=== PATIENT | male | born 1980 | race Caucasian/White ===

== ENCOUNTER 2022-10-23 10:42 | Outpatient (AMB) | payer OTHER, SELFPAY ==
--- NOTE | 2022-10-23 11:11 | A.OFFVIS_ITS ---
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 Accompanied by: Self / Same As Patient Allergies No Known Allergies [No Known Allergies*] Allergy (Unverified 10/23/22 23:18) Environmental Allergy (Unknown, Uncoded 10/23/22 23:18) Unknown shell fish Allergy (Unknown, Uncoded 10/23/22 23:18) hives shellfish Allergy (Unknown, Uncoded 10/23/22 23:18) throat itch triggered even by the smell Medication List - Last Reconciled 10/23/22 by YAMILETH Maravilla-SELENE acetaminophen 325 mg PO BID PRN acetaminophen-codeine 300-30 mg 1 tab PO Q8H 3 days albuterol sulfate 90 mcg/actuation 2 puffs inhalation QID cetirizine 10 mg PO DAILY desonide 0.05% 1 appl topical BID diazepam (Valium) 2 mg PO DAILY epinephrine 0.3 mg IM ONCE PRN fludrocortisone 0.1 mg PO BID fluticasone propionate 50 mcg/actuation 1 spray intranasal DAILY gabapentin 200 mg PO BEDTIME magnesium oxide 420 mg PO DAILY omeprazole 20 mg PO DAILY riboflavin (vitamin B2) 100 mg PO DAILY sildenafil 100 mg PO DAILY PRN HPI HPI Comments History of Present Illness Details Christian is a very pleasant male patient of Dr. Young. He has a past medical history of alcohol dependence in remission, bronchial asthma, chronic rhinitis, GERD, insomnia, intervertebral disc disorders with radiculopathy in the lumbar region, erectile dysfunction, migraines, CLARE, PTSD,and tinnitus. He presents to the office today for - vasectomy evaluation Vasectomy evaluation The patient presents for vasectomy consultation.? He is currently however in a relationship. He has fathered -? 4 children, with a single partner.? The youngest child is 9 years old and oldest is 19 years old. His partner is aware and permissive for a vasectomy. Current form of control is hormones as his partner is using control patch Current employment is working in [place] for the [employer]. The vasectomy may be complicated due to a history of no complicating issues. Patient education has been provided via AUA video, via printed information, risks of failure, recovery time, bruising and potential pain syndrome have been stressed Discussion today focused on the presence of vasectomy and the risks, benefits and alternatives that are available. Vasectomy as intended as a permanent form of control. Printed information and literature was provided to the patient. Overall there is a one in 2500 failure rate. This can occur at any time after vasectomy. Risks were discussed highlighting hematoma, spermatocele, epididymal congestion, development of sperm antibodies, and development of chronic pain estimated between 1-5%. The procedure was reviewed in detail. Anatomical diagrams of the male genitalia were used to explain the location of the vas deferens. The vas deferens will be transected, the proximal end will be cauterized, a metal clip would be applied to separate the 2 vas deferens ends. It was explained the procedure will be done in the office and takes approximately 10-15 minutes. Less common problems that arise with vasectomy include hematoma, bleeding, allergic reaction to anesthetic, epididymal infection, epididymal congestion, scrotal discomfort, spermatic leak, spermatic granuloma and the possibility of antisperm antibodies. He understands these risks and wishes to proceed. Consent was signed at the office today. He also understands that it takes 12 weeks for sperm to fully clear the system. He will need to provide a semen sample at 12 weeks and if this is not clear a 2nd sample at 16 weeks. Medical clearance to stop using protection will only be provided if he satisfies published criteria for sperm clearance. [facility] Medical History Alcohol dependence in remission Brief loss of consciousness Bronchial asthma Chronic rhinitis Ganglion Gastro-esophageal reflux disease without esophagitis Insomnia Intervertebral disc disorders with radiculopathy, lumbar region Male erectile dysfunction, unspecified Migraine headache Migraine without aura, not intractable, without status migrainosus Mild intermittent asthma, uncomplicated Obstructive sleep apnea (adult) (pediatric) Other congenital malformation of penis Pain in left knee Post traumatic stress disorder Seizure disorder Sleep apnea Superior glenoid labrum lesion Syncope and collapse Tinnitus Surgical History History of spinal fusion Review of Systems Const All systems reviewed & are unremarkable except as noted in HPI and below Reports as per HPI Eyes Reports no additional complaints ENT Reports as per HPI Card Reports no additional complaints Resp Reports as per HPI GI Reports as per HPI Reports as per HPI Musc Reports as per [facility] Neuro Reports as per [facility] Psych Reports as per HPI Endo Reports as per HPI Arpan/Lymph Reports no additional complaints Aller/Immun Reports as per HPI Physical Exam Const General: cooperative, healthy appearing, comfortable, no acute distress, well developed, alert and awake Orientation/consciousness: patient oriented x3 Limitations: no limitations HEENT Head: Yes normal to inspection, Yes normocephalic and Yes atraumatic Ears: hearing grossly normal bilaterally Eyes General: appearance normal, both eyes and all related structures Neck Neck: Yes normal visual inspection and Yes trachea midline Chest Chest palpation & inspection: normal inspection of the chest Resp Effort & Inspection: normal respiratory effort and able to speak in complete sentences Cardio Rate: regular rate GI Inspection: Yes normal to inspection General: Yes no CVA tenderness Male General Exam: Yes normal external exam Penis: normal penis and circumcised Meatus: meatus normal Scrotum: scrotum normal Testes: Testes normal Back/Spine/Pelvis Back: no CVA tenderness Skin General skin exam: no rashes or lesions noted Neuro General: patient oriented x3 Extrem General: Yes normal to inspection Psych Appearance: grossly normal and well kempt Mental Status: mental status grossly normal Speech and movement: Normal speech and movement present and Clear speech present Affect: normal affect Attitude: cooperative Thought process: Normal thought process present Thought content: Normal thought content present Insight: Good insight present (Psych) Judgement: Good judgement present (Psych) Results AMB Urinalysis, Automated UA Leukoctes 0 Kaylah/uL Last Edit by [facility] on 10/23/22 11:40 UA Nitrite Last Edit by [facility] on 10/23/22 11:40 UA Urobilinogen 0.2 mg/dL Last Edit by [facility] on 10/23/22 11:40 UA Protein 0 mg/dL Last Edit by [facility] on 10/23/22 11:40 UA pH 6.5 Last Edit by [facility] on 10/23/22 11:40 UA Blood 0 Jimmie/uL Last Edit by [facility] on 10/23/22 11:40 UA Specific Jefferson 1.015 Last Edit by [facility] on 10/23/22 11:40 UA Ketone Last Edit by [facility] on 10/23/22 11:40 UA Bilirubin 0 mg/dL Last Edit by Alisia Reyes on 10/23/22 11:40 UA Glucose 0 mg/dL Last Edit by Alisia Reyes on 10/23/22 11:40 Results Reviewed Results Reviewed: Laboratory Last Values Urine pH (Auto) 6.5 10/23/22 11:13 Specific Jefferson (Auto) 1.015 10/23/22 11:13 Urine Protein (Auto) 0 mg/dL 10/23/22 11:13 Glucose (UA)(Auto) 0 mg/dL 10/23/22 11:13 Urine Blood (Auto) 0 Jimmie/uL 10/23/22 11:13 Urine Bilirubin (Auto) 0 mg/dL 10/23/22 11:13 Urine Urobilinogen (Auto) 0.2 mg/dL 10/23/22 11:13 Leukocyte Esterase (Auto) 0 Kaylah/uL 10/23/22 11:13 Assessment & Plan Assessment & Plan (1) Anxiety about health: Code(s): F41.8 - Other specified anxiety disorders (2) Vasectomy evaluation: Code(s): Z30.09 - Encounter for other general counseling and advice on contraception Plan In office urinalysis results reviewed with the patient today Discussed at length vasectomy; discussed risks and benefits Prescriptions provided; discussed importance of bringing medication to office prior to procedure All questions were answered Will schedule for vasectomy with Dr. Leong as discussed. Orders: Orders AMB Urinalysis Automated Today Z13.9 - Encounter for screening, unspecified Medications: New diazepam (Valium) take one tab when arrive for procedure 2 mg PO DAILY 2 tabs 0RF anxiety F41.8 - Other specified anxiety disorders acetaminophen-codeine 300-30 mg 1 tab PO Q8H 3 days 9 tabs 0RF F41.8 - Other specified anxiety disorders Patient Instructions: The patient had an opportunity to ask questions regarding the treatment plan. All questions were answered. Physical exam, labs, and imaging were discussed and reviewed in detail. As well as risks, benefits, and discussion of treatment choices. No major barriers to understanding were identified. The patient expressed understanding and agreement with the above treatment plan. The patient was made aware they should contact our office by phone for worsening of their current condition, the appearance of new symptoms, or with any questions or concerns. Compliance is encouraged with any medications and follow up testing that is ordered. It is a privilege to be allowed the opportunity to participate in? your urological care.? Again, if you have any questions or concerns If you have any questions or concerns please do not hesitate to contact me. The office is [phone]. This note is constructed using voice recognition software. While every effort has been made to ensure accuracy office clerk assistant errors may have been included. Yours sincerely, YAMILETH Maravilla-SELENE Coding Level of Care Code New Pt Level 4 (40181) Diagnoses Anxiety about health F41.8 Vasectomy evaluation Z30.09
== END 2022-10-23 12:00 | disposition home or self-care (01) ==
PROVIDERS: Visit Provider Nurse Practitioner Family
DX: F41.8 Other specified anxiety disorders (principal); Z30.09 Encounter for other general counseling and advice on contraception
CPT/HCPCS: 99204

== ENCOUNTER → 2022-10-23 10:42 | Outpatient (BNVA) | payer OTHER, SELFPAY | PROVIDERS: Visit Provider Nurse Practitioner Family | DX: Z30.09 Encounter for other general counseling and advice on contraception (principal); F41.8 Other specified anxiety disorders | CPT/HCPCS: 99202 ==

== ENCOUNTER 2022-11-15 08:22 | Outpatient (AMB) | payer OTHER, SELFPAY ==
[2022-11-15 08:23] VITALS: BP 104/68; PULSE 68; O2SAT 97; BMI 26.5
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
== END 2022-11-15 09:49 | disposition home or self-care (01) ==
PROVIDERS: PCP Internal Medicine; Visit Provider Nurse Practitioner Family
DX: G43.109 Migraine with aura, not intractable, without status migrainosus (principal); G47.33 Obstructive sleep apnea (adult) (pediatric); G44.309 Post-traumatic headache, unspecified, not intractable
CPT/HCPCS: 99204; 99214

== ENCOUNTER → 2022-11-15 08:22 | Outpatient (BNVA) | payer OTHER, SELFPAY | PROVIDERS: PCP Internal Medicine; Visit Provider Nurse Practitioner Family | DX: G43.109 Migraine with aura, not intractable, without status migrainosus (principal); G44.309 Post-traumatic headache, unspecified, not intractable; G47.33 Obstructive sleep apnea (adult) (pediatric) | CPT/HCPCS: 99202 ==

== ENCOUNTER → 2022-12-29 10:16 | Outpatient (BNVA) | payer OTHER, SELFPAY | PROVIDERS: PCP Internal Medicine; Visit Provider Nurse Practitioner Family ==

== ENCOUNTER 2023-02-01 17:03 | Emergency (ER) | payer OTHER, SELFPAY ==
--- NOTE | ~2023-02-01 | XR_ITS ---
EXAMINATION: XR RIBS, RIGHT CLINICAL INFORMATION: Fall. COMPARISON: None available. TECHNIQUE: 3 views of the right ribs were obtained. FINDINGS: Lungs are clear. No consolidation, pneumothorax, or pleural effusion. The cardiomediastinal silhouette and pulmonary vasculature are normal. Osseous structures are unremarkable. Multiple views of right ribs reveal no visible fracture or bony abnormality. The soft tissues are normal. XR/XR ribs RT min 3V w CXR1V IMPRESSION: 1. Unremarkable chest exam. 2. Unremarkable right rib exam.
[2023-02-01 17:18] VITALS: BP 111/71; PULSE 71; RESP 18; TEMP 36.8; O2SAT 98; BMI 25.8
--- NOTE | 2023-02-01 17:20 | ED_ITS ---
HPI - General Adult General Chief complaint: Fall Stated complaint: right side rib inj Time Seen by Provider: 02/01/23 18:22 Source: patient Mode of arrival: ambulatory Limitations: no limitations History of Present Illness HPI narrative: Patient is a 42-year-old male presenting to the emergency department complaint of right lateral rib pain since a fall on Sunday. Patient reports that he became dizzy and grabbed onto a metal chair, but the chair tipped causing him to fall on to the back of the chair which made contact with his ribs. He denies any head strike or loss of consciousness. He is not anticoagulated. Reports he has been using ibuprofen for pain. Denies any shortness of breath. Reports pain increases with palpation and movement. Patient reports that he is currently seeing his PCP regarding his episodes of dizziness and labile blood pressures and states that he is only interested in being evaluated for his rib pain. MD complaint: Right rib pain Onset (ago): day(s) Location: chest Radiation: non-radiation Severity: moderate Severity scale (1-10): 7 Quality: aching Pain Consistency: colicky Relieving factors: rest Exacerbating factors: movement and other (Palpation) Associated symptoms: denies other symptoms Treatments prior to arrival: NSAID Related Data Home Medications Medication Instructions Recorded Confirmed acetaminophen 325 mg tablet 325 mg PO BID PRN 09/28/22 11/15/22 albuterol sulfate 90 mcg/actuation 2 puff inhalation QID 09/28/22 11/15/22 aerosol inhaler cetirizine 10 mg tablet 10 mg PO DAILY 09/28/22 11/15/22 desonide 0.05 % topical cream 1 appl topical BID 09/28/22 11/15/22 epinephrine 0.3 mg/0.3 mL 0.3 mg IM ONCE PRN 09/28/22 11/15/22 injection, auto-injector fluticasone propionate 50 1 spray intranasal DAILY 09/28/22 11/15/22 mcg/actuation nasal spray,suspension omeprazole 20 mg capsule,delayed 20 mg PO DAILY 09/28/22 11/15/22 release sildenafil 100 mg tablet 100 mg PO DAILY PRN 09/28/22 11/15/22 Previous Rx's Medication Instructions Recorded acetaminophen 300 mg-codeine 30 mg 1 tab PO Q8H 3 days #9 tabs 10/23/22 tablet diazepam 2 mg tablet (Valium) 2 mg PO DAILY anxiety #2 tabs 10/23/22 amitriptyline 10 mg tablet 10 mg PO BEDTIME 30 days #30 tabs 11/15/22 sumatriptan succinate 100 mg tablet 50 - 100 mg (0.5 - 1 x 100 mg) PO 11/15/22 .COMPLEX PRN migraine headache 30 days #12 tabs rizatriptan 10 mg tablet 5 - 10 mg (0.5 - 1 x 10 mg) PO Q2H 12/05/22 PRN migraine headache 21 days #12 tabs erenumab-aooe 140 mg/mL 140 mg subcut ONCE 30 days #1 mL 12/21/22 subcutaneous auto-injector (Aimovig Autoinjector) lidocaine 5 % topical patch 1 patch topical DAILY #15 ea 02/01/23 Allergies Allergy/AdvReac Type Severity Reaction Status Date / Time shell fish Allergy Intermediate hives Uncoded 02/01/23 17:17 shellfish Allergy Intermediate throat Uncoded 02/01/23 17:17 itch triggered even by the smell Environmental Allergy Unknown Unknown Uncoded 11/15/22 08:28 Review of Systems Review of Systems: As per HPI. Yes all other systems are reviewed and are negative Constitutional: Constitutional: Reports as per HPI [facility] Past Medical History Medical History (Updated 02/01/23 @ 18:53 by Marychuy Hill NP) Syncope and collapse Superior glenoid labrum lesion Pain in left knee Obstructive sleep apnea (adult) (pediatric) Mild intermittent asthma, uncomplicated Migraine without aura, not intractable, without status migrainosus Male erectile dysfunction, unspecified Intervertebral disc disorders with radiculopathy, lumbar region Insomnia Gastro-esophageal reflux disease without esophagitis Ganglion Chronic rhinitis Brief loss of consciousness Alcohol dependence in remission Other congenital malformation of penis Seizure disorder Bronchial asthma Tinnitus Migraine headache Sleep apnea Post traumatic stress disorder Surgical History (Updated 11/15/22 @ 08:32 by Diana Soto CMA) History of shoulder surgery History of spinal fusion Social History Social History (Updated 11/15/22 @ 08:32 by Diana Soto CMA) Alcohol intake: current Alcohol intake frequency: holidays/special occasions only Patient Tobacco Use Status: Never used Tobacco Substance Use Type: Marijuana Advance Directives: No Advance Directives Information Provided: No Physical Exam ED Vital Signs: Vital Signs - 24 hr 02/01/23 17:18 Temperature 98.2 F Pulse Rate 71 Respiratory Rate 18 Blood Pressure 111/71 Pulse Oximetry 98 Oxygen Delivery Method Room Air BMI result Body Mass Index 25.8 Vital signs have been reviewed and appear to be correct. Blood pressure normal. Heart rate normal. Respiratory rate normal. Temperature normal. Oxygen saturation normal. Const General: cooperative, healthy appearing and no acute distress Orientation/consciousness: oriented to person, oriented to place, oriented to time and patient oriented x3 Limitations: no limitations HENMT Head: Yes normocephalic and Yes atraumatic Ears: external ears normal General nose exam: Normal external nose present Face and sinus: Yes face symmetric Mouth: oropharynx normal and moist mucous membranes Throat: Yes uvula midline Eyes Pupils: Equal, round and reactive pupils present Neck Neck: Yes normal visual inspection and Yes supple Chest Chest palpation & inspection: tenderness rib right mid-axillary line involving the 10th rib, involving the 11th rib and involving the 12th rib and other (slight ecchymosis over right lower ribs at mid-axillary line) Resp Effort & Inspection: normal respiratory effort, able to speak in complete sentences, no respiratory distress and no use of accessory muscles Auscultation: clear to auscultation bilaterally Cardio Rate: regular rate Rhythm: regular rhythm Heart sounds: S1 normal heart sound present and S2 normal heart sound present GI Palpation (GI): Soft to palpation and nontender Auscultation: normoactive bowel sounds General: Yes no CVA tenderness Back/Spine/Pelvis Back: no CVA tenderness Skin General skin exam: elasticity normal and turgor normal Neuro General: oriented to person, oriented to place, oriented to time, patient oriented x3, moves all extremities, no focal motor deficits and CN's II-XI intact bilaterally Cranial nerves: Yes Equal, round and reactive pupils present Cognition (Neuro): normal cognition Extrem General: Yes full ROM, Yes no pedal edema and Yes no calf tenderness Psych Mental Status: mental status grossly normal Affect: normal affect Thought process: Normal thought process present Course Course Course Narrative: RME- 42 year old male presents for evaluation of right rib pain after a fall 4 days ago. Patient has a history of neurocardiogenic syncope he has been seen by his doctor in the past a workup for this. He reports that he got dizzy and fell on Sunday which is consistent with his history but he landed with his ribs on the right side of a chair and has had pain at presents with deep breathing or movement. Plan for x-ray of the right ribs with PA chest. The patient reports that he has not been dizzy in the last 4 days and he has had this worked up numerous times in the past. Medical Decision Making Medical Decision Making [facility] Narrative: Patient is a 42-year-old male presenting to the emergency department complaint of right lateral rib pain since a fall on Sunday. On exam patient is awake, A+Ox3, VS WNL, afebrile, normal neurological exam without focal deficits, physical exam findings as above. Given reported symptoms and physical exam findings, initial differential includes rib contusion, rib fracture, pneumothorax, muscle strain. X-ray notable for no evidence of rib fracture or pneumothorax. My interpretation is in agreement with the radiologist's interpretation. Discussed with patient that given mild ecchymosis symptoms are likely related to contusion. Advised patient to continue using ibuprofen, can add Tylenol. Will prescribe a topical lidocaine patches. Return precautions discussed at bedside. Instructed patient to follow-up with primary care provider. Patient verbalized understanding of and agreement with plan. Differential Diagnosis Differential Diagnoses: The differential diagnosis associated with the presentation includes As per MDM. Independent Interpretation I performed an independent interpretation of an: Plain X-Ray Interpretation: No evidence of rib fracture or pneumothorax. Radiology Impression Discussion of test interpretation with radiology: I have reviewed the radiologist's reading. Radiologist Impression: XR/XR ribs RT min 3V w CXR1V IMPRESSION: 1. Unremarkable chest exam. 2. Unremarkable right rib exam. External Record Review External record reviewed: Inpatient record, Office record and Outpatient record Prescription Management I considered prescription management with: Pain Medication Discharge Plan Discharge Clinical Impression: Contusion of rib on right side Qualifiers: Encounter type: initial encounter Qualified Code(s): S20.211A - Contusion of right front wall of thorax, initial encounter Patient Disposition: Home, Self-Care Instructions: Contusion in Adults (ED), Rib Contusion (ED) Additional Instructions: You were evaluated in the emergency department today for rib pain. Your x-ray did not show evidence of any fractures. You should continue to utilize ibuprofen every 6 hours as needed for pain, can also alternate 650 mg of Tylenol every 6 hours for pain. You are being prescribed topical lidocaine patches which you can wear for up to 12 hours in a 24 hour period, do not apply heat directly over the patches. Please follow-up with your primary care provider. Return to the emergency department if you develop chest pain, shortness of breath, fever or any other concerning symptoms. Prescriptions: New lidocaine 5 % adhesive patch,medicated 1 patch topical DAILY Qty: 15 0RF Rx Instructions: leave on most painful area for up to 12 hrs, do not apply heat directly over patches No Action rizatriptan 10 mg tablet 5 - 10 mg PO Q2H PRN (Reason: migraine headache) 21 Days Qty: 12 3RF Rx Instructions: max 2 tabs per day or 4 tabs per week Aimovig Autoinjector 140 mg/mL auto-injector 140 mg subcut ONCE 30 Days Qty: 1 6RF albuterol sulfate 90 mcg/actuation HFA aerosol inhaler 2 puff inhalation QID cetirizine 10 mg tablet 10 mg PO DAILY epinephrine 0.3 mg/0.3 mL auto-injector 0.3 mg IM ONCE PRN fluticasone propionate 50 mcg/actuation spray,suspension 1 spray intranasal DAILY Rx Instructions: administer into each nostril omeprazole 20 mg capsule,delayed release(DR/EC) 20 mg PO DAILY sildenafil 100 mg tablet 100 mg PO DAILY PRN Rx Instructions: administer 30 minutes to 4 hours before activity desonide 0.05 % cream 1 appl topical BID acetaminophen 325 mg tablet 325 mg PO BID PRN diazepam [Valium] 2 mg tablet 2 mg PO DAILY Qty: 2 0RF Rx Instructions: take one tab when arrive for procedure acetaminophen-codeine 300-30 mg tablet 1 tab PO Q8H 3 Days Qty: 9 0RF amitriptyline 10 mg tablet 10 mg PO BEDTIME 30 Days Qty: 30 3RF sumatriptan succinate 100 mg tablet 50 - 100 mg PO .COMPLEX PRN (Reason: migraine headache) 30 Days Qty: 12 6RF Rx Instructions: 50 - 100 mg orally at onset of headache, may repeat in 2 hrs PRN; max 2 tabs per day or 4 tabs/week (may take with Ibuprofen)
== END 2023-02-01 19:18 | disposition home or self-care (01) ==
PROVIDERS: Emergency Provider Internal Medicine
DX: S20.211A Contusion of right front wall of thorax, initial encounter (principal); R07.81 Pleurodynia; R07.89 Other chest pain; M54.2 Cervicalgia; R51.9 Headache, unspecified; R42 Dizziness and giddiness; Z79.899 Other long term (current) drug therapy
CPT/HCPCS: 71101; 99282; 99283

== ENCOUNTER 2023-03-21 14:41 | Outpatient (AMB) | payer OTHER, SELFPAY ==
--- NOTE | 2023-03-21 15:01 | MHC.OFFVIS ---
Intake Intake Visit Reasons: vasectomy Intake Note: Patient is present for Vasectomy Allergies shell fish Allergy (Intermediate, Uncoded 03/21/23 15:02) hives shellfish Allergy (Intermediate, Uncoded 03/21/23 15:02) throat itch triggered even by the smell Environmental Allergy (Unknown, Uncoded 03/21/23 15:02) Unknown HPI HPI Comments History of Present Illness Details Christian is a pleasant male patient of Dr. Young. He has a past medical history of alcohol dependence in remission, bronchial asthma, chronic rhinitis, GERD, insomnia, intervertebral disc disorders with radiculopathy in the lumbar region, erectile dysfunction, migraines, CLARE, PTSD,and tinnitus. He presents to the office today for - vasectomy evaluation Works for [employer] Vasectomy procedure The patient presents for vasectomy procedure.? He is currently however in a relationship. He has fathered -? 4 children, with a single partner.? The youngest child is 9 years old and oldest is 19 years old. His partner is aware and permissive for a vasectomy. Current form of control is hormones as his partner is using control patch 12w f/u [facility] Medical History Syncope and collapse Superior glenoid labrum lesion Pain in left knee Obstructive sleep apnea (adult) (pediatric) Mild intermittent asthma, uncomplicated Migraine without aura, not intractable, without status migrainosus Male erectile dysfunction, unspecified Intervertebral disc disorders with radiculopathy, lumbar region Insomnia Gastro-esophageal reflux disease without esophagitis Ganglion Chronic rhinitis Brief loss of consciousness Alcohol dependence in remission Other congenital malformation of penis Seizure disorder Bronchial asthma Tinnitus Migraine headache Sleep apnea Post traumatic stress disorder Surgical History History of shoulder surgery History of spinal fusion Social History Alcohol intake: current Alcohol intake frequency: holidays/special occasions only Patient Tobacco Use Status: Never used Tobacco Substance Use Type: Marijuana Review of Systems Const Denies chills and Denies fever(s) Card Reports no additional complaints and Denies syncope Resp Denies cough GI Denies abdominal pain and Denies heartburn Reports as per HPI and Denies change in libido Neuro Denies syncope Psych Denies change in libido Endo Denies change in libido Physical Exam Const General: cooperative, healthy appearing, comfortable and no acute distress Orientation/consciousness: patient oriented x3 HEENT Face and sinus: Yes normal facial exam Mouth: moist mucous membranes Neck Neck: Yes normal visual inspection, Yes full ROM and Yes trachea midline Chest Chest palpation & inspection: normal inspection of the chest Resp Effort & Inspection: normal respiratory effort, able to speak in complete sentences and no respiratory distress GI Inspection: Yes normal to inspection Back/Spine/Pelvis Cervical Spine: normal cervical lordosis Thoracic/Lumbar Spine: thoracic and lumbar spine normal to inspection Skin General skin exam: no rashes or lesions noted Neuro General: patient oriented x3, gait normal, tone normal and moves all extremities Extrem General: Yes normal to inspection and Yes capillary refill normal Office Procedures Vasectomy Details: Preoperative diagnosis: Anxiety regarding Postoperative diagnosis: Anxiety regarding unplanned Procedure: Bilateral vasectomy Informed consent had been completed. Preoperative and postoperative instructions were provided to the patient. The patient has transportation to home identified at the completion of the procedure. Anti-anxiolytic prescription medication had been taken after consent verification and all questions answered. Tylenol with Codeine pain medication was also provided. The penis was elevated using a rubber band that was attached to the patient's shirt. Both vasa were palpated through the skin using a 3 finger technique and the penoscrotal junction was prepped with Betadine. After Betadine application the left vas was elevated using a 3 finger grasping technique. 1% lidocaine was used to create a subdermal bubble. Approximately 2 minutes were allowed to for local anesthetic uptake. Further anesthetic was then advanced using the 25-gauge needle along the vasa in a proximal fashion. Using the sharp spreading instrument the scrotum was spread longitudinally in line with the vasa. The vasa was elevated from the scrotum using a ring clamp. Care was taken to elevate the superior portion of the vas. Using the sharp spreading instrument the vasal sheath was removed from the covering of this segment of the vas. A fresh knife blade was used to partially divide the vasal sheath and to strip the vasal sheath from the vasa. The vasa was grasped with an Addson forcep and elevated from the incision. The ring clamp was placed so it grasped the elevated vas. The vasal sheath was dissected from the vaas in a proximal and distal fashion. This allowed the blood vessels of the vasa to retract from the vasa. Using the battery-powered cautery a partial division was made in the proximal vas. The battery-powered cautery was used to cauterize the proximal end of the vas. This was then cut and allowed to retract into the vasal sheath. A clip was placed on the vasal sheath to create a fascial interposition. The distal portion of the vas was then cut in order to obtain a segment of vasa. The vasa were allowed to retract back into the scrotum. A small snap was then used to approximate the skin edges. A similar procedure was repeated on the right side. He tolerated the procedure well. Triple antibiotic was applied. A gauze was applied. An ice pack was applied to assist with minimizing swelling. Postoperative instructions were confirmed. He understands the need to continue to use control methods. A semen sample should be brought for inspection under the microscope in 10-12 weeks. CPT 70591 Vasectomy performed by: Jacinto Leong Time out checklist: patient, procedure, site marked/identified, positioning of patient, supplies available, allergies confirmed and team agrees on procedure Anesthetic used: other Specimens: vas segments not sent to pathology [id number] - Vasectomy Assessment & Plan Assessment & Plan (1) Anxiety about health: Code(s): F41.8 - Other specified anxiety disorders Plan 12mk f/u Patient Instructions: Imaging studies, laboratory and physical exam results were discussed and reviewed in detail. No major barriers to patient understanding were identified. An opportunity to ask questions regarding the treatment plan was provided. All questions were answered. The patient expressed understanding and agreement with the above treatment plan. The patient is aware they should contact our office by phone for worsening of their current condition or the appearance of new urologic symptoms. Compliance is encouraged with any medications and followup testing that is ordered. It is a privilege to participate in the urologic care of your patient. If you have any questions or concerns regarding treatment for the above conditions, or other urologic issues, please do not hesitate to contact me. The office telephone contact is [phone]. This note is constructed using voice recognition software. While every effort has been made to ensure accuracy patrol mother errors may have been included. Yours sincerely, Dr Jacinto Leong MD, [facility] - Urology Providers of Expert, Compassionate Care for the Genitourinary System Coding Level of Care Code Procedure Only Diagnoses Anxiety about health F41.8 CPT Codes Office Procedure - CPT: 52765 - Vasectomy ([id number])
== END 2023-03-21 15:51 | disposition home or self-care (01) ==
PROVIDERS: PCP Internal Medicine; Visit Provider Urology
DX: Z30.2 Encounter for sterilization (principal); F41.8 Other specified anxiety disorders
CPT/HCPCS: 55250

== ENCOUNTER → 2023-03-21 14:41 | Outpatient (BNVA) | payer OTHER, SELFPAY | PROVIDERS: PCP Internal Medicine; Visit Provider Urology | DX: Z30.2 Encounter for sterilization (principal); F41.8 Other specified anxiety disorders | CPT/HCPCS: 55250 ==

== ENCOUNTER 2023-04-27 18:49 | Outpatient (REF) | payer OTHER, SELFPAY ==
--- NOTE | ~2023-04-27 | MR_ITS ---
EXAMINATION: MR CERVICAL SPINE WITHOUT CONTRAST CLINICAL INFORMATION: Neck pain with numbness and tingling in legs and right hand. COMPARISON: None available. TECHNIQUE: Multiplanar, multisequential imaging of the cervical spine was performed without contrast. FINDINGS: VERTEBRAL BODIES AND PARASPINAL SOFT TISSUES: The marrow signal is within normal limits. There are no compression fractures. No significant subluxations evident. Diffuse mildly reduced intradiscal signal evident. The vertebral artery flow voids are maintained. The paraspinal soft tissues appear normal. The imaged lung apices are grossly clear. CERVICOMEDULLARY JUNCTION AND VISUALIZED POSTERIOR FOSSA: The craniovertebral junction and imaged portions of the brain parenchyma appear normal. No cord signal abnormality or syrinx is identified. SPINAL LEVELS: C2-C3: No focal disc protrusion or central canal stenosis. Patent foramina. C3-C4: Minimal annular bulge without central canal stenosis or foraminal narrowing. C4-C5: Small central disc protrusion and mild uncovertebral joint spurring with mild central canal stenosis and moderate right foraminal narrowing. C5-C6: Shallow, broad-based posterior disc bulge and uncovertebral joint spurring on the right side with moderate right foraminal encroachment and mild narrowing of the central canal. C6-C7: Very mild posterior disc bulge without central canal stenosis or foraminal narrowing. C7-T1: Minimal disc bulge and left-sided uncovertebral joint spurring with moderate left foraminal narrowing. No central canal stenosis. MR/MR cervical spine wo con IMPRESSION: 1. Small central disc protrusion and uncovertebral joint spurring at the C4-C5 level with mild central canal stenosis and moderate right foraminal narrowing. 2. Broad-based posterior disc bulge and uncovertebral joint spurring at the C5-C6 level with mild central canal stenosis and moderate right foraminal narrowing. 3. Moderate left foraminal narrowing due to uncovertebral joint spurring at the C7-T1 level.
--- NOTE | ~2023-04-27 | MR_ITS ---
EXAMINATION: MR KNEE WITHOUT CONTRAST, LEFT CLINICAL INFORMATION: Constant left knee pain. Worsening stiffness and affected range of motion. COMPARISON: 11/29/2015 TECHNIQUE: MRI of the knee without contrast was performed using routine sequences on a high-field scanner. FINDINGS: MENISCI: Medial Meniscus: Intact. Lateral Meniscus: Intact. LIGAMENTS: Cruciate: Intact. Collateral: Intact. EXTENSOR MECHANISM: The quadriceps and patellar tendons are intact. ARTICULAR CARTILAGE/BONE: A bone island is present in the distal femur deep to the central trochlea. No suspicious osseous lesions. Patellofemoral Compartment: At the central trochlea, there is a 1 x 1.2 cm area of partial-thickness cartilage loss with full-thickness fissuring, cortical irregularity, and subchondral edema. This region is slightly more pronounced as compared to prior. Patellar cartilage appears well preserved. Normal trochlear morphology. Medial Compartment: Normal. Lateral Compartment: Normal. JOINT FLUID AND BURSAE: Trace joint fluid, within normal limits. No Horton's cyst. No loose bodies. MR/MR knee LT wo con IMPRESSION: 1. A 1 x 1.2 cm area of partial-thickness cartilage loss and full-thickness fissuring at the central trochlea, slightly more pronounced as compared to prior. 2. Intact ligaments and menisci.
== END 2023-04-27 18:50 | disposition home or self-care (01) ==
LOC: HO.MRI 18:49
PROVIDERS: PCP Nurse Practitioner Family; Visit Provider Nurse Practitioner Family
DX: M54.2 Cervicalgia (principal); M25.562 Pain in left knee
CPT/HCPCS: 72141; 73721

== ENCOUNTER 2023-05-15 15:03 | Outpatient (AMB) | payer OTHER, SELFPAY ==
[2023-05-15 15:05] VITALS: BP 112/65; PULSE 69; BMI 24.4
--- NOTE | 2023-05-15 15:05 | A.OFFVIS_ITS ---
Intake Vital Signs 3 05/15/23 15:05 Height 5 ft 7 in Weight 155 lb 10.342 oz BMI 24.4 BP 112/65 Blood Pressure Location Rt brachial Position Sitting Pulse 69 Intake Visit Reasons: severe GERD Intake Note: Patient presents to in office visit today as a new patient for severe GERD. CC: Patient states he has suffered from GERD for over ten years. Per patient he has been taking Omeprazole daily for about 6 years and he does not wants to continue on medication. He states the Omeprazole is the only thing that helps with GERD symptoms. Per patient he had an EGD done around to 2018 at [facility]. He states that he tried to wean himself off the Omeprazole by himsel and on the 3rd day the pain was so bad he had to get back on medication. Allergies environmental allergies Allergy (Unknown, Verified 05/15/23 15:13) Unknown No Known Drug Allergies Allergy (Unknown, Verified 05/15/23 15:13) Unknown shellfish derived Allergy (Unknown, Verified 05/15/23 15:13) Hives HPI severe GERD 2 HPI0 Details 42-year-old male here for initial evalua tion of GERD. He is referred by Maliha Monte of the [facility]. PMX Asthma Neurogenic hypotension Migraines Allergic rhinitis ? Seizure disorder Lumbar degenerative disc disease with radiculopathy Ganglion cyst right hand History of alcohol dependence in remission ? 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 THis was about 2002. He did not have any follow up after the EGD, I was just rx'ed omeprazole. He has good control on o2o 20mg qd, but if he starts to wean it he will have severe sx. 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 At time. Not overwt, no FHX of similar sx or GB disease, no CIC or diarrhea, no abd pain, He recently stopped drinking beer and lost some weight. 1 c coffee a day. No wt gain, no diet changes, no new medicines. 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 I reassure him that at a low once a day dose long-term perspective studies are showing this to be a safe medication. We also discussed the PPI rebound phenomenon and if he really does feel motivated to get off the medicine then we could consider titrating him down utilizing something like an H2 ej as an intermediate agent. However, he is feeling very reassure, committed to keeping his calcium and middle intake high to adequate and will continue his omeprazole for now. Will get barium swallow and HP stool to be thorough. This will rule out any severe paraesophageal hernia or physiologic abnormality on barium swallow, and although I would assume he was tested for H pylori on his endoscopy it is probably good to double check to be thorough. Return office visit after the barium swallow [facility] Medical History History of alcohol dependence Ganglion cyst of flexor tendon sheath of finger of right hand Syncope and collapse Superior glenoid labrum lesion Pain in left knee Obstructive sleep apnea (adult) (pediatric) Mild intermittent asthma, uncomplicated Migraine without aura, not intractable, without status migrainosus Male erectile dysfunction, unspecified Intervertebral disc disorders with radiculopathy, lumbar region Insomnia Gastro-esophageal reflux disease without esophagitis Ganglion Chronic rhinitis Brief loss of consciousness Alcohol dependence in remission Other congenital malformation of penis Seizure disorder Bronchial asthma Tinnitus Migraine headache Sleep apnea Post traumatic stress disorder Surgical History H/O esophagogastroduodenoscopy History of shoulder surgery History of spinal fusion Social History Alcohol intake: current Alcohol intake frequency: holidays/special occasions only Patient Tobacco Use Status: Never used Tobacco Substance Use Type: Marijuana Review of Systems Const Denies fatigue, Denies fever(s), Denies night sweats, Denies poor appetite and Denies weight loss ENT Reports Normal hearing present, Denies dental pain, Denies dysphagia, Denies hearing loss, Denies mouth pain, Reports neck pain, Denies odynophagia, Denies throat swelling, Denies tongue swelling and Reports other (Dentition adequate) Card Reports no additional complaints Resp Reports no additional complaints GI Details: Denies abdominal pain, Denies melena, Denies bloating, Denies hematochezia, Denies constipation, Denies GI cramping, Denies dysphagia, Denies excessive flatus, Denies early satiety, Reports heartburn, Denies diarrhea, Denies nausea, Denies odynophagia, Denies vomiting and Denies hematemesis Musc Reports back pain, Reports myalgias and Reports neck pain Skin/Breast Denies pruritus, Denies lesions, Denies rash and Denies jaundice Neuro Reports Normal hearing present and Denies Abnormal speech present Psych Reports anxiety, Reports depression, Denies homicidal ideation and Denies suicidal ideation Endo Denies fatigue Aller/Immun Denies throat swelling and Denies tongue swelling Physical Exam Vital Signs: Last Vital Signs Pulse 69 05/15/23 15:05 BP 112/65 05/15/23 15:05 BMI result Body Mass Index 24.4 Const General: cooperative, no acute distress, well developed and well groomed Nutritional Appearance: average body habitus and well nourished Orientation/consciousness: oriented to person, oriented to place and oriented to time Limitations: No language barrier HEENT Head: Yes normocephalic and Yes atraumatic Eyes General: appearance normal, both eyes and all related structures Pupils: Equal, round and reactive pupils present Neck Neck: Yes normal visual inspection and Yes no lymphadenopathy Thyroid: Thyroid normal Resp Effort & Inspection: normal respiratory effort and able to speak in complete sentences Auscultation: clear to auscultation bilaterally Cardio Rate: regular rate Rhythm: regular rhythm Heart sounds: Normal, physiologic split S2 sound present Peripheral pulses: radial pulses present and posterior tibial pulses present GI Inspection: No distended and No Abdominal panniculus present Palpation (GI): Soft to palpation, nontender, no guarding, not rigid and No hepatosplenomegaly present Percussion: Yes normal to percussion Auscultation: normal bowel sounds Rectal Exam - Male: Yes deferred Abdomen image: 2 1. surgical scar 2. large black and white tattoo Skin General skin exam: no rashes or lesions noted, turgor normal, skin not dry, no jaundice, No spider nevi and no striae Rashes: no rashes Nails: normal Neuro General: oriented to person, oriented to place and oriented to time Cranial nerves: Yes Equal, round and reactive pupils present and Yes Normal hearing present Speech: No Abnormal speech present Extrem General: Yes normal to inspection, No clubbing, No cyanosis and No edema Psych Appearance: grossly normal and well kempt Mental Status: mental status grossly normal Speech and movement: Normal speech and movement present Affect: normal affect Attitude: cooperative Thought process: Normal thought process present and not confabulating Thought content: Normal thought content present Insight: Fair insight present (Psych) Judgement: Fair judgement present (Psych) Assessment & Plan Assessment & Plan (1) GERD (gastroesophageal reflux disease): Code(s): K21.9 - Gastro-esophageal reflux disease without esophagitis Plan The problem started after he was deployed in the [employer], this used to resolve well with TUMX, but then this stopped working. THis was about 2002. He did not have any follow up after the EGD, I was just rx'ed omeprazole. He has good control on o2o 20mg qd, but if he starts to wean it he will have severe sx. He feels that he is fine as long as he continues to take the medication but was worried that he isn't supposed to be on it for any chcf. At time. Not overwt, no FHX of similar sx or GB disease, no CIC or diarrhea, no abd pain, He recently stopped drinking beer and lost some weight. 1 c coffee a day. No wt gain, no diet changes, no new medicines. We discuss the relative chcf risks of PPI use. I reassure him that at a low once a day dose long-term perspective studies are showing this to be a safe medication. We also discussed the PPI rebound phenomenon and if he really does feel motivated to get off the medicine then we could consider titrating him down utilizing something like an H2 ej as an intermediate agent. However, he is feeling very reassure, committed to keeping his calcium and middle intake high to adequate and will continue his omeprazole for now. Will get barium swallow and HP stool to be thorough. This will rule out any severe paraesophageal hernia or physiologic abnormality on barium swallow, and although I would assume he was tested for H pylori on his endoscopy it is probably good to double check to be thorough. Return office visit after the barium swallow Orders: Orders 2 H pylori Ag Stool Today K21.9 - Gastro-esophageal reflux disease without esophagitis [place] barium swallow Today K21.9 - Gastro-esophageal reflux disease without esophagitis Coding Level of Care Code New Pt Level 3 (22689) Diagnoses GERD (gastroesophageal reflux disease) K21.9
== END 2023-05-15 16:36 | disposition home or self-care (01) ==
PROVIDERS: PCP Nurse Practitioner Family; Referring Provider Internal Medicine; Visit Provider Nurse Practitioner
DX: K21.9 Gastro-esophageal reflux disease without esophagitis (principal)
CPT/HCPCS: 99203

== ENCOUNTER → 2023-05-15 15:03 | Outpatient (BNVA) | payer OTHER, SELFPAY | PROVIDERS: PCP Nurse Practitioner Family; Referring Provider Internal Medicine; Visit Provider Nurse Practitioner | DX: K21.9 Gastro-esophageal reflux disease without esophagitis (principal) | CPT/HCPCS: 99202 ==

== ENCOUNTER 2023-07-10 09:27 | Outpatient (REF) | payer OTHER, SELFPAY ==
--- NOTE | 2023-07-10 09:37 | EMG_ITS ---
Right median and ulnar motor and sensory studies were performed. Right radial sensory and median lateral antecubital sensory studies were performed and paraspinal muscles were tested with a needle. IMPRESSION: This is an unremarkable study with no significant abnormality to suggest entrapment neuropathy of median or ulnar nerve, plexopathy, or radiculopathy. MD BETTY Daly/AP / [id number]
== END 2023-07-10 09:28 | disposition home or self-care (01) ==
LOC: HO.NEURO 09:27
PROVIDERS: PCP Nurse Practitioner Family; Visit Provider Nurse Practitioner Family
DX: G60.9 Hereditary and idiopathic neuropathy, unspecified (principal)
CPT/HCPCS: 95886; 95910

== ENCOUNTER 2023-12-05 09:26 | Outpatient (AMB) | payer OTHER, SELFPAY ==
[2023-12-05 09:30] VITALS: BMI 24.1
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
== END 2023-12-05 10:36 | disposition home or self-care (01) ==
PROVIDERS: PCP Nurse Practitioner Family; Visit Provider Nurse Practitioner Family
DX: G44.309 Post-traumatic headache, unspecified, not intractable (principal); G43.109 Migraine with aura, not intractable, without status migrainosus; R29.898 Other symptoms and signs involving the musculoskeletal system
CPT/HCPCS: 99214

== ENCOUNTER → 2023-12-05 09:26 | Outpatient (BNVA) | payer OTHER, SELFPAY | PROVIDERS: PCP Nurse Practitioner Family; Visit Provider Nurse Practitioner Family | DX: G44.309 Post-traumatic headache, unspecified, not intractable (principal); G43.109 Migraine with aura, not intractable, without status migrainosus; R29.898 Other symptoms and signs involving the musculoskeletal system | CPT/HCPCS: 99212 ==

== ENCOUNTER 2024-01-19 18:40 | Emergency (ER) | payer OTHER, SELFPAY ==
--- NOTE | ~2024-01-19 | XR_ITS ---
EXAMINATION: XR FINGER, LEFT CLINICAL INFORMATION: Laceration over second metacarpophalangeal joint COMPARISON: None available. TECHNIQUE: Three views of the left index finger. FINDINGS: The bones and soft tissues are normal. No fracture. Alignment is anatomic. Joint spaces are maintained. XR/XR finger LT min 2V IMPRESSION: Normal finger radiographs. Electronically signed by: Jose R Brantley DO 01/19/2024 07:12 PM EDT
--- NOTE | 2024-01-19 18:45 | ED_ITS ---
HPI - Skin/Abscess/Foreign Bdy General Chief complaint: Wound/Laceration Stated complaint: left hand laceration Time Seen by Provider: 01/19/24 18:54 Source: patient, RN notes reviewed and old records reviewed Mode of arrival: ambulatory Limitations: no limitations History of Present Illness ED Provider: QI ACOSTA PA-C HPI narrative: 43 year old male with hx of GERD, migraine with aura, anxiety, CLARE on CPAP, seizure disorder presents to the ED today for evaluation of laceration to left 2nd digit sustained [employer]IRLEY [employer] while attempting to chop wood with a machete. Tetanus not UTD. Related Data Home Medications ?Medication ?Instructions ?Recorded ?Confirmed albuterol sulfate 90 mcg/actuation 2 puff inhalation QID 09/28/22 12/05/23 aerosol inhaler cetirizine 10 mg tablet 10 mg PO DAILY 09/28/22 12/05/23 desonide 0.05 % topical cream 1 appl topical BID 09/28/22 12/05/23 epinephrine 0.3 mg/0.3 mL 0.3 mg IM ONCE PRN 09/28/22 12/05/23 injection, auto-injector omeprazole 20 mg capsule,delayed 20 mg PO DAILY 09/28/22 12/05/23 release sildenafil 100 mg tablet 100 mg PO DAILY PRN 09/28/22 12/05/23 fluticasone propionate 50 1 spray intranasal DAILY PRN 05/15/23 12/05/23 mcg/actuation nasal spray,suspension Previous Rx's ?Medication ?Instructions ?Recorded topiramate 25 mg tablet 25 - 50 mg (1 - 2 x 25 mg) PO 11/04/23 BEDTIME 30 days #60 tabs eletriptan 40 mg tablet 40 mg PO Q2-4H PRN migraine 12/05/23 headache 30 days #14 tabs magnesium oxide 400 mg (241.3 mg 400 mg PO BEDTIME 30 days #30 tabs 12/05/23 magnesium) tablet ubrogepant 100 mg tablet (Ubrelvy) 100 mg PO ONCE PRN migraine 12/05/23 headache 30 days #16 tabs Allergies Allergy/AdvReac Type Severity Reaction Status Date / Time environmental allergies Allergy Unknown Unknown Verified 01/19/24 18:48 No Known Drug Allergies Allergy Unknown Unknown Verified 01/19/24 18:48 shellfish derived Allergy Unknown Hives Verified 01/19/24 18:48 Review of Systems Review of Systems: Constitutional: No fever, chills, fatigue, night sweats, weight changes ENT/Mouth: No ear pain, hearing loss, nasal congestion, sinus pain, rhinorrhea, sore throat Eyes: No eye pain, swelling, redness, vision changes, discharge Cardio: No chest pain, palpitations, [place], orthopnea, peripheral edema Pulm: No SOB, cough, sputum, wheezing, dyspnea, hemoptysis GI: No nausea, vomiting, hematemesis, abdominal pain, diarrhea, constipation, hematochezia, melena : No irregular bleeding, dysuria, frequency, urgency, hesitancy, hematuria, flank pain, urinary flow changes, urinary incontinence or retention MSK: No back pain, neck pain, joint pain, myalgias Skin: No lesions, rashes, +laceration to left 2nd digit Neuro: No weakness, numbness, paresthesias, LOC, dizziness, headache Psych: No anxiety/panic, depression, SI/HI, AH/VH All other systems reviewed and are negative. [facility] Past Medical History Attestation statement: The following information was validated with the patient. Source: old records reviewed and nursing notes reviewed Medical History History of alcohol dependence Ganglion cyst of flexor tendon sheath of finger of right hand Syncope and collapse Superior glenoid labrum lesion Pain in left knee Obstructive sleep apnea (adult) (pediatric) Mild intermittent asthma, uncomplicated Migraine without aura, not intractable, without status migrainosus Male erectile dysfunction, unspecified Intervertebral disc disorders with radiculopathy, lumbar region Insomnia Gastro-esophageal reflux disease without esophagitis Ganglion Chronic rhinitis Brief loss of consciousness Alcohol dependence in remission Other congenital malformation of penis Seizure disorder Bronchial asthma Tinnitus Migraine headache Sleep apnea Post traumatic stress disorder Surgical History H/O esophagogastroduodenoscopy History of shoulder surgery History of spinal fusion Social History Social History Alcohol intake: current Alcohol intake frequency: holidays/special occasions only Patient Tobacco Use Status: Never used Tobacco Substance Use Type: Marijuana Advance Directives: No Advance Directives Information Provided: No Physical Exam Vital Signs: Vital Signs: Last Vital Signs Temp 98.4 F 01/19/24 18:47 Pulse 85 01/19/24 18:47 Resp 16 01/19/24 18:47 BP 116/82 01/19/24 18:47 Pulse Ox 98 01/19/24 18:47 O2 Del Method Room Air 01/19/24 18:47 BMI result Body Mass Index 25.8 vital signs stable General: Well appearing, in no acute distress. Skin: Warm, dry, intact. see below Ext: +1.5 cm linear lac noted to mcp of left 2nd digit. FROM intact to PIP/DIP/MCP w/ minimal pain. no noted fb. bleeding controlled. Neuro: AOx3. Normal speech. Psych: Appropriate mood and affect. Responds appropriately to questions. Course Course Course Narrative: This is a Rapid Medical Examination (RME) performed by Roseanne Acosta PA-C in triage. Full HPI, ROS, assessment and treatment plan per primary provider in the Main ED. 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 reports accidentally nicking himself while cutting wood with a machete. states it went deep . unsure of tetanus status. + 1.5 cm linear lac noted to mcp of left 2nd digit. FROM intact w/ pain. no noted fb. bleeding controlled, dressing applied. Plan: xr, lac repair, tdap Reevaluation(s) Reevaluation #1: 1946 -- xr without evidence of FB. Tetanus updated. suture to left 2nd MCP repaired with 3 4-0 sutures. 5 mL lidocaine used. Patient tolerated well. Advised to return in 10-14 days for suture removal. Verbalizes understanding. Patient has remained stable throughout ED visit today. Discussed worrisome signs and symptoms and when to return to the ED. All questions answered at this time. Patient is agreeable with disposition and stable for discharge. Medications Administered Discontinued Medications Generic Name Dose Route Start Last Admin Trade Name Freq PRN Reason Stop Dose Admin Diphtheria/Tetanus/Acell Pertussis 0.5 ml 01/19/24 19:03 01/19/24 19:13 Diphth,Pertus(Acell),Tet Adult 0.5 Ml Syringe IM 01/19/24 19:04 0.5 ml .ONCE ONE Administration Lidocaine HCl 5 ml 01/19/24 18:59 01/19/24 19:26 Lidocaine Hcl 1 % Mpf 5 Ml Vial INFILTRATI 01/19/24 19:00 5 ml ONCE ONE Administration Medical Decision Making Medical Decision Making MDM Narrative: 43 year old male with hx of GERD, migraine with aura, anxiety, CLARE on CPAP, seizure disorder presents to the ED today for evaluation of laceration to left 2nd digit sustained [employer] while attempting to chop wood with a machete. Vital signs stable. he is nontoxic appearing and in NAD. on exam, 1.5 cm linear lac noted to mcp of left 2nd digit. FROM intact to PIP/DIP/MCP w/ minimal pain. no noted fb. bleeding controlled. Differential diagnosis includes laceration, abrasion. unlikely fracture, retained fb, ligament/ tendon injury. Plan for xr, tdap booster, laceration repair. Differential Diagnosis Differential Diagnoses: The differential diagnosis associated with the presentation includes As above Admission/Observation Not indicated Independent Interpretation I performed an independent interpretation of an: Plain X-Ray Interpretation: X-ray left 2nd digit without retained foreign body or fracture, agree with radiologist's interpretation. Radiology Impression Discussion of test interpretation with radiology: I have reviewed the radiologist's reading. Radiologist Impression: EXAMINATION: XR FINGER, LEFT CLINICAL INFORMATION: Laceration over second metacarpophalangeal joint COMPARISON: None available. TECHNIQUE: Three views of the left index finger. FINDINGS: The bones and soft tissues are normal. No fracture. Alignment is anatomic. Joint spaces are maintained. XR/XR finger LT min 2V IMPRESSION: Normal finger radiographs. Electronically signed by: Jose R Brantley DO 01/19/2024 07:12 PM EDT External Record Review External record reviewed: Inpatient record Social Determinants Patient?s care significantly limited by Social Determinants of Health including: Other Social Determinant of Health Procedures Laceration Laceration 1: Site: hand (2nd digit) Side (If applicable): left Size (cm): 1.5 Description: linear Depth: simple, single layer Local Anesthetic: lidocaine 1% Amount of anesthesia used (mL): 5 Pre-repair: wound explored Skin layer closed with: nylon Size (cm): 4-0 Number of sutures: 3 Technique: simple, interrupted Nerve Block Nerve Block 1: Time out performed: Yes Local Anesthetic: lidocaine 1% Amount of anesthesia used (mL): 5 Side: left Nerve Blocks: digital Procedure Successful: Yes Patient Tolerated Procedure: well Complications: none Critical Care Time Critical Care Time Critical Care Time: No Discharge Plan Discharge Clinical Impression: Finger laceration Qualifiers: Encounter type: initial encounter Finger: index finger Damage to nail status: w ithout damage Foreign body presence: without foreign body Laterality: left Qualified Code(s): S61.211A - Laceration without foreign body of left index finger without damage to nail, initial encounter Patient Disposition: Home, Self-Care Instructions: Laceration (ED) Additional Instructions: You have been evaluated in the Emergency Department today for a laceration to your left index finger. Your laceration was repaired in the ED with 3 sutures.? Please keep the area surrounding the laceration clean and dry. Please keep the area out of the sunlight for the next 6 months to help prevent scarring.? If you develop redness or swelling at the site of your laceration please come back to the ER for a wound check. Your tetanus shot was updated today. I recommend you take 600mg ibuprofen every 6 hours or tylenol 650mg every 6 hours as needed for pain. If needed, you can alternate these medications so that you take one medication every 3 hours. For example, at noon take ibuprofen, then at 3pm take tylenol, then at 6pm take ibuprofen. Please follow up with your primary care physician in 10-14 days for suture removal. You can also return to the ER or another urgent care facility for this service. Return to the Emergency Department if you experience discharge from your laceration, redness around your laceration, warmth around your laceration, fever, vomiting, numbness, tingling, or any other concerning symptoms. In the case of an emergency call 911. Prescriptions: No Action topiramate 25 mg tablet 25 - 50 mg PO BEDTIME 30 Days Qty: 60 3RF albuterol sulfate 90 mcg/actuation HFA aerosol inhaler 2 puff inhalation QID cetirizine 10 mg tablet 10 mg PO DAILY epinephrine 0.3 mg/0.3 mL auto-injector 0.3 mg IM ONCE PRN omeprazole 20 mg capsule,delayed release(DR/EC) 20 mg PO DAILY sildenafil 100 mg tablet 100 mg PO DAILY PRN Rx Instructions: administer 30 minutes to 4 hours before activity desonide 0.05 % cream 1 appl topical BID fluticasone propionate 50 mcg/actuation spray,suspension 1 spray intranasal DAILY PRN Rx Instructions: administer into each nostril eletriptan 40 mg tablet 40 mg PO Q2-4H PRN (Reason: migraine headache) 30 Days Qty: 14 6RF Rx Instructions: do not exceed 2 doses per 24 hrs Ubrelvy 100 mg tablet 100 mg PO ONCE PRN (Reason: migraine headache) 30 Days Qty: 16 3RF Rx Instructions: take at onset of migraine, may repeat in 2hrs (may take w/ Ibuprofen or Ubrelvy) magnesium oxide 400 mg (241.3 mg magnesium) tablet 400 mg PO BEDTIME 30 Days Qty: 30 6RF Rx Instructions: may hold for loose stools Print Language: Mongolian
[2024-01-19 18:47] VITALS: BP 116/82; PULSE 85; RESP 16; TEMP 36.9; O2SAT 98; BMI 25.8
[2024-01-19] MEDS: Diphth,Pertus(ACell),Tet Adult 0.5 ML SYRINGE IM (19:13)
[2024-01-19] MEDS: Lidocaine HCl 1 % MPF 5 ML VIAL INFILTRATI (19:26)
[2024-01-19 19:49] VITALS: BP 112/82; PULSE 80; RESP 18; TEMP 36.6; O2SAT 98
[2024-01-19 19:56] VITALS: BP 112/82; PULSE 80; RESP 18; TEMP 36.6; O2SAT 98
== END 2024-01-19 19:57 | disposition home or self-care (01) ==
PROVIDERS: Emergency Provider Emergency Medicine
DX: S61.211A Laceration without foreign body of left index finger without damage to nail, initial encounter (principal); W27.0XXA Contact with workbench tool, initial encounter; Y93.H9 Activity, other involving exterior property and land maintenance, building and construction; Y92.017 Garden or yard in single-family (private) house as the place of occurrence of the external cause; Y99.9 Unspecified external cause status; Z23 Encounter for immunization
CPT/HCPCS: 12001; 73140; 90471; 90715; 99282; 99284; J2003

== ENCOUNTER 2024-01-28 11:15 | Emergency (ER) | payer OTHER, SELFPAY ==
[2024-01-28 11:22] VITALS: BP 112/74; PULSE 62; RESP 16; TEMP 36.6; O2SAT 100; BMI 25.8
--- NOTE | 2024-01-28 11:23 | ED.GENADULT ---
HPI - General Adult General Chief complaint: Wound/Laceration Stated complaint: Suture removal Time Seen by Provider: 01/28/24 11:29 Source: patient Mode of arrival: ambulatory Limitations: no limitations History of Present Illness ED Provider: Barbara Macario PA-C HPI narrative: Patient is a 43 year old assigned male at with a history of anxiety, GERD, seizures, and left hand injury presenting to the emergency department today for suture removal. Patient states that 9 days ago she got a left hand laceration from a machete while chopping wood and got stitches here. Patient states that the stitches have been painful and swollen. Patient denies any dizziness, lightheadedness, abdominal pain, nausea, vomiting, fever, chills, blurry vision, double vision, loss of vision, chest pain, difficulty breathing, shortness of breath, back pain, night sweats, pain with urination, increased urinary frequency, increased urinary urgency, blood in his urine or stool, syncope or a near syncopal episode, bowel incontinence, bladder incontinence, or any other complaints at this time. Relieving factors: none Exacerbating factors: none Associated symptoms: denies other symptoms Related Data Home Medications ?Medication ?Instructions ?Recorded ?Confirmed albuterol sulfate 90 mcg/actuation 2 puff inhalation QID 09/28/22 12/05/23 aerosol inhaler cetirizine 10 mg tablet 10 mg PO DAILY 09/28/22 12/05/23 desonide 0.05 % topical cream 1 appl topical BID 09/28/22 12/05/23 epinephrine 0.3 mg/0.3 mL 0.3 mg IM ONCE PRN 09/28/22 12/05/23 injection, auto-injector omeprazole 20 mg capsule,delayed 20 mg PO DAILY 09/28/22 12/05/23 release sildenafil 100 mg tablet 100 mg PO DAILY PRN 09/28/22 12/05/23 fluticasone propionate 50 1 spray intranasal DAILY PRN 05/15/23 12/05/23 mcg/actuation nasal spray,suspension Previous Rx's ?Medication ?Instructions ?Recorded topiramate 25 mg tablet 25 - 50 mg (1 - 2 x 25 mg) PO 11/04/23 BEDTIME 30 days #60 tabs eletriptan 40 mg tablet 40 mg PO Q2-4H PRN migraine 12/05/23 headache 30 days #14 tabs magnesium oxide 400 mg (241.3 mg 400 mg PO BEDTIME 30 days #30 tabs 12/05/23 magnesium) tablet ubrogepant 100 mg tablet (Ubrelvy) 100 mg PO ONCE PRN migraine 12/05/23 headache 30 days #16 tabs amoxicillin 875 mg-potassium 1 tab PO BID 10 days #20 tabs 01/28/24 clavulanate 125 mg tablet Allergies Allergy/AdvReac Type Severity Reaction Status Date / Time environmental allergies Allergy Unknown Unknown Verified 01/28/24 11:24 No Known Drug Allergies Allergy Unknown Unknown Verified 01/28/24 11:24 shellfish derived Allergy Unknown Hives Verified 01/28/24 11:24 Review of Systems Constitutional: Constitutional: Reports no additional constitutional complaints, Denies chills, Denies fever(s) and Denies night sweats Eyes: Eyes: Reports no additional eye complaints, Denies blurry vision, Denies change in vision, Denies diplopia, Denies eye discharge, Denies loss of vision and Denies eye pain ENT: Denies dizziness Cardiovascular: Cardiovascular: Reports no additional cardiovascular complaints, Denies chest pain, Denies lightheadedness, Denies Loss of Consciousness and Denies dyspnea Respiratory: Respiratory: Reports no additional respiratory complaints and Denies dyspnea Gastrointestinal: Gastrointestinal: Reports no additional gastrointestinal complaints, Denies abdominal pain, Denies melena, Denies hematochezia, Denies change in bowel habits and Denies change in stool character Genitourinary: Genitourinary: Reports no additional male genitourinary complaints, Denies hematuria, Denies oliguria, Denies difficulty urinating, Denies dysuria, Denies urinary frequency, Denies urinary hesitancy, Denies urinary incontinence and Denies urinary urgency Musculoskeletal: Musculoskeletal: Reports no additional musculoskeletal complaints, Denies numbness and Denies tingling Comments: left hand laceration Neurologic: Denies dizziness, Denies loss of vision, Denies numbness and Denies tingling Psychiatric: Psychiatric: Reports no additional psychiatric complaints Endocrine: Endocrine: Reports no additional endocrine complaints Hematologic/Lymphatic: Hematologic/Lymphatic: Reports no additional hematologic/lymphatic complaints Allergic/Immunologic: Allergic/Immunologic: Reports no additional allergic/immunologic complaints PMFSH Past Medical History Attestation statement: The following information was validated with the patient. Source: old records reviewed and nursing notes reviewed Medical History History of alcohol dependence Ganglion cyst of flexor tendon sheath of finger of right hand Syncope and collapse Superior glenoid labrum lesion Pain in left knee Obstructive sleep apnea (adult) (pediatric) Mild intermittent asthma, uncomplicated Migraine without aura, not intractable, without status migrainosus Male erectile dysfunction, unspecified Intervertebral disc disorders with radiculopathy, lumbar region Insomnia Gastro-esophageal reflux disease without esophagitis Ganglion Chronic rhinitis Brief loss of consciousness Alcohol dependence in remission Other congenital malformation of penis Seizure disorder Bronchial asthma Tinnitus Migraine headache Sleep apnea Post traumatic stress disorder Surgical History H/O esophagogastroduodenoscopy History of shoulder surgery History of spinal fusion Social History Social History Alcohol intake: current Alcohol intake frequency: holidays/special occasions only Patient Tobacco Use Status: Never used Tobacco Substance Use Type: Marijuana Advance Directives: No Advance Directives Information Provided: Yes Do you have a plan to hurt others: No Plan Physical Exam ED Vital Signs: Vital Signs - 24 hr 01/28/24 11:22 Temperature 97.9 F Pulse Rate 62 Respiratory Rate 16 Blood Pressure 112/74 Pulse Oximetry 100 Oxygen Delivery Method Room Air BMI result Body Mass Index 25.8 Const General: cooperative, no acute distress, alert and awake Nutritional Appearance: well nourished Orientation/consciousness: patient oriented x3 Limitations: no limitations HENMT Head: Yes normal to inspection and Yes atraumatic Ears: hearing grossly normal bilaterally and external ears normal General nose exam: Normal external nose present, no nasal discharge noted and no epistaxis Face and sinus: Yes normal facial exam, No abrasion and No laceration Mouth: Normal oral and palatal mucosa present, no drooling and no muffled voice Eyes General: appearance normal, both eyes and all related structures Periorbital: periorbital findings normal Eyelids: Yes eyelids normal Conjunctivae: conjunctivae normal Pupils: Equal, round and reactive pupils present EOM: EOMs intact bilaterally Neck Neck: Yes normal visual inspection, Yes full ROM and Yes no lymphadenopathy Chest Chest palpation & inspection: normal inspection of the chest Resp Effort & Inspection: normal respiratory effort and able to speak in complete sentences GI Inspection: Yes normal to inspection Neuro General: patient oriented x3 and moves all extremities Cranial nerves: Yes Equal, round and reactive pupils present Cognition (Neuro): normal cognition Extrem Other: 3 nylon sutures present to the left 2nd MCP joint with minimal surrounding erythema and pain with palpation wound is well approximated General: Yes full ROM and Yes capillary refill normal Psych Appearance: grossly normal Mental Status: mental status grossly normal Affect: normal affect Attitude: cooperative Thought process: Normal thought process present Thought content: Normal thought content present Insight: Good insight present (Psych) Procedures Procedure Narrative Procedure Narrative: 3 sutures removed from the left 2nd MCP, without incident. Patient's PMS was intact prior to and after suture removal. Medical Decision Making Medical Decision Making MDM Narrative: Patient is a 43 year old assigned male at with a history of anxiety, GERD, seizures, and left hand injury presenting to the emergency department today for suture removal. Patient's physical exam was as noted in the physical exam portion of this note. Patient's sutured area appears to have an overlying cellulitis. I explained my physical exam findings to the patient. I answered all questions asked by the patient. Patient's sutures were removed, without incident. Patient's PMS was intact prior to and after suture removal. I stressed the importance of the patient taking his medication as directed (either prescribed or as the over the counter packaging recommends). I stressed the importance of the patient following up with his primary care provider. I stressed the importance of the patient returning to the emergency department immediately if his symptoms were to worsen or if he were to develop any dizziness, shortness of breath, difficulty breathing, chest pain, blurry vision, loss of vision, nausea, vomiting, abdominal pain, fever, chills, back pain, or any other complaints. Patient verbalized agreement and understanding with this treatment plan and discharge. Differential Diagnosis Differential Diagnoses: The differential diagnosis associated with the presentation includes Suture removal Cellulitis Admission/Observation Consideration of admission/observation: Escalation of care including admission/observation considered Patient would have been admitted to the hospital had his clinical presentation warranted hospital admission. Prescription Management I considered prescription management with: Antibiotic (patient prescribed an antibiotic for possible left hand cellulitis) Discharge Plan Discharge Clinical Impression: Visit for suture removal, Cellulitis Patient Disposition: Home, Self-Care Instructions: Cellulitis (DC), Stitches Removal (ED) Additional Instructions: Take your antibiotic as prescribed. Follow up with your primary care provider. Return to the emergency department immediately if your symptoms worsen or if you develop any dizziness, shortness of breath, difficulty breathing, chest pain, blurry vision, loss of vision, nausea, vomiting, abdominal pain, fever, chills, back pain, or any other complaints. Prescriptions: New amoxicillin-pot clavulanate 875-125 mg tablet 1 tab PO BID 10 Days Qty: 20 0RF No Action topiramate 25 mg tablet 25 - 50 mg PO BEDTIME 30 Days Qty: 60 3RF albuterol sulfate 90 mcg/actuation HFA aerosol inhaler 2 puff inhalation QID cetirizine 10 mg tablet 10 mg PO DAILY epinephrine 0.3 mg/0.3 mL auto-injector 0.3 mg IM ONCE PRN omeprazole 20 mg capsule,delayed release(DR/EC) 20 mg PO DAILY sildenafil 100 mg tablet 100 mg PO DAILY PRN Rx Instructions: administer 30 minutes to 4 hours before activity desonide 0.05 % cream 1 appl topical BID fluticasone propionate 50 mcg/actuation spray,suspension 1 spray intranasal DAILY PRN Rx Instructions: administer into each nostril eletriptan 40 mg tablet 40 mg PO Q2-4H PRN (Reason: migraine headache) 30 Days Qty: 14 6RF Rx Instructions: do not exceed 2 doses per 24 hrs Ubrelvy 100 mg tablet 100 mg PO ONCE PRN (Reason: migraine headache) 30 Days Qty: 16 3RF Rx Instructions: take at onset of migraine, may repeat in 2hrs (may take w/ Ibuprofen or Ubrelvy) magnesium oxide 400 mg (241.3 mg magnesium) tablet 400 mg PO BEDTIME 30 Days Qty: 30 6RF Rx Instructions: may hold for loose stools Referrals: Rukhsana Adkins MD [Primary Care Provider] - Print Language: Icelandic
[2024-01-28 12:16] VITALS: BP 112/74; PULSE 62; RESP 16; TEMP 36.6; O2SAT 100
== END 2024-01-28 12:16 | disposition home or self-care (01) ==
PROVIDERS: Emergency Provider Emergency Medicine; PCP Family Medicine
DX: L03.114 Cellulitis of left upper limb (principal); Z48.02 Encounter for removal of sutures
CPT/HCPCS: 99282; 99283

== ENCOUNTER 2024-02-26 18:32 | Outpatient (REF) | payer OTHER, SELFPAY ==
--- NOTE | ~2024-02-26 | MR_ITS ---
EXAMINATION: MR UPPER EXTREMITY WITHOUT CONTRAST, LEFT CLINICAL INFORMATION: Neuropathy. Prior 2nd finger laceration. COMPARISON: Radiographs 01/19/2024 TECHNIQUE: MRI of the left hand was performed using routine sequences on a high-field scanner. FINDINGS: There is soft tissue edema at the dorsal/radial aspect of the 2nd MCP joint which may be related to the previous laceration. No focal fluid collection or obvious foreign body. No joint effusion or acute osseous abnormality. Collateral ligaments, flexor and extensor tendons appear intact. MR/MR hand LT wo con IMPRESSION: Soft tissue edema at the dorsal/radial aspect of the 2nd MCP joint which may be related to the previous laceration. No focal fluid collection or obvious foreign body. Electronically signed by: Bernabe Guzman MD 03/11/2024 12:43 PM [facility]
== END 2024-02-26 18:33 | disposition home or self-care (01) ==
LOC: HO.MRI 18:32
PROVIDERS: PCP Family Medicine; Visit Provider Nurse Practitioner Family
DX: G60.0 Hereditary motor and sensory neuropathy (principal)
CPT/HCPCS: 73218

== ENCOUNTER 2024-03-17 14:50 | Outpatient (AMB) | payer OTHER, SELFPAY ==
--- NOTE | 2024-03-17 15:01 | MHC.OFFVIS ---
Vital Signs 03/17/24 15:01 Height 5 ft 7 in Intake Visit Reasons: First botox Intake Note: Patiednt presents for botox Allergies environmental allergies Allergy (Unknown, Verified 03/17/24 15:04) Unknown No Known Drug Allergies Allergy (Unknown, Verified 03/17/24 15:04) Unknown shellfish derived Allergy (Unknown, Verified 03/17/24 15:04) Hives Medication List - Last Reconciled 03/17/24 by Elyse Macario MD albuterol sulfate 90 mcg/actuation 2 puffs inhalation QID amoxicillin-pot clavulanate 875-125 mg 1 tab PO BID 10 days cetirizine 10 mg PO DAILY desonide 0.05% 1 appl topical BID eletriptan 40 mg PO Q2-4H PRN 30 days epinephrine 0.3 mg IM ONCE PRN fluticasone propionate 50 mcg/actuation 1 spray intranasal DAILY PRN magnesium oxide 400 mg PO BEDTIME 30 days omeprazole 20 mg PO DAILY onabotulinumtoxinA (Botox) 200 units IM ONCE 12 weeks sildenafil 100 mg PO DAILY PRN topiramate 25 - 50 mg (1 - 2 x 25 mg) PO BEDTIME 30 days ubrogepant (Ubrelvy) 100 mg PO ONCE PRN 30 days HPI Comments Details: ? 43y/o female comes for treatment of migraines with botox. ??? Most frequent reported adverse reactions following injection of botox for chronic migraine include neck pain (9%), headache(5%), eyelid ptosis(4%), migraine(4%), muscular weakness(4%), musculuskeletal stiffness(4%), bronchitis(3%), injection site pain (3%), musculoskeletal pain(3%), myalgia(3%), facial paresis(2%), HTN(2%) and muscle spasms(2%) were discussed in detail. ??? Botulinum toxin typeA 200units Lot no [id number] expiration Dec 2025 was diluted with 4 cc of normal saline . ??? Muscles injected- ??? Frontalis 4 sites ??? Procerus 1 site ??? Special Effects Specialist- 2 sites ??? Temporalis- 8 sites ??? Occipitalis- 6 sites ??? Cervical paraspinals- 4 sites ??? Trapezius- 6 sites- 10 units each ??? 5 units each in 31 site ??? Total use- 185units ??? Discarded-15units [facility] Medical History History of alcohol dependence Ganglion cyst of flexor tendon sheath of finger of right hand Syncope and collapse Superior glenoid labrum lesion Pain in left knee Obstructive sleep apnea (adult) (pediatric) Mild intermittent asthma, uncomplicated Migraine without aura, not intractable, without status migrainosus Male erectile dysfunction, unspecified Intervertebral disc disorders with radiculopathy, lumbar region Insomnia Gastro-esophageal reflux disease without esophagitis Ganglion Chronic rhinitis Brief loss of consciousness Alcohol dependence in remission Other congenital malformation of penis Seizure disorder Bronchial asthma Tinnitus Migraine headache Sleep apnea Post traumatic stress disorder Surgical History H/O esophagogastroduodenoscopy History of shoulder surgery History of spinal fusion Social History Alcohol intake: current Alcohol intake frequency: holidays/special occasions only Patient Tobacco Use Status: Never used Tobacco Substance Use Type: Marijuana Physical Exam Const General: cooperative and no acute distress Orientation/consciousness: patient oriented x3 Neuro Other: Bilateral mild posterior cervical tightness Cervical ROM: full w/ tightness on cervical extension. Left Spurling: normal Right Spurling: normal. General: patient oriented x3 and deep tendon reflexes 2+ bilaterally Cognition (Neuro): normal cognition Office Procedures Botulinum toxin Injection 56274 - Migraine Procedure code (CPT) selection complete Office Meds onabotulinumtoxinA 200 unit solution for injection Performing Provider: lEyse Macario MD Performing Location[place] [facility] Administered by: Elyse Macario MD on 03/17/24 15:20 Dose Route Admin Location Dispensed Lot Number Expiration Date [facility] Enterprise Engineer 185 unit subcut 200 units [id number] ALLERGAN/BOTOX Comments: see HPI Assessment & Plan Assessment & Plan (1) Chronic migraine without aura: Code(s): G43.709 - Chronic migraine without aura, not intractable, without status migrainosus Category: Medical Qualifiers: Status migrainosus presence: without status migrainosus Intractability: intractable Qualified Code(s): G43.719 - Chronic migraine without aura, intractable, without status migrainosus Plan Patient tolerated the procedure well He will call with any side effects Orders: Orders AMB Botulinum toxin Injection Today G43.719 - Chronic migraine without aura, intractable, without status migrainosus Medications: New onabotulinumtoxinA 200 units subcut ONCE 1 ea 0RF migraine G43.719 - Chronic migraine without aura, intractable, without status migrainosus Coding Level of Care Code Est Pt Level 1 (37334) Diagnoses Intractable chronic migraine without aura and without status migrainosus G43.719 Status migrainosus presence: without status migrainosus Intractability: intractable CPT Codes Botox Injection - Botox 3: 31053 - Migraine ([id number])
== END 2024-03-17 15:20 | disposition home or self-care (01) ==
PROVIDERS: PCP Family Medicine; Visit Provider Psychiatry & Neurology Neurology
DX: G43.719 Chronic migraine without aura, intractable, without status migrainosus (principal)
CPT/HCPCS: 64615

== ENCOUNTER → 2024-03-17 14:50 | Outpatient (BNVA) | payer OTHER, SELFPAY | PROVIDERS: PCP Family Medicine; Visit Provider Psychiatry & Neurology Neurology | DX: G43.719 Chronic migraine without aura, intractable, without status migrainosus (principal) | CPT/HCPCS: 64615; 99211; J0585 ==

== ENCOUNTER 2024-04-22 18:44 | Emergency (ER) | payer OTHER, SELFPAY ==
--- NOTE | 2024-04-22 | ECG_ITS ---
Test Reason : TACHYCARDIA Blood Pressure : */* mmHG Vent. Rate : 100 BPM Atrial Rate : 100 BPM P-R Int : 126 ms QRS Dur : 76 ms QT Int : 340 ms P-R-T Axes : 76 -34 -21 degrees QTcB Int : 438 ms Normal sinus rhythm Left axis deviation Nonspecific ST and T wave abnormality Abnormal ECG When compared with ECG of 24-Jan-2016 12:19, Vent. rate has increased by 39 bpm QRS axis Shifted left Nonspecific T wave abnormality now evident in Inferior leads Nonspecific T wave abnormality, worse in Lateral leads Referred By: Harry Castro Electronically Signed By: Henry West
[2024-04-22 18:49] VITALS: BP 101/59; PULSE 120; O2SAT 98
[2024-04-22 18:58] VITALS: BP 104/68; PULSE 102; RESP 22; TEMP 38.1; O2SAT 100; BMI 23.7
[2024-04-22 19:19] LABS: MANUAL DIFF FLAG NO
[2024-04-22 19:21] LABS: Basophils Percent Auto 0.2 % (0-2); Eosinophils Absolute Auto 0.1 X10*3/uL (0.0-0.4); Eosinophils Percent Auto 0.6 % (0-4); Hematocrit 42.2 % (42.0-52.0); Hemoglobin 14.8 g/dl (14.0-18.0); Imm Gran Abs Auto 0.05 X10*3/uL (0.00-0.03); Imm Gran Pct Auto 0.4 % (0.0-0.4); Lymphocytes Absolute Auto 0.9 X10*3/uL (1.2-4.9); Lymphocytes Percent Auto 6.9 % (20-40); Mean Corpuscular HGB Conc 35.1 g/dl (31.0-36.0); Mean Corpuscular Hemoglobin 29.8 pg (27.0-33.0); Mean Corpuscular Volume 84.9 fL (80.0-98.0); Mean Platelet Volume 8.8 fL (9.4-12.4); Monocytes Absolute Auto 0.4 X10*3/uL (0.1-1.2); Monocytes Percent Auto 3.5 % (2-11); Neutrophils Absolute Auto 10.8 x10*3/uL (2.0-8.3); Neutrophils Percent Auto 88.4 % (45-73); Platelet Count 288 X10*3/uL (160-400); Red Blood Count 4.97 X10*6/uL (4.60-5.80); White Blood Count 12.3 X10*3/uL (4.8-10.8)
--- NOTE | 2024-04-22 19:24 | ED.ABDPAIN ---
HPI - Abdominal Pain General Chief Complaint: Nausea/Vomiting/Diarrhea Stated Complaint: diarrhea, vomit, hx back/spinal injury Time Seen by Provider: 04/22/24 19:12 Source: patient and EMS Mode of arrival: EMS Limitations: no limitations History of Present Illness ED Provider: Nola Kohler NP HPI narrative: Patient is a 43-year-old male who presents emergency department via EMS for evaluation. Patient's is at bedside. Reports that herself as well as her daughter have recently been ill with norovirus/stomach bug. He began with symptoms at approximately 11:00 today with multiple bouts of nonbloody bilious/watery emesis and multiple bouts of watery diarrhea. Denies hematochezia or melena. Reports he was vomiting quite forcefully and began to endorse numbness to his bilateral arms and feet. states that he was not able to move and was endorsing severe pain to his neck radiating down his back. States he has a history of known disc herniations in the cervical spine as well as fusions in the lumbar spine. He is able to move all extremities at this time does admit to continued sporadic intermittent areas of numbness throughout the body. Nausea has improved after receiving Zofran pre-hospital. Continues to endorse abdominal pain primarily to the epigastric region. Denies fevers or chills. No recent genitourinary symptoms. No recent fall or injury. Related Data Home Medications ?Medication ?Instructions ?Recorded ?Confirmed albuterol sulfate 90 mcg/actuation 2 puff inhalation QID 09/28/22 03/17/24 aerosol inhaler cetirizine 10 mg tablet 10 mg PO DAILY 09/28/22 03/17/24 desonide 0.05 % topical cream 1 appl topical BID 09/28/22 03/17/24 epinephrine 0.3 mg/0.3 mL 0.3 mg IM ONCE PRN 09/28/22 03/17/24 injection, auto-injector omeprazole 20 mg capsule,delayed 20 mg PO DAILY 09/28/22 03/17/24 release sildenafil 100 mg tablet 100 mg PO DAILY PRN 09/28/22 03/17/24 fluticasone propionate 50 1 spray intranasal DAILY PRN 05/15/23 03/17/24 mcg/actuation nasal spray,suspension Previous Rx's ?Medication ?Instructions ?Recorded topiramate 25 mg tablet 25 - 50 mg (1 - 2 x 25 mg) PO 11/04/23 BEDTIME 30 days #60 tabs eletriptan 40 mg tablet 40 mg PO Q2-4H PRN migraine 12/05/23 headache 30 days #14 tabs magnesium oxide 400 mg (241.3 mg 400 mg PO BEDTIME 30 days #30 tabs 12/05/23 magnesium) tablet ubrogepant 100 mg tablet (Ubrelvy) 100 mg PO ONCE PRN migraine 12/05/23 headache 30 days #16 tabs amoxicillin 875 mg-potassium 1 tab PO BID 10 days #20 tabs 01/28/24 clavulanate 125 mg tablet onabotulinumtoxinA 200 unit 200 unit IM ONCE 12 weeks #1 ea 02/17/24 solution for injection (Botox) ondansetron 4 mg disintegrating 4 mg PO Q8H PRN nausea and 04/22/24 tablet vomiting #10 tabs Allergies Allergy/AdvReac Type Severity Reaction Status Date / Time environmental allergies Allergy Unknown Unknown Verified 04/22/24 19:01 No Known Drug Allergies Allergy Unknown Unknown Verified 04/22/24 19:01 shellfish derived Allergy Unknown Hives Verified 04/22/24 19:01 Review of Systems Review of Systems Yes all other systems are reviewed and are negative PMFSH Past Medical History Attestation statement: The following information was validated with the patient. Source: old records reviewed Medical History History of alcohol dependence Ganglion cyst of flexor tendon sheath of finger of right hand Syncope and collapse Superior glenoid labrum lesion Pain in left knee Obstructive sleep apnea (adult) (pediatric) Mild intermittent asthma, uncomplicated Migraine without aura, not intractable, without status migrainosus Male erectile dysfunction, unspecified Intervertebral disc disorders with radiculopathy, lumbar region Insomnia Gastro-esophageal reflux disease without esophagitis Ganglion Chronic rhinitis Brief loss of consciousness Alcohol dependence in remission Other congenital malformation of penis Seizure disorder Bronchial asthma Tinnitus Migraine headache Sleep apnea Post traumatic stress disorder Surgical History H/O esophagogastroduodenoscopy History of shoulder surgery History of spinal fusion Social History Social History Alcohol intake: current Alcohol intake frequency: holidays/special occasions only Patient Tobacco Use Status: Never used Tobacco Substance Use Type: Marijuana Advance Directives: No Advance Directives Information Provided: No Physical Exam ED Vital Signs: Vital Signs - 24 hr 04/22/24 18:58 04/22/24 20:21 04/22/24 22:03 Temperature 100.5 F H 98.1 F Pulse Rate 102 H 91 74 Respiratory Rate 22 H 18 18 Blood Pressure 104/68 116/65 97/55 L Pulse Oximetry 100 99 99 Oxygen Delivery Method Room Air Room Air Room Air BMI result Body Mass Index 23.7 Appearance: Alert.?Oriented to person, place and time. Appears quite anxious Neck: Normal inspection.? Neck supple.?? CVS: Heart sounds normal. Tachycardia. Pulses normal.?? Respiratory: Mildly tachypneic? Lung sounds clear to auscultation bilaterally?? Abdomen: Soft with epigastric tenderness upon palpation No rebound tenderness at McBurney's point. Negative psoas sign. Negative Rovsing sign. Negative Horne sign. No CVAT. Normoactive bowel sounds. No pulsatile mass.?? Skin: Skin warm and dry.? Normal skin color.? Extremities: No lower extremity edema.? Neuro: Moves all extremities spontaneously. Sensation intact bilaterally. Course Reevaluation(s) Reevaluation #1: Patient reports significant improvement in symptoms after being medicated. No further episodes of vomiting. Tolerating fluids without difficulty. Ambulatory with a steady gait. Fever has resolved. Suspect viral gastroenteritis for which we discussed conservative treatment prescription for Zofran was sent to pharmacy. Discussed strict return precautions. All questions answered. Stable for discharge Time: 22:08 Medical Decision Making Medical Decision Making MDM Narrative: Patient is a 43-year-old male past medical history of alcohol use disorder, vasovagal syncope, CLARE, asthma, migraine, lumbar radiculopathy, GERD, seizure disorder, PTSD, lumbar spinal fusion, MRI of the cervical spine in April of 2023 revealing small disc protrusion at C4-C5 with mild central stenosis, moderate right foraminal narrowing, and disc bulge at C5-C6 with mild stenosis and moderate right foraminal narrowing who presents emergency department for evaluation of onset abdominal pain vomiting diarrhea numbness and tingling throughout the body onset this morning after exposure to others with viral gastrointestinal illness as per HPI. He arrives appearing quite anxious, is mildly tachycardic, mild tachypneic with lung sounds clear to the apices bilaterally, febrile 100.5, meeting sepsis criteria. Sepsis alert was called, not hypotensive at this time. I suspect this is likely a viral gastrointestinal illness however patient receive sepsis fluid bolus in addition to Zosyn to cover bacterial intra-abdominal pathology. He has epigastric tenderness upon palpation, the abdomen is soft throughout, though this may be resultant of vomiting. Is full range of motion to bilateral upper and lower extremities. No nuchal rigidity. No associated chest pain shortness of breath or URI symptoms to suggest pneumonia, no clinical evidence of DVT or personal history of VTE/malignancy to suggest pulmonary embolism. No high-risk past medical history to suggest myocardial infarction and is without chest pain, less likely AAA, aortic dissection. No notable right upper quadrant tenderness upon palpation, negative Horne sign, lower suspicion of acute cholecystitis, choledocholithiasis, no jaundice to suggest acute cholangitis, may possibly be biliary colic secondary to cholelithiasis. Denies recent exacerbation of acid reflux, no tenderness upon palpation over the epigastrium or left upper quadrant to suggest gastritis, no recent hematemesis history less likely to suggest PUD. Denies recent alcohol consumption, history of diabetes, lower suspicion acute pancreatitis. No rebound tenderness at McBurney's point, rigidity, guarding to suggest acute appendicitis. No tenderness of the left lower quadrant nor associated constipation, hematochezia or melena to suggest diverticulitis or GI bleed. No appreciable hernia to suggest strangulation/incarceration. Lower suspicion for bowel obstruction. No distention or rigidity to suggest GI perforation. No associated genitourinary symptoms to suggest UTI/pyelonephritis, renal colic, hydronephrosis. Differential Diagnosis Differential Diagnoses: The differential diagnosis associated with the presentation includes (See narrative above) Admission/Observation Consideration of admission/observation: Escalation of care including admission/observation considered (See narrative above ) Lab Data MDM Lab Attestation statement: I reviewed the patient's lab results. 04/22/24 19:12 04/22/24 19:12 Labs: Lab Results 04/22/24 04/22/24 Range/Units 19:12 21:19 WBC 12.3 H (4.8-10.8) X10*3/uL RBC 4.97 (4.60-5.80) X10*6/uL Hgb 14.8 (14.0-18.0) g/dl Hct 42.2 (42.0-52.0) % MCV 84.9 (80.0-98.0) fL MCH 29.8 (27.0-33.0) pg MCHC 35.1 (31.0-36.0) g/dl RDW 13.0 (11.0-16.0) % Plt Count 288 (160-400) X10*3/uL MPV 8.8 L (9.4-12.4) fL Immature Gran % (Auto) 0.4 (0.0-0.4) % Neut % (Auto) 88.4 H (45-73) % Lymph % (Auto) 6.9 L (20-40) % [place] % (Auto) 3.5 (2-11) % Eos % (Auto) 0.6 (0-4) % Baso % (Auto) 0.2 (0-2) % Lymph # (Auto) 0.9 L (1.2-4.9) X10*3/uL [place] # (Auto) 0.4 (0.1-1.2) X10*3/uL Eos # (Auto) 0.1 (0.0-0.4) X10*3/uL Baso # (Auto) 0.0 (0.0-0.2) X10*3/uL Abs Immat Gran (auto) 0.05 H (0.00-0.03) X10*3/uL Absolute Neuts (auto) 10.8 H (2.0-8.3) x10*3/uL Absolute Nucleated RBC 0.000 (0.0-0.012) X10*3/uL Nucleated RBC % (auto) 0.0 (0.0-0.2) /100WBC Sodium 139 (135-145) mmol/L Potassium 4.3 (3.3-5.1) mmol/L Chloride 109 H (96-108) mmol/L Carbon Dioxide 19 L (22-29) mmol/L Anion Gap 15 (12-20) BUN 20 H (9-16) mg/dL Creatinine 1.26 (0.5-1.4) mg/dL Estim Creat Clear Calc 72.1 Estimated GFR > 60 Random Glucose 103 (60-115) mg/dL Lactic Acid 4.8 H* (0.5-2.0) mmol/L Lactic Acid F/U @ 2Hr 1.3 (0.5-2.0) mmol/L Calcium 9.0 (8.4-10.2) mg/dL Magnesium 1.5 L (1.6-2.6) mg/dL Total Bilirubin 1.1 H (0.0-1.0) mg/dL Direct Bilirubin 0.3 (0.0-0.5) mg/dL AST 17 (5-37) U/L ALT 7 (0-40) U/L Alkaline Phosphatase 74 (39-117) U/L Total Protein 7.8 (6.5-8.0) g/dL Albumin 4.4 (3.5-5.0) g/dL Lipase 18 (8-78) U/L Ethyl Alcohol < 10 mg/dL Influenza Type A (PCR) NEGATIVE (Negative) Influenza Type B (PCR) NEGATIVE (Negative) RSV RNA Qual (PCR) NEGATIVE (Negative) SARS-CoV-2 RNA (RT-PCR) NEGATIVE (Negative) Independent Historian Clinical information obtained from an independent historian. History obtained from or confirmed by: Spouse and EMS External Record Review External record reviewed: Outpatient record Chronic Conditions Patient?s care impacted by: Other (See narrative above) Medications Administered Discontinued Medications Generic Name Dose Route Start Last Admin Trade Name Freq PRN Reason Stop Dose Admin Acetaminophen 975 mg 04/22/24 19:34 04/22/24 21:44 Acetaminophen 325 Mg Tablet PO 04/22/24 19:35 975 mg ONCE ONE Administration Sodium Chloride 2,061 mls @ 2,061 mls/hr 04/22/24 19:14 04/22/24 20:32 Ns 30 ml/kg infuse over 1 hr (2061 ml) 04/22/24 20:13 Infused IV Infusion .Q1H STA Piperacillin Sod/Tazobactam 100 mls @ 200 mls/hr 04/22/24 19:30 04/22/24 20:09 Sod 4.5 gm/ Sodium Chloride IV 04/22/24 19:59 Infused ONCE ONE Infusion Ketorolac Tromethamine 15 mg 04/22/24 19:28 04/22/24 19:39 Ketorolac Tromethamine 15 Mg/Ml Vial IVPUSH 04/22/24 19:29 15 mg ONCE ONE Administration Ondansetron HCl 4 mg 04/22/24 19:14 04/22/24 19:39 Ondansetron Hcl 4 Mg/2 Ml Vial IVPUSH 04/22/24 19:15 4 mg ONCE ONE Administration Discharge Plan Discharge Clinical Impression: Gastroenteritis Patient Disposition: Home, Self-Care Instructions: Gastroenteritis (ED) Additional Instructions: Be sure that you are staying well hydrated over the next few days. You may mixed half and half a glass of water with an electrolyte drinks such as Pedialyte/Gatorade/Powerade. Clear liquids for the next 24 hours followed by a bland diet.Introduce a bland diet including crackers, bananas, rice, soup, toast, and boiled vegetables. This may progress to plain baked or boiled chicken or turkey. Avoid dairy products or foods high in fat or grease. Prescription for Zofran has been sent to your pharmacy to use as needed for nausea/vomiting every 8 hours. Return with any new or worsening symptoms or concerns. Follow-up with your primary care doctor as needed. Prescriptions: New ondansetron 4 mg tablet,disintegrating 4 mg PO Q8H PRN (Reason: nausea and vomiting) Qty: 10 0RF No Action topiramate 25 mg tablet 25 - 50 mg PO BEDTIME 30 Days Qty: 60 3RF Botox 200 unit recon soln 200 unit IM ONCE 84 Days Qty: 1 3RF Rx Instructions: inject 155 units IM across forehead, scalp, and neck amoxicillin-pot clavulanate 875-125 mg tablet 1 tab PO BID 10 Days Qty: 20 0RF albuterol sulfate 90 mcg/actuation HFA aerosol inhaler 2 puff inhalation QID cetirizine 10 mg tablet 10 mg PO DAILY epinephrine 0.3 mg/0.3 mL auto-injector 0.3 mg IM ONCE PRN omeprazole 20 mg capsule,delayed release(DR/EC) 20 mg PO DAILY sildenafil 100 mg tablet 100 mg PO DAILY PRN Rx Instructions: administer 30 minutes to 4 hours before activity desonide 0.05 % cream 1 appl topical BID fluticasone propionate 50 mcg/actuation spray,suspension 1 spray intranasal DAILY PRN Rx Instructions: administer into each nostril eletriptan 40 mg tablet 40 mg PO Q2-4H PRN (Reason: migraine headache) 30 Days Qty: 14 6RF Rx Instructions: do not exceed 2 doses per 24 hrs Ubrelvy 100 mg tablet 100 mg PO ONCE PRN (Reason: migraine headache) 30 Days Qty: 16 3RF Rx Instructions: take at onset of migraine, may repeat in 2hrs (may take w/ Ibuprofen or Ubrelvy) magnesium oxide 400 mg (241.3 mg magnesium) tablet 400 mg PO BEDTIME 30 Days Qty: 30 6RF Rx Instructions: may hold for loose stools Referrals: Physician,Unknown J [Primary Care Provider] - Print Language: Armenian
[2024-04-22] MEDS: SODIUM CHLORIDE 2061 ML IV (19:32)
[2024-04-22 19:37] LABS: Alanine Aminotransferase 7 U/L (0-40); Albumin Level 4.4 g/dL (3.5-5.0); Alkaline Phosphatase 74 U/L (39-117); Anion Gap 15 (12-20); Aspartate Amino Transferase 17 U/L (5-37); Bilirubin Direct 0.3 mg/dL (0.0-0.5); Bilirubin Total 1.1 mg/dL (0.0-1.0); Blood Urea Nitrogen 20 mg/dL (9-16); Carbon Dioxide 19 mmol/L (22-29); Chloride 109 mmol/L (96-108); Creatinine Clr Calc Pharmacy 72.1; Estimated Glomerular Filt Rate > 60; Glucose Random 103 mg/dL (60-115); Lipase 18 U/L (8-78); Magnesium 1.5 mg/dL (1.6-2.6); Potassium 4.3 mmol/L (3.3-5.1); Sodium 139 mmol/L (135-145); Total Protein 7.8 g/dL (6.5-8.0)
[2024-04-22] MEDS: Ketorolac Tromethamine 15 MG/ML VIAL IVPUSH (19:39)
[2024-04-22] MEDS: Piperacillin Sodium/Tazobactam 4.5 GM in 0.9 % Sodium Chloride 100 ML IV (19:39)
[2024-04-22] MEDS: ondansetron HCL 4 MG/2 ML VIAL IVPUSH (19:39)
[2024-04-22 19:44] LABS: Lactic Acid 4.8 mmol/L (0.5-2.0)
[2024-04-22 19:59] LABS: Influenza A PCR NEGATIVE (Negative); Influenza B PCR NEGATIVE (Negative); Resp Syncy Virus RNA Qual PCR NEGATIVE (Negative); SARS COV2 PCR INHOUSE NEGATIVE (Negative)
[2024-04-22 20:02] LABS: Ethanol < 10 mg/dL
[2024-04-22 20:21] VITALS: BP 116/65; PULSE 91; RESP 18; O2SAT 99
[2024-04-22 21:16] LABS: Reflex Lactate? Lactic Acid Added
[2024-04-22 21:43] LABS: ~Lactic Acid-LAB USE ONLY 1.3 mmol/L (0.5-2.0)
[2024-04-22] MEDS: Acetaminophen 325 MG TABLET 975 MG PO (21:44)
[2024-04-22 22:03] VITALS: BP 97/55; PULSE 74; RESP 18; TEMP 36.7; O2SAT 99
--- NOTE | 2024-04-22 22:05 | PC.NURSE ---
Patient noted to have removed the BP cuff from his own arm. Smiling, calm, cooperative. States that he feels much better than when he came into the ED. at bedside. Preparing for discharge home.
[2024-04-22 22:53] VITALS: BP 97/55; PULSE 74; RESP 18; TEMP 36.7; O2SAT 99
== END 2024-04-22 22:54 | disposition home or self-care (01) ==
PROVIDERS: Nurse Practitioner Family; Emergency Provider Student in an Organized Health Care Education/Training Program
DX: K52.9 Noninfective gastroenteritis and colitis, unspecified (principal); R11.2 Nausea with vomiting, unspecified; R00.0 Tachycardia, unspecified; R10.13 Epigastric pain; J45.909 Unspecified asthma, uncomplicated; F10.21 Alcohol dependence, in remission; Y90.0 Blood alcohol level of less than 20 mg/100 ml; Z03.818 Encounter for observation for suspected exposure to other biological agents ruled out; Z79.899 Other long term (current) drug therapy
CPT/HCPCS: 0241U; 36415; 80053; 80307; 82248; 83605; 83690; 83735; 85025; 87040; 93005; 96361; 96374; 96375; 99284; J1885; J2405; J2543

== ENCOUNTER → 2024-04-22 18:58 | Outpatient (BNV) | payer OTHER, SELFPAY | PROVIDERS: Emergency Provider Student in an Organized Health Care Education/Training Program; Visit Provider Internal Medicine Cardiovascular Disease | DX: R94.31 Abnormal electrocardiogram [ECG] [EKG] (principal) | CPT/HCPCS: 93010 ==

== ENCOUNTER 2024-06-11 09:13 | Outpatient (AMB) | payer OTHER, SELFPAY ==
[2024-06-11 09:32] VITALS: BP 112/70; PULSE 81; O2SAT 97
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
--- OUTSIDE RECORDS SUMMARY | 2024-06-11 10:11 | XMS_ITS | Clinical Summary ---
Author Organization [employer] Address [address] [place] [address] Care Team Providers Care Clinical Specialty Rep Name Role Phone Demarcus Conrad MD Primary Care Provider [phone] Allergies Active Allergy Reactions Criticality Noted Date Comments Shellfish-Derived Products Anaphylaxis High 04/17/2014 Carries epi pen - Will bring Medications Medication Sig Dispensed Refills Start Date End Date Status ALBUTEROL IN Inhale into the lungs continuous prn. 0 Active cetirizine (ZYRTEC) 10 MG tablet Take 10 mg by mouth daily. 0 Active methocarbamol (ROBAXIN) 750 MG tablet Take 1 tablet (750 mg total) by mouth 4 (four) times a day as needed (spasm). 20 tablet 0 09/11/2014 Active aspirin EC 325 MG tablet Take 1 tablet (325 mg total) by mouth daily. 30 tablet 0 09/11/2014 Active docusate sodium (COLACE) 100 MG capsule Take 1 capsule (100 mg total) by mouth 2 (two) times a day. 10 capsule 0 09/11/2014 Active oxyCODONE (ROXICODONE) 5 MG immediate release tablet Take 1-2 tablets (5-10 mg total) by mouth every 4 (four) hours as needed for pain. Take 1 tab for mild pain, 2 tabs for moderate to severe pain. 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 Peroneal tendon injury 04/20/2014 Social History Tobacco Use Types Packs/Day Years Used Date Smoking Tobacco: Never Alcohol Use Standard Drinks/Week Comments No 0 (1 standard drink = 0.6 oz pur e alcohol) Sex and Gender Information Value Date Recorded Sex Assigned at Not on file Gender Identity Not on file Sexual Orientation Not on file Last Filed Vital Signs Vital Sign Reading Time Taken Comments Blood Pressure 112/71 02/08/2015 12:17 PM EST Pulse 67 02/08/2015 12:17 PM EST Temperature 36.2 ??C (97.2 ??F) 02/08/2015 12:[address] Respiratory Rate 16 09/11/2014 7:21 AM EDT Oxygen Saturation 99% 09/11/2014 7:21 AM EDT Inhaled Oxygen Concentration - - Weight 65.8 kg (145 lb) 09/09/2014 1:36 PM EDT Height 170.2 cm (5' 7 ) 09/09/2014 1:36 PM EDT Body Mass Index 22.71 09/09/2014 1:36 PM EDT Plan of Treatment Health Maintenance Due Date Last Done Comments Hepatitis B Vaccines (1 of 3 - 3-dose series) 1982 Hepatitis C Screening 1982 COVID-19 Vaccine (#1) 06/24/1983 Depression Screening 1994 Preventative Health Evaluation 2000 DTap / Tdap / Td (1 - Tdap) 2001 Influenza Vaccine (#1) 2023 Pneumococcal Vaccine Aged Out No long er eligible based on patient's age to complete this topic RSV Ped < 20 months Aged Out No longe r eligible based on patient's age to complete this topic Medical Devices Implanted Type Area Type Bar And Segment Assembler Device Identifier Shelf Expiration Date Model / Serial / Lot Colt Gii Quickanchor Plus Orthocord 2 Cp-2 Arthro Nickel - [id number] - [id number] Implanted:Qty: 2 on 04/20/2014 by Keshia Diaz MD at [facility] Right: Ankle [employer] 12/19/2016 [id number] / / [id number] Screw Lcp 20mm 2.7mm T8 Stardrive Recess Selftap Locking - [id number] - [id number] Implanted:Qty: 1 on 09/10/2014 by Carlos Kuo MD at [facility] Right: Clavicle [employer] 202.220 / / Screw Dcp Lc-Dcp 20mm 3.5mm Selftap Hexagonal Recess - [id number] - [id number] Implanted:Qty: 1 on 09/10/2014 by Carlos Kuo MD at [facility] Right: Clavicle [employer] 204.820 / / Plate Bone 135mm 3.5mm R Superior Clavicle 8h Nonsterile - [id number] - [id number] Implanted:Qty: 1 on 09/10/2014 by Carlos Kuo MD at [facility] Right: Clavicle [employer] 02.112.02 0 / / Screw Dcp 18mm 2.7mm Selftap Stainless Steel Bone Cortical - [id number] - [id number] Implanted:Qty: 1 on 09/10/2014 at [facility] Right: Clavicle [employer] 202.818 / / Description:1 screw explante d Screw Dcp Lc-Dcp 14mm 3.5mm Selftap Hexagonal Recess - [id number] - [id number] Implanted:Qty: 1 on 09/10/2014 by Carlos Kuo MD at [facility] Right: Clavicle [employer] 204.814 / / Screw Dcp Lc-Dcp 16mm 3.5mm Selftap Hexagonal Recess - [id number] - [id number] Implanted:Qty: 1 on 09/10/2014 by Carlos Kuo MD at [facility] Right: Clavicle [employer] 204.816 / / Screw Dcp Lc-Dcp 18mm 3.5mm Selftap Hexagonal Recess - [id number] - [id number] Implanted:Qty: 2 on 09/10/2014 by Carlos Kuo MD at [facility] Right: Clavicle [employer] 204.818 / / Screw Lcp 16mm 2.7mm 2.1mm T8 Stardrive Recess Selftap - [id number] - [id number] Implanted:Qty: 1 on 09/10/2014 by Carlos Kuo MD at [facility] Right: Clavicle [employer] 202.216 / / Screw Lcp 18mm 2.7mm T8 Stardrive Recess Selftap Locking - [id number] - [id number] Implanted:Qty: 2 on 09/10/2014 by Carlos Kuo MD at [facility] Right: Clavicle [employer] 202.218 / / Explanted Type Area Type Bar And Segment Assembler Device Identifier Shelf Expiration Date Model / Serial / Lot Screw Dcp Lc-Dcp 24mm 3.5mm Selftap [facility] - [id number] - [id number] Implanted:Qty: 1 Explanted:Qty: 1 on 09/10/2014 at [facility] Right: Clavicle [employer] 204.824 / / Description:explanted Care Teams Clinical Specialty Rep Relationship Specialty Start Date End Date Demarcus Conrad MD [address] [address] PCP - General 10/28/14
--- OUTSIDE RECORDS SUMMARY | 2024-06-11 10:11 | XMS_ITS | Encounter Summary ---
Author Organization [employer] Address [address] [place] [address] Care Team Providers Care Animal Anatomist Name Role Phone Allegra Bush MD Primary Care Provider Encounter Details Date Type Department Care Team ([facility] st Contact Info) Description 05/20/2024 Telephone Orthopedic Surgery - [place] 160 175 [facility] [address] [place] [phone] Rinku Galvan MD 175 [facility] [address] [place] [address] Social History Tobacco Use Types Packs/Day Years Used Date Smoking Tobacco: Never Smokeless Tobacco: Never Sex and Gender Information Value Date Recorded Sex Assigned at Not on file Legal Sex Male 5:44 AM EST Gender Identity Not on file Sexual Orientation Not on file documented as of this encounter Progress Notes * Lorie Mackenzie MA - 05/20/2024 1:49 PM EST Spoke with Shayla from MRI dept. They are [facility]. Once approval received, they will contact pt to schedule appt. Called pt, no answer. Left him detailed vm with info above at [phone]. * Nelly Dave - 05/20/2024 11:00 AM EST Pt calling to check status of MRI appt documented in this encounter Plan of Treatment Upcoming Encounters Date Type Department Care Team (Late st Contact Info) Description 09/04/2024 Hospital Encounter [facility] Main OR [address] [place] [phone] Rinku Galvan MD [address] [address] 09/17/2024 11:00 AM EDT Office Visit Orthopedic Surgery - [facility] [address] [phone] Kandace Mays PA [address] [address] Scheduled Procedures Name Priority Associated Diagnoses Date/Ti me ARTHROTOMY KNEE Tear of articular cartilage of knee as current injury, left, subsequent encounter Defect of articular cartilage documented as of this encounter Visit Diagnoses Not on filedocumented in this encounter Care Teams Animal Anatomist Relationship Specialty Start Date End Date Allegra Bush MD [address] [place] [address] [facility] [place], [place] PCP - General Internal Medicine 05/29/18 documented as of this encounter
--- OUTSIDE RECORDS SUMMARY | 2024-06-11 10:11 | XMS_ITS | Encounter Summary ---
Author Organization [facility] Address [address] [place] [address] Care Team Providers Care Ski Technician Name Role Phone Allegra Bush MD Primary Care Provider Reason for Visit * Reason Onset Date Comments Surgery 05/26/2024 Encounter Details Date Type Department Care Team (Late st Contact Info) Description 05/26/2024 Telephone Orthopedic Surgery - [place] 250 175 [facility] 250 [place] [phone] Jasmine Guzman MA Surgery Social History Tobacco Use Types Packs/Day Years Used Date Smoking Tobacco: Never Smokeless Tobacco: Never Sex and Gender Information Value Date Recorded Sex Assigned at Not on file Legal Sex Male 5:44 AM EST Gender Identity Not on file Sexual Orientation Not on file documented as of this encounter Progress Notes * Jasmine Guzman MA - 05/26/2024 1:47 PM EST Hi- Code for this surgery? Case was entered but no code in case. Jasmine Weston documented in this encounter Plan of Treatment Upcoming Encounters Date Type Department Care Team (Late st Contact Info) Description 09/04/2024 Hospital Encounter [facility] Main OR 271 [place] [phone] Rinku Galvan MD 175 [facility] [address] [place] [address] 09/17/2024 11:00 AM EDT Office Visit Orthopedic Surgery - [place] 160 175 [facility] [address] [place] [phone] Kandace Mays PA [address] [facility] [address] [place] [address] Scheduled Procedures Name Priority Associated Diagnoses Date/Ti me ARTHROTOMY KNEE Tear of articular cartilage of knee as current injury, left, subsequent encounter Defect of articular cartilage documented as of this encounter Visit Diagnoses Not on filedocumented in this encounter Care Teams Ski Technician Relationship Specialty Start Date End Date Allegra Bush MD [address] [place], [place] [address]t Of [facility] [employer] [facility] [place], [place] PCP - General Internal Medicine 05/29/18 documented as of this encounter
--- OUTSIDE RECORDS SUMMARY | 2024-06-11 10:11 | XMS_ITS | Encounter Summary ---
Author Organization [facility] Address [address] [place] [address] Care Team Providers Care Work Checker Name Role Phone BushAllegra MD Primary Care Provider + [phone] Reason for Referral * Imaging (Routine) - Pending Review Specialty Diagnoses / Procedures Referred By Bhakti wallace Referred To Contact Radiology Diagnoses Defect of articular cartilage Procedures MR Knee wo Contrast Left Rinku Galvan MD [address] [address] Phone: tel: fax: [address] [address] Phone: tel: Referral ID Status Reason Start Date Expiration Date V isits Requested Visits Authorized [id number] Pending Review 05/07/2024 05/07/2025 1 1 Reason for Visit * Imaging (Routine) - Pending Review Specialty Diagnoses / Procedures Referred By Bhakti wallace Referred To Contact Radiology Diagnoses Defect of articular cartilage Procedures MR Knee wo Contrast Left Rinku Galvan MD [address] [address] Phone: tel: fax: [address] [address] Phone: tel: Referral ID Status Reason Start Date Expiration Date V isits Requested Visits Authorized [id number] Pending Review 05/07/2024 05/07/2025 1 1 Encounter Details Date Type Department Care Team (Latest Contact Info) Description 05/20/2024 7:05 PM EST - 05/20/2024 11:59 PM EST Hospital Encounter [facility] MRI 271 [place] [phone] Defect of articular cartilage Discharge Disposition: Home or Self Care Social History Tobacco Use Types Packs/Day Years Used Date Smoking Tobacco: Never Smokeless Tobacco: Never Sex and Gender Information Value Date Recorded Sex Assigned at Not on file Legal Sex Male 5:44 AM EST Gender Identity Not on file Sexual Orientation Not on file documented as of this encounter Medications at Time of Discharge albuterol HFA (PROAIR HFA ; PROVENTIL HFA ; VENTOLIN HFA) 90 mcg/actuation inhaler Inhale 2 Puffs into the lungs every 4 hours as needed. budesonide-formot Misbah (SYMBICORT) 160-4.5 mcg/actuation inhaler Inhale 2 Puffs into the lungs 2 times daily. celecoxib (CeleBREX) 100 mg capsule Take 1 capsule (100 mg total) by mouth 2 (two) times a day. 60 capsule 3 03/21/2024 cetirizine (ZyrTEC) 10 mg tablet Take 10 mg by mouth daily. citalopram (CeleXA) 40 mg tablet Take 40 mg by mouth daily. EPINEPHrine (EpiPen 2-Mart) 0.3 mg/0.3 mL injection Inject as directed. fluticasone propionate (FLONASE) 50 mcg/actuation nasal spray 2 Sprays by Each Nare route daily. meloxicam (MOBIC) 15 mg tablet Take 15 mg by mouth daily. omeprazole 20 mg tablet,disintegra t, delay rel Take by mouth. documented as of this encounter Discharge Disposition Disposition Code Departure Means Destination Home or Self Care documented in this encounter Plan of Treatment Upcoming Encounters Date Type Department Care Team (Late st Contact Info) Description 09/04/2024 Hospital Encounter [facility] Main OR 271 [place] [phone] Rinku Galvan MD [address] [address] 09/17/2024 11:00 AM EDT Office Visit Orthopedic Surgery - [place] 160 175 [facility] [address] [place] [address] Kandace Mays PA 175 [facility] [address] [place] [address] Scheduled Procedures Name Priority Associated Diagnoses Date/Ti me ARTHROTOMY KNEE Tear of articular cartilage of knee as current injury, left, subsequent encounter Defect of articular cartilage documented as of this encounter Procedures Procedure Name Priority Date/Time Associated Diagnosis Comments MR KNEE WO CONTRAST LEFT Routine 05/20/2024 8:43 PM EST Defect of articular cartilage documented in this encounter Results * MR Knee wo Contrast Left [...] Dictated Date: 05/21/2024 20:11 ET Assigned Physician: KATHY FUENTES Reviewed and Electronically Signed By: KATHY FUENTES Signed Date: 05/21/2024 20:17 ET Workstation ID: [id number] Transcribed By: Self Edit Transcribed Date: 05/21/2024 [...] normal. ??No soft tissue mass. Procedure Note Kathy Fuentes MD - 05/21/2024 PROCEDURE: Left knee [...] Dictated Date: 05/21/2024 20:11 ET Assigned Physician: KATHY FUENTES Reviewed and Electronically Signed By: KATHY FUENTES Signed Date: 05/21/2024 20:17 ET Workstation ID: [id number] Transcribed By: Self Edit Transcribed Date: 05/21/2024 20:11 ET Rinku Galvan MD IMG MRI PROCEDURES Final Resul t documented in this encounter Visit Diagnoses Diagnosis Defect of articular cartilage documented in this encounter Care Teams Work Checker Relationship Specialty Start Date End Date Allegra Bush MD [address] [place], [place] [address]t [facility] [place], [place] PCP - General Internal Medicine 05/29/18 documented as of this encounter
== END 2024-06-11 10:20 | disposition home or self-care (01) ==
PROVIDERS: PCP Nurse Practitioner Family; Visit Provider Nurse Practitioner Family
DX: G44.309 Post-traumatic headache, unspecified, not intractable (principal); G43.109 Migraine with aura, not intractable, without status migrainosus; R29.898 Other symptoms and signs involving the musculoskeletal system
CPT/HCPCS: 99214

== ENCOUNTER → 2024-06-11 09:13 | Outpatient (BNVA) | payer OTHER, SELFPAY | PROVIDERS: PCP Nurse Practitioner Family; Visit Provider Nurse Practitioner Family | DX: G44.309 Post-traumatic headache, unspecified, not intractable (principal); G43.109 Migraine with aura, not intractable, without status migrainosus; R29.898 Other symptoms and signs involving the musculoskeletal system | CPT/HCPCS: 99212 ==

== ENCOUNTER 2024-06-16 19:49 | Emergency (ER) | payer OTHER, SELFPAY ==
--- NOTE | ~2024-06-16 | XR_ITS ---
CLINICAL HISTORY: lac to distal L third digit 3 view left 3rd digit Comparison: X-rays of the left hand from 01/19/2024 Findings: Soft tissue swelling of the 3rd digit with likely distal defect, and with overlying bandage artifacts. No displaced fracture or dislocation of the 3rd digit. 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 Radiopacities noted of the 4th digit. IMPRESSION: 1. No acute fracture or dislocation. 2. Mild osteoarthritis. 3. Soft tissue swelling and likely distal defect of the 3rd digit. This document has been electronically signed by: Christian Joy MD on 06/16/2024 21:55:41
[2024-06-16 20:46] VITALS: BP 118/75; PULSE 76; RESP 20; TEMP 36.4; O2SAT 98; BMI 25.8
--- NOTE | 2024-06-16 20:50 | ED.UPPEXIN ---
HPI - Extremity Injury (Upper) General Chief Complaint: Wound/Laceration Stated Complaint: left finger laceration Related Data Home Medications ?Medication ?Instructions ?Recorded ?Confirmed albuterol sulfate 90 mcg/actuation 2 puff inhalation QID 09/28/22 06/11/24 aerosol inhaler cetirizine 10 mg tablet 10 mg PO DAILY 09/28/22 06/11/24 desonide 0.05 % topical cream 1 appl topical BID 09/28/22 06/11/24 epinephrine 0.3 mg/0.3 mL 0.3 mg IM ONCE PRN 09/28/22 06/11/24 injection, auto-injector omeprazole 20 mg capsule,delayed 20 mg PO DAILY 09/28/22 06/11/24 release sildenafil 100 mg tablet 100 mg PO DAILY PRN 09/28/22 06/11/24 fluticasone propionate 50 1 spray intranasal DAILY PRN 05/15/23 06/11/24 mcg/actuation nasal spray,suspension Previous Rx's ?Medication ?Instructions ?Recorded onabotulinumtoxinA 200 unit 200 unit IM ONCE 12 weeks #1 ea 02/17/24 solution for injection (Botox) ondansetron 4 mg disintegrating 4 mg PO Q8H PRN nausea and 04/22/24 tablet vomiting #10 tabs magnesium oxide 400 mg (241.3 mg 400 mg PO BEDTIME 30 days #30 tabs 06/11/24 magnesium) tablet ubrogepant 100 mg tablet (Ubrelvy) 100 mg PO ONCE PRN migraine 06/11/24 headache 30 days #16 tabs Allergies Allergy/AdvReac Type Severity Reaction Status Date / Time environmental allergies Allergy Unknown Unknown Verified 06/16/24 20:50 No Known Drug Allergies Allergy Unknown Unknown Verified 06/16/24 20:50 shellfish derived Allergy Unknown Hives Verified 06/16/24 20:50 [facility] Past Medical History Medical History History of alcohol dependence Ganglion cyst of flexor tendon sheath of finger of right hand Syncope and collapse Superior glenoid labrum lesion Pain in left knee Obstructive sleep apnea (adult) (pediatric) Mild intermittent asthma, uncomplicated Migraine without aura, not intractable, without status migrainosus Male erectile dysfunction, unspecified Intervertebral disc disorders with radiculopathy, lumbar region Insomnia Gastro-esophageal reflux disease without esophagitis Ganglion Chronic rhinitis Brief loss of consciousness Alcohol dependence in remission Other congenital malformation of penis Seizure disorder Bronchial asthma Tinnitus Migraine headache Sleep apnea Post traumatic stress disorder Surgical History H/O esophagogastroduodenoscopy History of shoulder surgery History of spinal fusion Social History Social History Alcohol intake: current Alcohol intake frequency: holidays/special occasions only Patient Tobacco Use Status: Never used Tobacco Substance Use Type: Marijuana Advance Directives: No Advance Directives Information Provided: No Do you have a plan to hurt others: No Plan Physical Exam Vital Signs: Vital Signs: Last Vital Signs Temp 97.5 F 06/16/24 20:46 Pulse 76 06/16/24 20:46 Resp 20 06/16/24 20:46 BP 118/75 06/16/24 20:46 Pulse Ox 98 06/16/24 20:46 O2 Del Method Room Air 06/16/24 20:46 BMI result Body Mass Index 25.8 Course Course Course Narrative: This is a Rapid Medical Examination (RME) performed by Roseanne Acosta PA-C in triage. Full HPI, ROS, assessment and treatment plan per primary provider in the Main ED. 43 yo male here for eval of lac to distal left 3rd digit sustained while cutting an avocado at home. tetanus UTD. reports continued bleeding. no thinners. Plan: xr, lac repair Reevaluation(s) Reevaluation #1: xrs neg for fracture/ fb. Patient left the emergency department before myself or any of the other clinicians could review or explain physical exam findings, test results, need or lack there of for additional testing, treatment options, or a treatment plan. Discharge Plan Discharge Clinical Impression: Laceration Patient Disposition: Left W/O Completing Treatment Prescriptions: No Action Botox 200 unit recon soln 200 unit IM ONCE 84 Days Qty: 1 3RF Rx Instructions: inject 155 units IM across forehead, scalp, and neck ondansetron 4 mg tablet,disintegrating 4 mg PO Q8H PRN (Reason: nausea and vomiting) Qty: 10 0RF albuterol sulfate 90 mcg/actuation HFA aerosol inhaler 2 puff inhalation QID cetirizine 10 mg tablet 10 mg PO DAILY epinephrine 0.3 mg/0.3 mL auto-injector 0.3 mg IM ONCE PRN omeprazole 20 mg capsule,delayed release(DR/EC) 20 mg PO DAILY sildenafil 100 mg tablet 100 mg PO DAILY PRN Rx Instructions: administer 30 minutes to 4 hours before activity desonide 0.05 % cream 1 appl topical BID fluticasone propionate 50 mcg/actuation spray,suspension 1 spray intranasal DAILY PRN Rx Instructions: administer into each nostril magnesium oxide 400 mg (241.3 mg magnesium) tablet 400 mg PO BEDTIME 30 Days Qty: 30 6RF Rx Instructions: may hold for loose stools Ubrelvy 100 mg tablet 100 mg PO ONCE MDD 2 tabs PRN (Reason: migraine headache) 30 Days Qty: 16 6RF Rx Instructions: take at onset of migraine, may repeat in 2hrs (may take w/ Ibuprofen or Tylenol) Discharge Date/Time: 06/17/24 01:26
--- OUTSIDE RECORDS SUMMARY | 2024-06-17 01:21 | XMS_ITS | Encounter Summary ---
Author Organization [facility] Address [address] [place] [address] Care Team Providers Care Audio Recording Engineer Name Role Phone BushAllegra MD Primary Care Provider + [phone] Reason for Referral * Imaging (Routine) - Pending Review Specialty Diagnoses / Procedures Referred By Bhakti wallace Referred To Contact Radiology Diagnoses Defect of articular cartilage Procedures MR Knee wo Contrast Left Rinku Galvan MD [address] [address] Phone: tel: fax: [address] [address] Phone: tel: Referral ID Status Reason Start Date Expiration Date V isits Requested Visits Authorized [id number] Pending Review 05/07/2024 05/07/2025 1 1 Reason for Visit * Imaging (Routine) - Pending Review Specialty Diagnoses / Procedures Referred By Bhakti wallace Referred To Contact Radiology Diagnoses Defect of articular cartilage Procedures MR Knee wo Contrast Left Rinku Galvan MD [address] [address] Phone: tel: fax: [address] [address] Phone: tel: Referral ID Status Reason Start Date Expiration Date V isits Requested Visits Authorized [id number] Pending Review 05/07/2024 05/07/2025 1 1 Encounter Details Date Type Department Care Team (Latest Contact Info) Description 05/20/2024 7:05 PM EST - 05/20/2024 11:59 PM EST Hospital Encounter [facility] MRI 271 [place] [address] Defect of articular cartilage Discharge Disposition: Home [...] Care Team (Late st Contact Info) Description 07/08/2024 8:45 AM EDT Office Visit Orthopedic Surgery - [place] [address] [phone] Nayeli Barahona MD [address] [address] 09/04/2024 Hospital Encounter [facility] Main OR 271 [place] [address] Rinku Galvan MD 175 [facility] 160 [place] [address] 09/17/2024 11:00 AM EDT Office Visit Orthopedic Surgery - [place] 160 175 [facility] [address] [place] [address] Kandace Mays PA 175 [facility] 160 [place] [address] Scheduled Procedures Name Priority Associated Diagnoses Date/Ti [...] Signed Date: 05/21/2024 20:17 ET Workstation ID: [id number] Transcribed By: Self Edit Transcribed Date: 05/21/2024 [...] Signed Date: 05/21/2024 20:17 ET Workstation ID: [id number] Transcribed By: Self Edit Transcribed Date: 05/21/2024 20:11 ET us Rinku Galvan MD IMG MRI PROCEDURES Final Resul t documented in this encounter Visit Diagnoses Diagnosis Defect of articular cartilage documented in this encounter Care Teams Audio Recording Engineer Relationship Specialty Start Date End Date Allegra Bush MD [address] [place], [place] [address]t [facility] [place], [place] PCP - General Internal Medicine 05/29/18 documented as of this encounter
--- OUTSIDE RECORDS SUMMARY | 2024-06-17 01:21 | XMS_ITS | Encounter Summary ---
Author Organization [facility] Address [address] [place] [address] Care Team Providers Care Aeronautical Project Engineer Name Role Phone Allegra Bush MD Primary Care Provider [phone] Reason for Visit * Reason Onset Date Comments Surgery 05/26/2024 Encounter Details Date Type Department Care Team (Late st Contact Info) Description 05/26/2024 Telephone Orthopedic Surgery [facility] 250 175 [facility] 250 [place] [phone] Jasmine Guzman MA Surgery Social History Tobacco [...] 8:45 AM EDT Office Visit Orthopedic Surgery [facility] 160 175 [facility] 160 [place] [phone] Nayeli Barahona MD 175 [facility] 160 [place] [address] 09/04/2024 Hospital Encounter [facility] Main OR 271 [place] [phone] Rinku Galvan MD [address] [address] 09/17/2024 11:00 AM EDT Office Visit Orthopedic Surgery - [place] [address] [phone] Kandace Mays PA [address] [address] Scheduled Procedures Name Priority Associated Diagnoses Date/Ti me ARTHROTOMY KNEE Tear of articular cartilage of knee as current injury, left, subsequent encounter Defect of articular cartilage documented as of this encounter Visit Diagnoses Not on filedocumented in this encounter Care Teams Aeronautical Project Engineer Relationship Specialty Start Date End Date Allegra Bush MD [address] [place] [address] [facility] [place], [place] PCP - General Internal Medicine 05/29/18 documented as of this encounter
--- OUTSIDE RECORDS SUMMARY | 2024-06-17 01:21 | XMS_ITS | Clinical Summary ---
Author Organization 175 [facility] Address 175 [place] [address] Phone Care Team Providers Care Warble Saw Operator Name Role Phone Allegra Bush MD Primary Care Provider [phone] Allergies Active Allergy Reactions Criticality Noted Date [...] (two) times a day. 60 capsule 3 4 Active onabotulinumtox Indira (BOTOX INJ) Inject as directed. Active cyclobenzaprine (FLEXERIL) 10 mg tablet Take 1 tablet (10 mg total) by mouth 3 (three) times a day if needed for muscle spasms. Active lidocaine (LIDODERM) 5 % patch Apply 1 patch topically 1 (one) time each day. Remove & discard patch within 12 hours or as directed by MD. Active meclizine (ANTIVERT) 25 mg tablet Take 1 tablet (25 mg total) by mouth 3 (three) times a day if needed for dizziness. Active multivitamin with minerals tablet Take 1 tablet by mouth 1 (one) time each day. Active magnesium oxide (MAG-OX) 400 mg magnesium tablet Take 1 tablet (400 mg total) by mouth 1 (one) time each day. Active ubrogepant (UBRELVY) 100 mg tablet Take 1 tablet (100 mg total) by mouth 1 (one) time. 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 [...] Encounters Date Type Department Care Team Description 06/16/2024 3:30 PM EDT Consult Orthopedic Surgery [facility] 160 175 [facility] 160 [place] [address] Nayeli Barahona MD Left hip pain (Primary Dx) 05/26/2024 Telephone Orthopedic Surgery [facility] 250 175 [facility] 250 [place] [address] Jasmine Guzman MA Surgery 05/23/2024 9:00 AM EST Consult Orthopedic Surgery [facility] [address] [address] Rinku Galvan MD Tear of articular cartilage of knee as current injury, left, subsequent encounter (Primary Dx); Defect of articular cartilage 05/20/2024 7:05 PM EST - 05/20/2024 11:59 PM EST Hospital Encounter [facility] MRI 271 [place] [phone] Defect of articular cartilage Discharge Disposition: Home or Self Care 05/20/2024 Telephone Orthopedic Surgery [facility] [address] [address] Rinku Galvan MD 05/07/2024 2:00 PM EST Office Visit Orthopedic Surgery [facility] [address] [address] Rinku Galvan MD Defect of articular cartilage (Primary Dx) 04/23/2024 Telephone Orthopedic Surgery [facility] [address] [address] Erum Colon MA 04/23/2024 Telephone Orthopedic Surgery [facility] [address] [address] Erum Colon [place] 04/16/2024 Telephone Orthopedic Surgery [facility] [address] [address] Erum Colon [place] 03/26/2024 Telephone Orthopedic Surgery [facility] [address] [address] Erum Colon [place] 03/21/2024 Telephone Orthopedic Surgery [facility] [address] [address] Erum Colon [place] 03/20/2024 9:00 AM EST Consult Orthopedic Surgery [facility] [address] [address] Nayeli Barahona MD Left knee pain, unspecified [...] DX :CLARE (obstructive sleep apnea) Alcohol dependence (CMS/HCC) 12/07/2018 DX: Alcohol dependence (HCC) Asthma 06/28/2018 DX:Asthma Social History Tobacco Use [...] - Inhaled Oxygen Concentration - - Weight 73.9 kg (163 lb) 06/16/2024 3:23 PM EDT Height 170.2 cm (5' 7.01 ) 06/16/2024 3:23 PM ED T Body Mass Index 25.52 06/16/2024 3:23 PM EDT Plan of Treatment Upcoming Encounters Date Type Department Care Team (Late st Contact Info) Description 07/08/2024 8:45 AM EDT Office Visit Orthopedic Surgery - [place] [address] [address] Nayeli Barahona MD [address] [address] 09/04/2024 Hospital Encounter [facility] Main OR 271 [place] [phone] Rinku Galvan MD [address] [address] 09/17/2024 11:00 AM EDT Office Visit Orthopedic Surgery - [place] 160 175 [facility] [address] [place] [phone] Kandace Mays PA [address] [facility] [address] [place] [address] Scheduled Procedures Name Priority Associated Diagnoses Date/Ti [...] 01/11/2021, 07/06/2020, 06/15/2020 Influenza Vaccine (#1) 2023 , 01/04/2021, 02/02/2020, Additional history exists DTaP,Tdap,and Td [...] Signed Date: 05/21/2024 20:17 ET Workstation ID: [id number] Transcribed By: Self Edit Transcribed Date: 05/21/2024 [...] Signed Date: 05/21/2024 20:17 ET Workstation ID: [id number] Transcribed By: Self Edit Transcribed Date: 05/21/2024 20:11 ET us Rinku A Isabella MD IMG MRI PROCEDURES Final Resul t * XR Knee 3 Views Left (05/07/2024 1:35 PM EST) Only the most recent of2 resultswithin the time period is included. Anatomical Region Laterality Modality Lower Extremities, Knee Left Computed Radiography Narrative 05/07/2024 2:05 PM EST X-rays taken May 07, 2024. ??Bilateral PA weightbearing views of the knees. ??Lateral view of the left knee. ??[place] view of the left knee. ??No acute osseous abnormalities. ??Good preservation of the articular cartilage in all 3 compartments. ??No significant malalignment. ??No significant tilt or subluxation of the patella. Rinku Galvan MD IMG XR PROCEDURES Final Result * External MRI Report (03/24/2024 4:44 PM EST) Anatomical Region Laterality Modality Magnetic Resonan ce Historical Provider MD ZHANG MRI PROCEDURES Final Result from Last 3 Months Insurance [facility] Care Teams Warble Saw Operator Relationship Specialty Start Date End Date Allegra Bush MD [address] [place], [place] [address]t [facility] [place] PCP - General Internal Medicine 05/29/18
--- OUTSIDE RECORDS SUMMARY | 2024-06-17 01:21 | XMS_ITS | Clinical Summary ---
Author Organization [facility] Address [address] [place] [address] Care Team Providers Care Ambulatory Care Name Role Phone Demarcus Conrad MD Primary Care Provider [phone] Allergies Active Allergy Reactions Criticality Noted Date [...] this topic Medical Devices Implanted Type Area Miner Placer Device Identifier Shelf Expiration Date Model / Serial / Lot [place] Gii Quickanchor Plus Orthocord 2 Cp-2 Arthro Nickel - [id number] - [id number] Implanted:Qty: 2 on 04/20/2014 by Keshia Diaz MD at [facility] Right: Ankle [employer] 12/19/2016 [id number] / / [id number] Screw Lcp 20mm 2.7mm T8 Stardrive Recess Selftap Locking - [id number] - [id number] Implanted:Qty: 1 on 09/10/2014 by Carlos Kuo MD at [facility] Right: Clavicle [employer] 202.220 / / Screw Dcp Lc-Dcp 20mm 3.5mm Selftap Hexagonal Recess - [id number] - [id number] Implanted:Qty: 1 on 09/10/2014 by Carlos Kuo MD at [facility] Right: Clavicle [employer] 204.820 / / Plate Bone 135mm 3.5mm R Superior Clavicle 8h Nonsterile - [id number] - [id number] Implanted:Qty: 1 on 09/10/2014 by Carlos Kuo MD at [facility] and [facility] Right: Clavicle [employer] 02.112.02 0 / / Screw Dcp 18mm 2.7mm Selftap Stainless Steel Bone Cortical - [id number] - [id number] Implanted:Qty: 1 on 09/10/2014 at [facility] Right: Clavicle [employer] 202.818 / / Description:1 screw explante d Screw Dcp Lc-Dcp 14mm 3.5mm Selftap Hexagonal Recess - [id number] - [id number] Implanted:Qty: 1 on 09/10/2014 by Carlos Kuo MD at [facility] Right: Clavicle [employer] 204.814 / / Screw Dcp Lc-Dcp 16mm 3.5mm Selftap Hexagonal Recess - [id number] - [id number] Implanted:Qty: 1 on 09/10/2014 by Carlos Kuo MD at [facility] Right: Clavicle [employer] 204.816 / / Screw Dcp Lc-Dcp 18mm 3.5mm Selftap Hexagonal Recess - [id number] - [id number] Implanted:Qty: 2 on 09/10/2014 by Carlos Kuo MD at [facility] Right: Clavicle [employer] 204.818 / / Screw Lcp 16mm 2.7mm 2.1mm T8 Stardrive Recess Selftap - [id number] - [id number] Implanted:Qty: 1 on 09/10/2014 by Carlos Kuo MD at [facility] Right: Clavicle [employer] 202.216 / / Screw Lcp 18mm 2.7mm T8 Stardrive Recess Selftap Locking - [id number] - [id number] Implanted:Qty: 2 on 09/10/2014 by Carlos Kuo MD at [facility] Right: Clavicle [employer] 202.218 / / Explanted Type Area Miner Placer Device Identifier Shelf Expiration Date Model / Serial / Lot Screw Dcp Lc-Dcp 24mm 3.5mm Selftap [facility] - [id number] - [id number] Implanted:Qty: 1 Explanted:Qty: 1 on 09/10/2014 at [facility] Right: Clavicle [employer] 204.824 / / Description:explanted Care Teams Ambulatory Care Relationship Specialty Start Date End Date Demarcus Conrad MD [address] [address] PCP - General 10/28/14
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
--- OUTSIDE RECORDS SUMMARY | 2024-06-17 01:21 | XMS_ITS | Encounter Summary ---
Author Organization [employer] Address [address] [place] [address] Care Team Providers Care Sewing Machine Bobbin Winder Name Role Phone Allegra Bush MD Primary Care Provider Encounter Details Date Type Department Care Team ([facility] st Contact Info) Description 05/20/2024 Telephone Orthopedic Surgery - [place] 160 175 [facility] [address] [place] [phone] Rinku Galvan MD [address] [facility] [address] [place] [address] Social History Tobacco Use Types Packs/Day Years [...] him detailed vm with info above at [phone]. * Nelly Dave - 05/20/2024 11:00 AM EST Pt calling to check status of MRI appt documented in this encounter Plan of Treatment Upcoming Encounters Date Type Department Care Team (Late st Contact Info) Description 07/08/2024 8:45 AM EDT Office Visit Orthopedic Surgery [facility] [address] [phone] Nayeli Barahona MD [address] [address] 09/04/2024 Hospital Encounter [facility] Main [place] [address] [place] [phone] Rinku Galvan MD [address] [address] 09/17/2024 11:00 AM EDT Office Visit Orthopedic Surgery [facility] [address] [phone] Kandace Mays PA [address] [address] Scheduled Procedures Name Priority Associated Diagnoses Date/Ti me ARTHROTOMY KNEE Tear of articular cartilage of knee as current injury, left, subsequent encounter Defect of articular cartilage documented as of this encounter Visit Diagnoses Not on filedocumented in this encounter Care Teams Sewing Machine Bobbin Winder Relationship Specialty Start Date End Date Allegra Bush MD [address] [place], [place] [address] [place], [place] PCP - General Internal Medicine 05/29/18 documented as of this encounter
== END 2024-06-17 01:26 | disposition left against medical advice (07) ==
PROVIDERS: Emergency Provider Emergency Medicine; PCP Nurse Practitioner Family
DX: S61.213A Laceration without foreign body of left middle finger without damage to nail, initial encounter (principal); M79.642 Pain in left hand; W45.8XXA Other foreign body or object entering through skin, initial encounter; W26.0XXA Contact with knife, initial encounter; Y93.G3 Activity, cooking and baking; Y92.000 Kitchen of unspecified non-institutional (private) residence as the place of occurrence of the external cause; Y99.8 Other external cause status; Z79.899 Other long term (current) drug therapy
CPT/HCPCS: 73140; 99281; 99283

== ENCOUNTER → 2024-06-16 20:48 | Outpatient (BNV) | payer OTHER, SELFPAY | PROVIDERS: PCP Nurse Practitioner Family; Visit Provider Radiology Neuroradiology | DX: R22.32 Localized swelling, mass and lump, left upper limb (principal) | CPT/HCPCS: 73140 ==

== ENCOUNTER 2024-06-24 13:41 | Outpatient (AMB) | payer OTHER, SELFPAY ==
--- NOTE | 2024-06-24 13:57 | MHC.OFFVIS ---
Vital Signs 06/24/24 14:06 Pulse 74 Pulse Source Pulse Oximeter Pulse Oximetry (%) 98 Oxygen Delivery Method Room Air Intake Visit Reasons: Botox Intake Note: Patient presents for botox injection. practice supplied Allergies environmental allergies Allergy (Unknown, Verified 06/24/24 14:05) Unknown No Known Drug Allergies Allergy (Unknown, Verified 06/24/24 14:05) Unknown shellfish derived Allergy (Unknown, Verified 06/24/24 14:05) Hives HPI Comments Details: ? 43y/o female comes for treatment of migraines with botox. ??? Most frequent reported adverse reactions following injection of botox for chronic migraine include neck pain (9%), headache(5%), eyelid ptosis(4%), migraine(4%), muscular weakness(4%), musculuskeletal stiffness(4%), bronchitis(3%), injection site pain (3%), musculoskeletal pain(3%), myalgia(3%), facial paresis(2%), HTN(2%) and muscle spasms(2%) were discussed in detail. ??? Botulinum toxin typeA 200units Lot no [id number] expiration July 2026 was diluted with 4 cc of normal saline . ??? Muscles injected- ??? Frontalis 4 sites ??? Procerus 1 site ??? International Nurse- 2 sites ??? Temporalis- 8 sites ??? Occipitalis- 6 sites ??? Cervical paraspinals- 4 sites ??? Trapezius- 6 sites- 10 units each ??? 5 units each in 31 site ??? Total use- 185units ??? Discarded-15units [facility] Medical History History of alcohol dependence Ganglion cyst of flexor tendon sheath of finger of right hand Syncope and collapse Superior glenoid labrum lesion Pain in left knee Obstructive sleep apnea (adult) (pediatric) Mild intermittent asthma, uncomplicated Migraine without aura, not intractable, without status migrainosus Male erectile dysfunction, unspecified Intervertebral disc disorders with radiculopathy, lumbar region Insomnia Gastro-esophageal reflux disease without esophagitis Ganglion Chronic rhinitis Brief loss of consciousness Alcohol dependence in remission Other congenital malformation of penis Seizure disorder Bronchial asthma Tinnitus Migraine headache Sleep apnea Post traumatic stress disorder Surgical History H/O esophagogastroduodenoscopy History of shoulder surgery History of spinal fusion Social History Alcohol intake: current Alcohol intake frequency: holidays/special occasions only Patient Tobacco Use Status: Never used Tobacco Substance Use Type: Marijuana Physical Exam Vital Signs: Last Vital Signs Pulse 74 06/24/24 14:06 Pulse Ox 98 06/24/24 14:06 Oxygen Delivery Method Room Air 06/24/24 14:06 Const General: cooperative and no acute distress Orientation/consciousness: patient oriented x3 Neuro Other: Bilateral mild posterior cervical tightness Cervical ROM: full w/ tightness on cervical extension. Left Spurling: normal Right Spurling: normal. General: patient oriented x3 and deep tendon reflexes 2+ bilaterally Cognition (Neuro): normal cognition Office Procedures Botulinum toxin Injection 54160 - Migraine Procedure code (CPT) selection complete Office Meds onabotulinumtoxinA 200 unit solution for injection Performing Provider: Elyse Macario MD Performing Location: [facility] Administered by: Elyse Macario MD on 06/24/24 14:41 Dose Route Admin Location Dispensed Lot Number Expiration Date [facility] Implement Mechanic 185 unit subcut 200 units [id number] ALLERGAN/BOTOX Comments: see hpi Assessment & Plan Assessment & Plan (1) Chronic migraine without aura: Code(s): G43.709 - Chronic migraine without aura, not intractable, without status migrainosus Category: Medical Qualifiers: Status migrainosus presence: without status migrainosus Intractability: intractable Qualified Code(s): G43.719 - Chronic migraine without aura, intractable, without status migrainosus Plan Patient tolerated the procedure well He will call with any side effects Orders: Orders AMB Botulinum toxin Injection Today G43.719 - Chronic migraine without aura, intractable, without status migrainosus Medications: New onabotulinumtoxinA 200 units subcut ONCE 1 ea 0RF migraines G43.719 - Chronic migraine without aura, intractable, without status migrainosus Coding Level of Care Code Est Pt Level 1 (09264) Diagnoses Intractable chronic migraine without aura and without status migrainosus G43.719 Status migrainosus presence: without status migrainosus Intractability: intractable CPT Codes Botox Injection - Botox 3: 91007 - Migraine ([id number])
[2024-06-24 14:06] VITALS: PULSE 74; O2SAT 98
== END 2024-06-24 14:42 | disposition home or self-care (01) ==
LOC: HO.HSMS 13:41
PROVIDERS: PCP Family Medicine; Visit Provider Psychiatry & Neurology Neurology
DX: G43.719 Chronic migraine without aura, intractable, without status migrainosus (principal)
CPT/HCPCS: 64615

== ENCOUNTER → 2024-06-24 13:41 | Outpatient (BNVA) | payer OTHER, SELFPAY | PROVIDERS: PCP Family Medicine; Visit Provider Psychiatry & Neurology Neurology | DX: G43.719 Chronic migraine without aura, intractable, without status migrainosus (principal) | CPT/HCPCS: 64615; 99211; J0585 ==

== ENCOUNTER 2024-09-23 09:09 | Outpatient (AMB) | payer OTHER, SELFPAY ==
[2024-09-23 09:13] VITALS: BP 124/80; PULSE 87; O2SAT 98
--- NOTE | 2024-09-23 09:13 | A.OFFVIS_ITS ---
Vital Signs 09/23/24 09:13 Height 5 ft 7 in BP 124/80 Blood Pressure Location Rt brachial Position Sitting Pulse 87 Pulse Source Pulse Oximeter Pulse Oximetry (%) 98 Intake Visit Reasons: Botox Intake Note: Patient presents for botox injection. practice supplied Allergies environmental allergies Allergy (Unknown, Verified 06/24/24 14:05) Unknown No Known Drug Allergies Allergy (Unknown, Verified 06/24/24 14:05) Unknown shellfish derived Allergy (Unknown, Verified 06/24/24 14:05) Hives Medication List - Last Reconciled 09/23/24 by Elyse Macario MD albuterol sulfate 90 mcg/actuation 2 puffs inhalation QID celecoxib (Celebrex) 200 mg PO DAILY cetirizine 10 mg PO DAILY desonide 0.05% 1 appl topical BID epinephrine 0.3 mg IM ONCE PRN fexofenadine 60 mg PO BID fluticasone propion-salmeterol 500-50 mcg/dose 1 inh inhalation BID fluticasone propionate 50 mcg/actuation 1 spray intranasal DAILY PRN magnesium oxide 400 mg PO BEDTIME 30 days omeprazole 20 mg PO DAILY onabotulinumtoxinA (Botox) 200 units IM ONCE 12 weeks ondansetron 4 mg PO Q8H PRN sildenafil 100 mg PO DAILY PRN ubrogepant (Ubrelvy) 100 mg PO ONCE PRN 30 days MDD 2 tabs HPI Comments Details: ? 43y/o female comes for treatment of migraines with botox. ??? Most frequent reported adverse reactions following injection of botox for chronic migraine include neck pain (9%), headache(5%), eyelid ptosis(4%), migraine(4%), muscular weakness(4%), musculuskeletal stiffness(4%), bronchitis(3%), injection site pain (3%), musculoskeletal pain(3%), myalgia(3%), facial paresis(2%), HTN(2%) and muscle spasms(2%) were discussed in detail. ??? Botulinum toxin typeA 200units Lot no [id number] expiration January 2027 was diluted with 4 cc of normal saline . ??? Muscles injected- ??? Frontalis 4 sites ??? Procerus 1 site ??? Technical Service Specialist- 2 sites ??? Temporalis- 8 sites ??? Occipitalis- 6 sites ??? Cervical paraspinals- 4 sites ??? Trapezius- 6 sites- 10 units each ??? 5 units each in 31 site ??? Total use- 185units ??? Discarded-15units [facility] Medical History History of alcohol dependence Ganglion cyst of flexor tendon sheath of finger of right hand Syncope and collapse Superior glenoid labrum lesion Pain in left knee Obstructive sleep apnea (adult) (pediatric) Mild intermittent asthma, uncomplicated Migraine without aura, not intractable, without status migrainosus Male erectile dysfunction, unspecified Intervertebral disc disorders with radiculopathy, lumbar region Insomnia Gastro-esophageal reflux disease without esophagitis Ganglion Chronic rhinitis Brief loss of consciousness Alcohol dependence in remission Other congenital malformation of penis Seizure disorder Bronchial asthma Tinnitus Migraine headache Sleep apnea Post traumatic stress disorder Surgical History H/O esophagogastroduodenoscopy History of shoulder surgery History of spinal fusion Social History Alcohol intake: current Alcohol intake frequency: holidays/special occasions only Patient Tobacco Use Status: Never used Tobacco Substance Use Type: Marijuana Physical Exam Vital Signs: Last Vital Signs Pulse 87 09/23/24 09:13 BP 124/80 09/23/24 09:13 Pulse Ox 98 09/23/24 09:13 Const General: cooperative and no acute distress Orientation/consciousness: patient oriented x3 Neuro Other: Bilateral mild posterior cervical tightness Cervical ROM: full w/ tightness on cervical extension. Left Spurling: normal Right Spurling: normal. General: patient oriented x3 and deep tendon reflexes 2+ bilaterally Cognition (Neuro): normal cognition Office Procedures Botulinum toxin Injection 39284 - Migraine Procedure code (CPT) selection complete Office Meds onabotulinumtoxinA 200 unit solution for injection Performing Provider: Elyse Macario MD Performing Location: [facility] Administered by: Elyse Macario MD on 09/23/24 09:51 Dose Route Admin Location Dispensed Lot Number Expiration Date FORMERLY NAMED [facility] [employer] 185 unit subcut 200 units [id number] ALLERGAN/BOTOX Comments: see HPI Assessment & Plan Assessment & Plan (1) Chronic migraine without aura: Code(s): G43.709 - Chronic migraine without aura, not intractable, without status migrainosus Category: Medical Qualifiers: Status migrainosus presence: without status migrainosus Intractability: intractable Qualified Code(s): G43.719 - Chronic migraine without aura, intractable, without status migrainosus Plan Patient tolerated the procedure well He will call with any side effects Orders: Orders AMB Botulinum toxin Injection Today G43.719 - Chronic migraine without aura, intractable, without status migrainosus Medications: New onabotulinumtoxinA 200 units subcut ONCE 1 ea 0RF botox G43.719 - Chronic migraine without aura, intractable, without status migrainosus Coding Level of Care Code Est Pt Level 1 (48353) Diagnoses Intractable chronic migraine without aura and without status migrainosus G43.719 Status migrainosus presence: without status migrainosus Intractability: intractable CPT Codes Botox Injection - Botox 3: 82385 - Migraine ([id number])
== END 2024-09-23 09:49 | disposition home or self-care (01) ==
LOC: HO.HSMS 09:09
PROVIDERS: PCP Family Medicine; Visit Provider Psychiatry & Neurology Neurology
DX: G43.719 Chronic migraine without aura, intractable, without status migrainosus (principal)
CPT/HCPCS: 64615

== ENCOUNTER → 2024-09-23 09:09 | Outpatient (BNVA) | payer OTHER, SELFPAY | PROVIDERS: PCP Family Medicine; Visit Provider Psychiatry & Neurology Neurology | DX: G43.709 Chronic migraine without aura, not intractable, without status migrainosus (principal); G47.33 Obstructive sleep apnea (adult) (pediatric); J45.20 Mild intermittent asthma, uncomplicated; K21.9 Gastro-esophageal reflux disease without esophagitis; F10.21 Alcohol dependence, in remission; F12.90 Cannabis use, unspecified, uncomplicated | CPT/HCPCS: 64615; 99211; J0585 ==

== ENCOUNTER 2024-12-09 15:20 | Outpatient (AMB) | payer OTHER, SELFPAY ==
--- OUTSIDE RECORDS SUMMARY | 2024-12-05 09:30 | XMS_ITS | Encounter Summary ---
Author Organization [employer] Address [address] [place] [address] Care Team Providers Care Anchor Operator Name Role Phone Bush, Allegra Painting MD Primary Care Provider [phone] Reason for Visit * Reason Comments Post-op Left knee arthroscop y Cariheal trochlea implant Encounter Details Date Type Department Care Team (Late st Contact Info) Description 12/05/2024 9:30 AM EDT Office Visit Orthopedic Surgery - [place] [address] [facility] [address] [place] [id number] Kandace Mays PA [address] [facility] [address] [place] [address] Status post left knee surgery (Primary Dx); Status post cartilage surgery Social History Tobacco Use Types Packs/Day Years Used Date Smoking Tobacco: Never Smokeless Tobacco: Never Sex and Gender Information Value Date Recorded Sex Assigned at Male 11/14/2024 11:47 AM EDT Legal Sex Male 5:44 AM EST Gender Identity Male 11/14/2024 11:47 AM EDT Sexual Orientation Choose not to disclose 2024 11:47 AM EDT documented as of this encounter Last Filed Vital Signs Vital Sign Reading Time Taken Comments Blood Pressure - - Pulse - - Temperature - - Respiratory Rate - - Oxygen Saturation - - Inhaled Oxygen Concentration - - Weight 73.9 kg (163 lb) 12/05/2024 10:00 AM EDT Height 170.2 cm (5' 7.01 ) 12/05/2024 10:00 AM E DT Body Mass Index 25.52 12/05/2024 10:00 AM EDT documented in this encounter Progress Notes * JOSE RAMON Conte - 12/05/2024 9:30 AM EDT Patient: Christian Woodward : 1980 Date: 12/05/2024 Christian Woodward is a 43 y.o. year old male who presents for follow up regarding Chief Complaint Patient presents with Post-op Left knee arthroscopy Cariheal trochlea implant Significant past history: DOS: 09/04/24 Surgeon: Dr Rinku Galvan Procedure: Left knee arthroscopy Cariheal trochlea implant; WBAT with Brace for 2-3 weeks Occupation: Retired Last encounter: Within department: 11/12/2024 With this provider: 11/12/2024 I have obtained verbal consent from Christian Woodward prior to the recording. I have advised Christian Corrigan that he may refuse the recording and require the recording to be turned off at any time during this encounter. HPI: This is a 43 yo male who presents for 9 weeks follow up after procedure noted below. Patient is being followed closely for some redness, swelling and pain medial left knee incision. Began about post-op week 6. No change with antibiotics - cefadroxil - completed 7 day course mid October. History of Present Illness The patient presents for a follow-up evaluation three months post left knee arthroscopy with Cartiheal trochlear cartilage implant. Left Knee Pain and Instability - The patient has discontinued the use of a brace and utilizes a cane for ambulation on uneven surfaces only due to occasional instability. otherwise ambulating Independently and without a limp - The acute knee pain remains unchanged and intensifies following physical activity and in the mornings as well as going downstairs - The patient reports medial knee click and intermittent medial knee pain 1-2 times daily, contingent on activity level. - Pain exacerbates following physical therapy sessions. - The patient descends stairs laterally to mitigate pain but ascends normally. - The condition has improved by over 50% since the surgical intervention. and is please he had the procedure done - Pain management includes the use of an ice machine. - The patient engages in stationary biking and previously participated in aquatic exercises, focusing on strengthening the quadriceps and thigh muscles. Other Medical History - The patient is retired and has a history of traumatic brain injury (TBI). SOCIAL HISTORY Retired. Exercises: bike at home, previously pool exercises. PT: [address] ongoing [employer]: ongoing Occupation: retired Diagnostic studies previously performed: Xray knee 10/24/24; 09/17/24; 05/07/2024 MRI scan Knee: 05/20/2024 Other studies: ACTIVE MEDICATIONS: Current Outpatient Medications Medication Instructions albuterol HFA (PROAIR HFA ; PROVENTIL HFA ; VENTOLIN HFA) 90 mcg/actuation inhaler Inhale 2 Puffs into the lungs every 4 hours as needed. celecoxib (CELEBREX) 200 mg, oral, Daily cetirizine (ZyrTEC) 10 mg tablet Take 10 mg by mouth daily. cyclobenzaprine (FLEXERIL) 10 mg, 3 times daily PRN EPINEPHrine (EpiPen 2-Mart) 0.3 mg/0.3 mL injection Inject as directed. fluticasone propion-salmeteroL (ADVAIR DISKUS) 500-50 mcg/dose diskus inhaler 1 puff, 2 times daily meclizine (ANTIVERT) 25 mg, 3 times daily PRN multivitamin with minerals tablet 1 tablet, Daily omeprazole 20 mg tablet,disintegrat, delay rel Take by mouth. onabotulinumtoxinA (BOTOX INJ) Inject as directed. pseudoephedrine (SUDAFED) 120 mg, Every 12 hours ubrogepant (UBRELVY) 100 mg, Once ALLERGIES: Allergies Allergen Reactions Shellfish Derived PHYSICAL EXAM: Estimated body mass index is 25.52 kg/m?? as calculated from the following: Height as of this encounter: 1.702 m (67.01 ). Weight as of this encounter: 73.9 kg (163 lb). Physical Exam APPEARANCE: Alert and in no acute distress Knee: left Inspection: Upon standing: Mild varus deformity Vascular: Warm and well perfused in the affected extremity and no peripheral edema noted. Palpation: Anterior Patellofemoral region: Nontender Medial Proximal tibial region: Nontender Lateral Proximal tibial region: Nontender Medial Joint line: Tenderness with anteriror medial knee pain as well; non tender in medial parapatella region Lateral Joint line: Nontender Posterior Knee region: None Effusion: positive fluid wave- minimal Range of motion: Knee extension: Full symmetrical extension Knee Flexion: Full symmetrical flexion - 135 Muscle strength: Quadriceps: Atrophy, less than previous exam; 5/5 no pain Hamstring: Strength 5/5 Special tests: Rotation of the tibia: Negative Labs: No results found for: CREATININE No results found for: HGBA1C Imaging: XR Knee 1-2 Views Left Date of Visit: 10/24/2024 Reason for visit: Left knee pain Views: AP and Lateral left knee Comparison: 09/17/24 Findings: Joint space of the medial compartments maintained. Joint space of the lateral compartments maintained. Radiopaque cartiheal implant noted in appropriate positioning and within the trochlea. Positioning is unchanged from prior films dated 09/17/2024. There is slight lucency around the implant which is but not as noticeable in the prior films. No fractures. No bony lesions identified. Impression: Appropriate postop changes as noted above. No acute osseous pathology noted Left knee Read by: Kandace Mays PA-C ASSESSMENT AND PLAN: This is a 43 y.o. year old male who is now 3 months status post Procedure noted above. Overall patient is very pleased he had the procedure done and feels greater than 50% better than his preoperative state. Patient was reassured that his continued symptoms are most likely secondary to the healing process of the Cartiheal implant. He will proceed with rehabilitation and aggressive quadricep strengthening After much discussion regarding 1. Status post left knee surgery 2. Status post cartilage surgery using pictures, the following treatment plan was mutually agreed upon. All questions were answered. Assessment & Plan Postoperative status following left knee arthroscopy with Cartiheal trochlea implant Sharp pain localized to one spot, unchanged. Mild effusion present, less than before. Pain likely due to initial cartilage regrowth. Continue quadriceps strengthening exercises for stability and painreduction. Uses cane for uneven surfaces. -Activity: Continue quadriceps strengthening exercises. Use cane for uneven surfaces. Proceed with activity as tolerated. -Rehabilitation: Continue physical therapy and exercise, including bike and pool exercises. -Patient Education: Patience needed for cartilage regrowth. Monitor and report changes in pain or function. Follow-up: 03/07/2025.with dr Galvan Diagnostic studies: Xray knee 10/24/24; 09/17/24; 05/07/2024 MRI scan Knee: 05/20/2024 No orders of the defined types were placed in this encounter. Follow up in about 3 months (around 03/07/2025) for Post-Op, with roland Rae 6 m. Future appointments: 03/02/2025 regularly scheduled 3m post-op check with dr Galvan Today's documentation was made using voice recognition software.This note may contain grammatical errors secondary to this software. JOSE RAMON Conte cc: Allegra Bush MD documented in this encounter Plan of Treatment Upcoming Encounters Date Type Department Care Team (Late st Contact Info) Description 12/12/2024 1:30 PM EDT Treatment [facility] [address] [phone] Howard Ch, PT 12/15/2024 10:30 AM EDT Treatment [facility] [address] [phone] Dominick Jiang, METEOROLOGY FACULTY MEMBER 12/19/2024 10:30 AM EDT Treatment [facility] [address] [phone] Rosendo Sen, METEOROLOGY FACULTY MEMBER 12/22/2024 10:30 AM EDT Treatment [facility] [address] [phone] Dominick Jiang, METEOROLOGY FACULTY MEMBER 12/26/2024 10:30 AM EDT Treatment [facility] [address] [phone] Rosendo Sen, METEOROLOGY FACULTY MEMBER 01/09/2025 9:30 AM EDT Treatment [facility] [address] [phone] Lauren Ruiz, PT 03/02/2025 10:30 AM EST Office Visit Orthopedic Surgery [facility] [address] [facility] [address] [place] [address] Rinku Galvan MD 175 [facility] 160 [place] [address] documented as of this encounter Goals Goal Patient Goal Type Associated Problems Recent Progress Patient-Stated? Author PT STG (4 weeks) General No Noe Hensley, PT Note: Pt will be indep with current HEP/Force Kandi - met Pt will increase PROM L knee ext/flex to 0-100 deg - met Pt will demo L SLR without lag as indic of improving quad strength - met Indep with brace use - met PT LTG (duration of episode) General No Noe Hensley, PT Note: Pt will ambulate with no device, community distances no deviations Up/dn flight of stairs reciprocally without rail or device PROM L knee full compared to R MMT 5/5 L knee/hip documented as of this encounter Visit Diagnoses Diagnosis Status post left knee surgery- Primary Status post cartilage surgery Other postprocedural status documented in this encounter Care Teams Anchor Operator Relationship Specialty Start Date End Date Allegra Bush MD [address] [place] [address] [facility] [place], [place] PCP - General Internal Medicine 05/29/18 documented as of this encounter
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
[2024-12-09 15:38] VITALS: BP 118/76; PULSE 104; O2SAT 98; BMI 25.6
--- OUTSIDE RECORDS SUMMARY | 2024-12-09 16:27 | XMS_ITS | Clinical Summary ---
Author Organization [facility] Address [address] [place] [address] Care Team Providers Care Farm Agent Name Role Phone Demarcus Conrad MD Primary Care Provider [phone] Allergies Active Allergy Reactions Criticality Noted Date [...] 67 02/08/2015 12:17 PM EST Temperature 36.2 C (97.2 F) 02/08/2015 12:17 PM EST Respiratory Rate 16 09/11/2014 7:21 AM EDT [...] (1 - Tdap) 2001 Influenza Vaccine (#1) 2024 Pneumococcal Vaccine Aged Out No long er eligible based on patient's age to complete this topic RSV Ped < 20 months Aged Out No longe r eligible based on patient's age to complete this topic Medical Devices Implanted Type Area Seam Stay Stitcher Device Identifier Shelf Expiration Date Model / Serial / Lot [place] Gii Quickanchor Plus Orthocord 2 Cp-2 Arthro Nickel - [id number] - [id number] Implanted:Qty: 2 on 04/20/2014 by [place]eshia Diaz [place] [facility] Right: Ankle [employer] 12/19/2016 [id number] / / [id number] Screw Lcp 20mm 2.7mm T8 Stardrive Recess Selftap Locking - [id number] - [id number] Implanted:Qty: 1 on 09/10/2014 by Carlos Kuo [place] [facility] Right: Clavicle [employer] 202.220 / / Screw Dcp Lc-Dcp 20mm 3.5mm Selftap Hexagonal Recess - [id number] - [id number] Implanted:Qty: 1 on 09/10/2014 by [place] Ku[place] [facility] Right: Clavicle [employer] 204.820 / / Plate Bone 135mm 3.5mm R Superior Clavicle 8h Nonsterile - [id number] - [id number] Implanted:Qty: 1 on 09/10/2014 by [place] Ku[place] [facility] Right: Clavicle [employer] 02.112.02 0 / / Screw Dcp 18mm 2.7mm Selftap Stainless Steel Bone Cortical - [id number] - [id number] Implanted:Qty: 1 on 09/10/2014 [place] [facility] Right: Clavicle [employer] 202.818 / / Description:1 screw explante d Screw Dcp Lc-Dcp 14mm 3.5mm Selftap Hexagonal Recess - [id number] - [id number] Implanted:Qty: 1 on 09/10/2014 by Carlos Kuo [place] [facility] Right: Clavicle [employer] 204.814 / / Screw Dcp Lc-Dcp 16mm 3.5mm Selftap Hexagonal Recess - [id number] - [id number] Implanted:Qty: 1 on 09/10/2014 by [place] Ku[place] [facility] Right: Clavicle [employer] 204.816 / / Screw Dcp Lc-Dcp 18mm 3.5mm Selftap Hexagonal Recess - [id number] - [id number] Implanted:Qty: 2 on 09/10/2014 by Carlos Ku[place] [facility] Right: Clavicle [employer] 204.818 / / Screw Lcp 16mm 2.7mm 2.1mm T8 Stardrive Recess Selftap - [id number] - [id number] Implanted:Qty: 1 on 09/10/2014 by Carlos Kuo [place] [facility] Right: Clavicle [employer] 202.216 / / Screw Lcp 18mm 2.7mm T8 Stardrive Recess Selftap Locking - [id number] - [id number] Implanted:Qty: 2 on 09/10/2014 by Carlos Kuo MD [place] [facility] Right: Clavicle [employer] 202.218 / / Explanted Type Area Seam Stay Stitcher Device Identifier Shelf Expiration Date Model / Serial / Lot Screw Dcp Lc-Dcp 24mm 3.5mm Selftap Hexagonal [facility] - [id number] - [id number] Implanted:Qty: 1 Explanted:Qty: 1 on 09/10/2014 at [facility] [place] Right: Clavicle [employer] 204.824 / / Description:explanted Care Teams Farm Agent Relationship Specialty Start Date End Date Demarcus Conrad MD PCP - General 10/28/14
--- OUTSIDE RECORDS SUMMARY | 2024-12-09 16:27 | XMS_ITS | Clinical Summary ---
Author Organization [facility] Address [address] [address] Phone Care Team Providers Care Population Health Coach Name Role Phone Unavailable Primary Care Provider Unavailabl e Social History Tobacco Use Types Packs/Day Years Used Date Smoking Tobacco: Never Assessed Education Answer Date Recorded Are you interested in more education? Not on artur e 03/27/2024 Are you concerned about learning? Not on file 03/27/2024 No 03/27/2024 No 03/27/2024 Digital Access Answer Date Recorded No 03/27/2024 No 03/27/2024 Reliable internet access at home? Not on file 03/27/2024 Device with a working camera? Not on file Sex and Gender Information Value Date Recorded Sex Assigned at Not on file Legal Sex Male 11:44 AM EST Gender Identity Not on file Sexual Orientation Not on file Plan of Treatment Health Maintenance Due Date Last Done Comments Adult Td,Tdap Booster 1982 LIPID PANEL 1982 DEPRESSION SCREENING 1994 SMOKING Hx and SMOKELESS TOB ACCO SCREENING 12/25/1995 HEPATITIS C SCREENING 2000 HIV ONE-TIME SCREENING (18-6 5 YEARS) 2000 COVID-19 VACCINE (2023-2 5 season) 2023 INFLUENZA VACCINE (#1) 2024 HEPATITIS A VACCINES Aged Out No long er eligible based on patient's age to complete this topic HIB VACCINES Aged Out No longer eligi ble based on patient's age to complete this topic MENINGOCOCCAL VACCINES (ACWY) Aged Out No longer eligible based on patient's age to complete this topic MENINGOCOCCAL VACCINES (B) Aged Out N o longer eligible based on patient's age to complete this topic PNEUMOCOCCAL VACCINES (0-49 years) Aged Out No longer eligible based on patient's age to complete this topic Medical Devices Not on file Additional Source Comments The information contained in this document represents components of the legal health record. It is not the complete legal health record.[facility]
--- OUTSIDE RECORDS SUMMARY | 2024-12-09 16:27 | XMS_ITS ---
Author Name [facility] Organization Unknown History of Medication Use Medication Directions Dispensed Refills Start Date End Date Stat us lidocaine (PF) 100 mg/5 mL (2 %) injection syringe Take 3 mL by injection route. 10/13/2024 active lidocaine HCl 10 mg/mL (1 %) injection solution Take 15.5 mL by injection route. 08/15/2024 active triamcinolone acetonide 40 mg/mL suspension for injection Take 60 mg by injection route. 08/15/2024 active lidocaine HCl 10 mg/mL (1 %) injection solution active triamcinolone acetonide 40 mg/mL suspension for injection active lidocaine (PF) 100 mg/5 mL (2 %) injection syringe active omeprazole active Pseudophedrine W/Carbinoxamine active ubrogepant active Problems Problem Status Onset Date Problem Type Date of Resoluti on Source Pain of hip region active 2024-08-24 ProblemAct ENS_AONECT Encounters Encounter Type Encounter Reason Primary Diagnosis Location Date Ambulatory [facility] 10/24/2024 Ambulatory [facility] 08/25/2024 Ambulatory [facility] 08/21/2024 Ambulatory [facility] 08/18/2024 Ambulatory [facility] 08/04/2024 Ambulatory [facility] 08/04/2024 [facility] 08/04/2024 Ambulatory [facility] 07/25/2024 Ambulatory [facility] 07/25/2024 Ambulatory [facility] 07/22/2024 Ambulatory [facility] 07/22/2024 Ambulatory [facility] 07/17/2024
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
== END 2024-12-10 07:42 | disposition home or self-care (01) ==
LOC: HO.HSMS 15:20
PROVIDERS: PCP Nurse Practitioner Family; Referring Provider Nurse Practitioner Family; Visit Provider Nurse Practitioner Family
DX: G43.719 Chronic migraine without aura, intractable, without status migrainosus (principal); G44.329 Chronic post-traumatic headache, not intractable; G43.109 Migraine with aura, not intractable, without status migrainosus; R29.898 Other symptoms and signs involving the musculoskeletal system
CPT/HCPCS: 99214

== ENCOUNTER → 2024-12-09 15:20 | Outpatient (BNVA) | payer OTHER, SELFPAY | PROVIDERS: PCP Nurse Practitioner Family; Visit Provider Nurse Practitioner Family | DX: G43.719 Chronic migraine without aura, intractable, without status migrainosus (principal); G44.309 Post-traumatic headache, unspecified, not intractable; G43.109 Migraine with aura, not intractable, without status migrainosus; R29.898 Other symptoms and signs involving the musculoskeletal system | CPT/HCPCS: 99212 ==

== ENCOUNTER 2024-12-23 15:09 | Outpatient (AMB) | payer OTHER, SELFPAY ==
[2024-12-23 15:10] VITALS: BP 120/78; PULSE 89; O2SAT 97; BMI 25.6
--- NOTE | 2024-12-23 15:10 | A.OFFVIS_ITS ---
Vital Signs 12/23/24 15:10 Height 5 ft 7 in Weight 163 lb 8 oz BMI 25.6 BP 120/78 Blood Pressure Location Rt brachial Position Sitting Pulse 89 Pulse Source Pulse Oximeter Pulse Oximetry (%) 97 Oxygen Delivery Method Room Air Intake Visit Reasons: Botox Intake Note: Botox Warehouse Shipping Clerk Required: No Accompanied by: Self / Same As Patient Allergies environmental allergies Allergy (Unknown, Verified 12/09/24 15:37) Unknown No Known Drug Allergies Allergy (Unknown, Verified 12/09/24 15:37) Unknown shellfish derived Allergy (Unknown, Verified 12/09/24 15:37) Hives Medication List - Last Reconciled 12/23/24 by Elyse Macario MD albuterol sulfate 90 mcg/actuation 2 puffs inhalation QID celecoxib (Celebrex) 200 mg PO DAILY cetirizine 10 mg PO DAILY desonide 0.05% 1 appl topical BID epinephrine 0.3 mg IM ONCE PRN fexofenadine 60 mg PO BID fluticasone propion-salmeterol 500-50 mcg/dose 1 inh inhalation BID fluticasone propionate 50 mcg/actuation 1 spray intranasal DAILY PRN omeprazole 20 mg PO DAILY onabotulinumtoxinA (Botox) 200 units IM ONCE 12 weeks ondansetron 4 mg PO Q8H PRN ubrogepant (Ubrelvy) 100 mg PO ONCE PRN 30 days MDD 2 tabs HPI Comments Details: ? 43y/o female comes for treatment of migraines with botox. ??? Most frequent reported adverse reactions following injection of botox for chronic migraine include neck pain (9%), headache(5%), eyelid ptosis(4%), migraine(4%), muscular weakness(4%), musculuskeletal stiffness(4%), bronchiti s(3%), injection site pain (3%), musculoskeletal pain(3%), myalgia(3%), facial paresis(2%), HTN(2%) and muscle spasms(2%) were discussed in detail. ??? Botulinum toxin typeA 200units Lot no [id number] expiration May 2027 was diluted with 4 cc of normal saline . ??? Muscles injected- ??? Frontalis 4 sites ??? Procerus 1 site ??? Combination Presser- 2 sites ??? Temporalis- 8 sites ??? Occipitalis- 6 sites ??? Cervical paraspinals- 4 sites ??? Trapezius- 6 sites- 10 units each ??? 5 units each in 31 site ??? Total use- 185units ??? Discarded-15units [facility] Medical History History of alcohol dependence Ganglion cyst of flexor tendon sheath of finger of right hand Syncope and collapse Superior glenoid labrum lesion Pain in left knee Obstructive sleep apnea (adult) (pediatric) Mild intermittent asthma, uncomplicated Migraine without aura, not intractable, without status migrainosus Male erectile dysfunction, unspecified Intervertebral disc disorders with radiculopathy, lumbar region Insomnia Gastro-esophageal reflux disease without esophagitis Ganglion Chronic rhinitis Brief loss of consciousness Alcohol dependence in remission Other congenital malformation of penis Seizure disorder Bronchial asthma Tinnitus Migraine headache Sleep apnea Post traumatic stress disorder Surgical History H/O esophagogastroduodenoscopy History of shoulder surgery History of spinal fusion Social History Alcohol intake: current Alcohol intake frequency: holidays/special occasions only Patient Tobacco Use Status: Never used Tobacco Substance Use Type: Marijuana Physical Exam Const General: cooperative and no acute distress Orientation/consciousness: patient oriented x3 Neuro Other: Bilateral mild posterior cervical tightness Cervical ROM: full w/ tightness on cervical extension. Left Spurling: normal Right Spurling: normal. General: patient oriented x3 and deep tendon reflexes 2+ bilaterally Cognition (Neuro): normal cognition Office Procedures Botulinum toxin Injection 13263 - Migraine Procedure code (CPT) selection complete Office Meds onabotulinumtoxinA 200 unit solution for injection Performing Provider: Elyse Macario MD Performing Location: [facility] Administered by: Elyse Macario MD on 12/23/24 15:35 Dose Route Admin Location Dispensed Lot Number Expiration Date [facility] Dairy Cattle Farm Manager 185 unit subcut 200 units [id number] [employer]ERGAN /BOTOX Total Dispensed Waste 200 units 7.5 % Comments: see HPI Assessment & Plan Assessment & Plan (1) Chronic migraine without aura: Code(s): G43.709 - Chronic migraine without aura, not intractable, without status migrainosus Category: Medical Qualifiers: Status migrainosus presence: without status migrainosus Intractability: intractable Qualified Code(s): G43.719 - Chronic migraine without aura, intractable, without status migrainosus Plan Patient tolerated the procedure well He will call with any side effects Orders: Orders AMB Botulinum toxin Injection Today G43.719 - Chronic migraine without aura, intractable, without status migrainosus Coding Level of Care Code Est Pt Level 1 (81035) Diagnoses Intractable chronic migraine without aura and without status migrainosus G43.719 Status migrainosus presence: without status migrainosus Intractability: intractable CPT Codes Botox Injection - Botox 3: 34588 - Migraine ([id number])
--- OUTSIDE RECORDS SUMMARY | 2024-12-23 18:40 | XMS_ITS | Clinical Summary ---
Author Organization [facility] Address [address] [address] Phone Care Team Providers Care Cleaning Professional Name Role Phone Unavailable Primary Care Provider [...] HIV ONE-TIME SCREENING (18-6 5 YEARS) 2000 INFLUENZA VACCINE (#1) 2024 COVID-19 VACCINE (2023-2 5 season) 2024 HEPATITIS A VACCINES Aged Out No [...] It is not the complete legal health record.[facility]
--- OUTSIDE RECORDS SUMMARY | 2024-12-23 18:40 | XMS_ITS | Clinical Summary ---
Author Organization 175 [facility] Address 175 [place] [address] Phone Care Team Providers Care Tool Procurement Coordinator Name Role Phone Bush, Allegra Painting MD Primary Care Provider + [phone] Allergies Active Allergy Reactions Criticality Noted Date [...] He had cervical spine MRI 04/27/2023 at [facility] [place] that overall shows mild degenerative changes, no [...] cortisone injections or acupuncture, in the past care companion seem to make his back pain worse. [...] questions prior to that time. Alcohol dependence (CMS/[facility] V24, CMS/[facility] V28) CLARE (obstructive sleep apnea) 12/07/2018 PTSD (post-traumatic stress disorder) 12/07/2018 Asthma 06/28/2018 Heartburn 06/28/2018 Encounters Date Type Department Care Team Description 12/05/2024 9:30 AM EDT Office Visit Orthopedic Surgery - [place] 160 175 [facility] [address] [place] [phone] Kandace Mays PA Status post left knee surgery (Primary Dx); Status post cartilage surgery 11/25/2024 1:15 PM EDT Treatment [facility] [address] [place] [phone] Lauren Ruiz, PT Chronic patellofemoral pain of right knee (Primary Dx) 11/12/2024 9:30 AM EDT Office Visit [facility] [address] [phone] Kandace Mays PA Status post left knee surgery (Primary Dx); Tear of articular cartilage of knee as current injury, left, subsequent encounter 10/24/2024 9:00 AM EDT Office Visit [facility] [address] [address] Kandace Mays PA Tear of articular cartilage of knee as current injury, left, subsequent encounter (Primary Dx); Status post left knee surgery; Post-operative state 10/13/2024 11:15 AM EDT Treatment [address] [phone] Howard Ch, PT Chronic patellofemoral pain of right knee (Primary Dx) 10/06/2024 8:00 AM EDT Treatment [address] [phone] Dominick Jiang, FUSING MACHINE OPERATOR Chronic patellofemoral pain of right knee (Primary Dx) 10/01/2024 2:30 PM EDT Treatment [address] [phone] Mikhail Espinosa, FUSING MACHINE OPERATOR Chronic patellofemoral pain of right knee (Primary Dx) 09/29/2024 Telephone [facility] [address] [phone] Rinku Galvan MD 09/25/2024 5:30 PM EDT Treatment [address] [address] Mikhail Espinosa, FUSING MACHINE OPERATOR Chronic patellofemoral pain of right knee (Primary Dx) 09/25/2024 Telephone [facility] [address] [phone] Rinku Galvan MD 09/23/2024 5:30 PM EDT Treatment [address] [phone] Mikhail Espinosa PTA Chronic patellofemoral pain of right knee (Primary Dx) from Last 3 Months Surgical [...] DX :CLARE (obstructive sleep apnea) Alcohol dependence ([facility] V24, [facility] V28) 12/07/2018 DX:Alcohol dependence ([facility]) Asthma 06/28/2018 DX:Asthma TBI (traumatic brain injury) (CMS/HCC V24, CMS/HCC V28) Torn ligament left hip Back pain [...] Care Team (Late st Contact Info) Description 12/26/2024 10:30 AM EDT Treatment [facility] 175 [facility] 350 [place] [address] Rosendo Sen, FUSING MACHINE OPERATOR 01/09/2025 9:30 AM EDT Treatment [facility] 175 [facility] [address] [place] [address] Lauren Ruiz, PT 03/02/2025 10:30 AM EST Office Visit Orthopedic Surgery [facility] 160 175 [facility] 160 [place] [phone] Rinku Galvan MD [address] [place] [phone] Health Maintenance Due Date Last Done Comments Hepatitis A Vaccines (1 of 2 - Risk 2-dose series) 2001 HPV Vaccines (2 - 3-dose SCDM series) 05/13/2015 04/15/2015 Hepatitis B Vaccines (2 of 3 - 19+ 3-dose series) 02/04/2019 01/07/2019 Cholesterol Screening (Lipid Panel) 03/12/2022 HIV Screening 03/12/2022 Hepatitis C Screening 03/12/2022 Social Influencers of Health Screening 03/12/2022 Depression Screening 04/09/2024 COVID-19 Vaccine ( - 2024- season) 2024 01/11/2021, 07/06/2020, 06/15/2020 Influenza Vaccine (#1) 2024 3, 01/04/2021, 02/02/2020, Additional history exists DTaP,Tdap,and [...] L knee/hip Medical Devices Implanted Type Area Real Estate Inspector Device Identifier Shelf Expiration Date Model / Serial / Lot Agili-C Implanted:Qty: 1 on 09/04/2024 by Rinku Galvan MD at [facility] Left: Knee [employer]UTHER [employer] NEPHEW 02/07/2028 -075 / 154-130 / 154 Procedures Procedure Name Priority Date/Time Associated Diagnosis Comments XR KNEE 1-2 VIEWS LEFT Routine 10/24/2024 9:15 AM EDT Pain from Last 3 Months Results * XR Knee 1-2 Views Left (10/24/2024 9:15 AM EDT) Anatomical Region Laterality Modality Lower Extremities, Knee [...] Resul t from Last 3 Months Insurance [facility] ADMINISTRATION Advance Directives * Full Code - Default (Latest Code Status on File) Date Activated Date Inactivated Comments 09/04/2024 6:04 AM 09/04/2024 2:53 PM This is ord er is used when code status has not been discussed with the patient, or code status is otherwise unknown/unconfirmed To update the patient's code status, place a code status order. Do not modify or discontinue any currently active code status orders. Care Teams Tool Procurement Coordinator Relationship Specialty Start Date End Date Allegra Bush MD [address] [place], [place] [address] [facility] LUDA Patterson PCP - General Internal Medicine 05/29/18
== END 2024-12-23 15:28 | disposition home or self-care (01) ==
LOC: HO.HSMS 15:09
PROVIDERS: PCP Family Medicine; Visit Provider Psychiatry & Neurology Neurology
DX: G43.719 Chronic migraine without aura, intractable, without status migrainosus (principal)
CPT/HCPCS: 64615

== ENCOUNTER → 2024-12-23 15:09 | Outpatient (BNVA) | payer OTHER, SELFPAY | PROVIDERS: PCP Family Medicine; Visit Provider Psychiatry & Neurology Neurology | DX: G43.719 Chronic migraine without aura, intractable, without status migrainosus (principal) | CPT/HCPCS: 64615; 99211; J0585 ==

== ENCOUNTER 2025-03-24 09:49 | Outpatient (AMB) | payer OTHER, SELFPAY ==
[2025-03-24 09:51] VITALS: BP 106/74; PULSE 84; O2SAT 97; BMI 26.8
--- NOTE | 2025-03-24 09:51 | A.OFFVIS_ITS ---
Vital Signs 03/24/25 09:51 Height 5 ft 7 in Weight 171 lb 6 oz BMI 26.8 BP 106/74 Blood Pressure Location Rt brachial Position Sitting Pulse 84 Pulse Source Pulse Oximeter Pulse Oximetry (%) 97 Oxygen Delivery Method Room Air Intake Visit Reasons: Botox Intake Note: Botox 200 Geology Professor Required: No Accompanied by: Self / Same As Patient Allergies environmental allergies Allergy (Unknown, Verified 03/24/25 09:51) Unknown No Known Drug Allergies Allergy (Unknown, Verified 03/24/25 09:51) Unknown shellfish derived Allergy (Unknown, Verified 03/24/25 09:51) Hives Medication List - Last Reconciled 03/24/25 by Elyse Macario MD albuterol sulfate 90 mcg/actuation 2 puffs inhalation QID cetirizine 10 mg PO DAILY desonide 0.05% 1 appl topical BID epinephrine 0.3 mg IM ONCE PRN fexofenadine 60 mg PO BID fluticasone propion-salmeterol 500-50 mcg/dose 1 inh inhalation BID fluticasone propionate 50 mcg/actuation 1 spray intranasal DAILY PRN omeprazole 20 mg PO DAILY onabotulinumtoxinA (Botox) 200 units IM ONCE 12 weeks ondansetron 4 mg PO Q8H PRN ubrogepant (Ubrelvy) 100 mg PO ONCE PRN 30 days MDD 2 tabs HPI Comments Details: ? 44y/o female comes for treatment of migraines with botox. ??? Most frequent reported adverse reactions following injection of botox for chronic migraine include neck pain (9%), headache(5%), eyelid ptosis(4%), migraine(4%), muscular weakness(4%), musculuskeletal stiffness(4%), bronchitis(3%), injection site pain (3%), musculoskeletal pain(3%), myalgia(3%), facial paresis(2%), HTN(2%) and muscle spasms(2%) were discussed in detail. ??? Botulinum toxin typeA 200units Lot no [id number] expiration June 2027 was diluted with 4 cc of normal saline . ??? Muscles injected- ??? Frontalis 4 sites ??? Procerus 1 site ??? Scheduling Assistant- 2 sites ??? Temporalis- 8 sites ??? Occipitalis- 6 sites ??? Cervical paraspinals- 4 sites ??? Trapezius- 6 sites- 10 units each ??? 5 units each in 31 site ??? Total use- 185units ??? Discarded-15units [facility] Medical History History of alcohol dependence Ganglion cyst of flexor tendon sheath of finger of right hand Syncope and collapse Superior glenoid labrum lesion Pain in left knee Obstructive sleep apnea (adult) (pediatric) Mild intermittent asthma, uncomplicated Migraine without aura, not intractable, without status migrainosus Male erectile dysfunction, unspecified Intervertebral disc disorders with radiculopathy, lumbar region Insomnia Gastro-esophageal reflux disease without esophagitis Ganglion Chronic rhinitis Brief loss of consciousness Alcohol dependence in remission Other congenital malformation of penis Seizure disorder Bronchial asthma Tinnitus Migraine headache Sleep apnea Post traumatic stress disorder Surgical History H/O esophagogastroduodenoscopy History of shoulder surgery History of spinal fusion Social History Alcohol intake: current Alcohol intake frequency: holidays/special occasions only Patient Tobacco Use Status: Never used Tobacco Substance Use Type: Marijuana Physical Exam Vital Signs: Last Vital Signs Pulse 84 03/24/25 09:51 BP 106/74 03/24/25 09:51 Pulse Ox 97 03/24/25 09:51 Oxygen Delivery Method Room Air 03/24/25 09:51 BMI result Body Mass Index 26.8 Const General: cooperative and no acute distress Orientation/consciousness: patient oriented x3 Neuro Other: Bilateral mild posterior cervical tightness Cervical ROM: full w/ tightness on cervical extension. Left Spurling: normal Right Spurling: normal. General: patient oriented x3 and deep tendon reflexes 2+ bilaterally Cognition (Neuro): normal cognition Office Procedures Botulinum toxin Injection 83629 - Migraine Procedure code (CPT) selection complete Office Meds onabotulinumtoxinA 200 unit solution for injection Performing Provider: Elyse Macario MD Performing Location: [facility] Administered by: Elyse Macario MD on 03/24/25 10:24 Dose Route Admin Location Dispensed Lot Number Expiration Date [facility] Button Attaching Machine Operator 185 unit subcut 200 units [id number] ALLERGAN /BOTOX Total Dispensed Waste 200 units 7.5 % Comments: see HPI Assessment & Plan Assessment & Plan (1) Chronic migraine without aura: Code(s): G43.709 - Chronic migraine without aura, not intractable, without status migrainosus Category: Medical Qualifiers: Status migrainosus presence: without status migrainosus Intractability: intractable Qualified Code(s): G43.719 - Chronic migraine without aura, intractable, without status migrainosus Plan Patient tolerated the procedure well He will call with any side effects Orders: Orders AMB Botulinum toxin Injection Today G43.719 - Chronic migraine without aura, intractable, without status migrainosus Coding Level of Care Code Est Pt Level 1 (54310) Diagnoses Intractable chronic migraine without aura and without status migrainosus G43.719 Status migrainosus presence: without status migrainosus Intractability: intractable CPT Codes Botox Injection - Botox 3: 39198 - Migraine ([id number])
--- OUTSIDE RECORDS SUMMARY | 2025-03-24 11:45 | XMS_ITS | Encounter Summary ---
Author Organization [facility] Address [address] [place] [address] Care Team Providers Care Credit Underwriter Name Role Phone Opal Bundy MD Primary Care Provider Encounter Details Date Type Department Care Team (Late st Contact Info) Description 02/16/2025 Scanned Document Orthopedic [address] [phone] Camron Kerr, DO [address] [address] Social History Tobacco Use Types Packs/Day Years Used Date Smoking Tobacco: Never Assessed Sex and Gender Information Value Date Recorded Sex Assigned at Male 01/14/2025 9:46 AM EDT Legal Sex Male 2:54 PM EDT Gender Identity Male 01/14/2025 9:46 AM EDT Sexual Orientation Heterosexual (straight) 01/14 10:00 AM EDT documented as of this encounter Plan of Treatment Upcoming Encounters Date Type Department Care Team (Late st Contact Info) Description 04/06/2025 9:15 AM EST Office Visit Orthopedic [address] [phone] Camron Kerr, DO [address] [address] documented as of this encounter Visit Diagnoses Not on filedocumented in this encounter Care Teams Credit Underwriter Relationship Specialty Start Date End Date Opal Bundy MD [address] [place] [address] PCP - General Internal Medicine 01/14/25 documented as of this encounter
--- OUTSIDE RECORDS SUMMARY | 2025-03-24 11:45 | XMS_ITS | Clinical Summary ---
Author Organization [facility] Address [address] [place] [address] Phone Care Team Providers Care Senior Embedded Software Engineer Name Role Phone Bush, Allegra Painting MD Primary Care Provider + [phone] Allergies Active Allergy Reactions Criticality Noted Date [...] Do not crush, chew, or split. Active Active Problems Problem Noted Date Diagnosed [...] He had cervical spine MRI 04/27/2023 at [facility] that overall shows mild degenerative changes, no [...] cortisone injections or acupuncture, in the past direct care provider seem to make his back pain worse. [...] Encounters Date Type Department Care Team Description 02/17/2025 Results Follow-Up Orthopedic Surgery [facility] [address] [phone] Kandace Mays PA 02/06/2025 Telephone Orthopedic Surgery [facility] [address] [phone] Kandace Mays PA 02/05/2025 7:35 AM EDT - 02/05/2025 11:59 PM EDT Hospital Encounter [facility] MRI [address] [place] [phone] Left knee pain; Status post cartilage surgery Discharge Disposition: Home or Self Care 01/15/2025 Telephone Orthopedic Surgery [facility] [address] [phone] Kandace Mays PA 01/02/2025 11:45 AM EDT Office Visit Orthopedic Surgery [facility] 160 175 [facility] [address] [place] [phone] Kandace Mays PA Left knee pain (Primary Dx); Status post cartilage surgery 01/01/2025 Telephone Orthopedic Surgery - [place] [address] 175 [facility] [address] [place] [phone] Rinku Galvan MD from Last 3 Months [...] DX :CLARE (obstructive sleep apnea) Alcohol dependence ([facility] V24, [facility] V28) 12/07/2018 DX:Alcohol dependence ([facility]) Asthma 06/28/2018 DX:Asthma TBI (traumatic brain injury) ([facility] V24, [facility] V28) Torn ligament left hip Back pain lower back Social History Tobacco Use Types Packs/Day Years Used Date Smoking Tobacco: Never Smokeless Tobacco: Never Sex and Gender Information Value Date Recorded Sex Assigned at Male 11/14/2024 11:47 AM EDT Legal Sex Male 5:44 AM EST Gender Identity Male 11/14/2024 11:47 AM EDT Sexual Orientation Choose not to disclose 2024 11:47 AM EDT Last Filed Vital Signs Vital Sign Reading [...] Care Team (Late st Contact Info) Description 04/27/2025 10:45 AM EST Office Visit Orthopedic Surgery - [place] 160 175 [facility] [address] [place] [phone] Rinku Galvan MD 175 [facility] [address] [place] [address] Health Maintenance Due Date Last Done Comments Hepatitis A Vaccines (1 of 2 - Risk 2-dose series) 2001 HPV Vaccines (2 - 3-dose SCDM series) 05/13/2015 04/15/2015 Hepatitis B Vaccines (2 of 3 - 19+ 3-dose series) 02/04/2019 01/07/2019 Cholesterol Screening (Lipid Panel) 03/12/2022 HIV Screening 03/12/2022 Hepatitis C Screening 03/12/2022 Social Influencers of Health Screening 03/12/2022 Depression Screening 04/09/2024 COVID-19 Vaccine (4 - season) 2024 01/11/2021, 07/06/2020, 06/15/2020 Influenza Vaccine (#1) 2024 3, 01/04/2021, 02/02/2020, Additional history exists DTaP,Tdap,and Td Vaccines (4 - Td or Tdap) 01/18/2034 01/19/2024, 04/17/2023, 04/09/2013 RSV Immunization Adult Patients (1 - 1-dose 75+ series) 2057 MMR Vaccines Aged Out 01/07/2019 No longer [...] L knee/hip Medical Devices Implanted Type Area Head Golf Professional Device Identifier Shelf Expiration Date Model / Serial / Lot Agili-C Implanted:Qty: 1 on 09/04/2024 by Rinku Galvan MD at [facility] Left: Knee [employer] 02/07/2028 -075 / [id number] / 154 Procedures Procedure Name Priority Date/Time Associated Diagnosis Comments MR KNEE WO CONTRAST LEFT Routine 02/05/2025 8:25 AM EDT Left knee pain Status post cartilage surgery XR KNEE 4+ VIEWS LEFT Routine 01/02/2025 11:06 AM EDT Left knee pain from Last 3 Months Results * MR Knee wo Contrast Left (02/05/2025 8:25 AM EDT) Anatomical Region Laterality Modality Lower Extremities, Knee Left Magnetic Resonance 02/06/2025 3:29 AM EDT Impressions 02/06/2025 3:38 AM EDT Scan sensitivity is degraded due to motion. 1. Postsurgical appearance along the central trochlear articular facet with decrease in size of previously seen full-thickness cartilage defect now measuring 5 mm (previously 10 mm) 2. Nonspecific horizontal signal involving the posterior horn of the medial meniscus either representing vascular signal or horizontal tearing -------- FINAL REPORT -------- Dictated By: Katlyn Roberts Dictated Date: 02/06/2025 03:29 ET Assigned Physician: Katlyn Roberts Reviewed and Electronically Signed By: Katlyn Roberts Signed Date: 02/06/2025 03:38 ET Workstation ID: [id number] Transcribed By: Self Edit Transcribed Date: 02/06/2025 03:29 ET Narrative 02/06/2025 3:38 AM EDT INDICATION: Knee pain, chronic, osteoarthritis suspected sp trochlea implant with cartiheal. Now with medial knee pain COMPARISON: May 2024 TECHNIQUE: Multiplanar, multisequence MRI examination was performed of the LEFT knee without intravenous contrast. FINDINGS: Scan sensitivity is degraded due to motion. Menisci:Nonspecific horizontal signal involving the posterior horn of the medial meniscus either representing vascular signal or horizontal tearing. Lateral meniscus is intact. Ligaments:ACL, PCL, MCL, and LCL complex are intact. Tendons:Susceptibility artifact overlying the quadriceps and patellar tendon. No quadriceps or patellar tendon tear. Popliteus tendon is intact. Bones:Bone island near the lateral femoral condyle. No acute fracture or dislocation. Heterogeneous bone marrow signal. Cartilage: Patellofemoral:Postsurgical appearance along the central trochlear articular facet with decrease in size of previously seen full-thickness cartilage defect now measuring 5 mm (previously 10 mm). Medial tibiofemoral:Preserved Lateral tibiofemoral:Preserved Miscellaneous:Scarring in Hoffa's fat pad. Left knee joint fluid. Procedure Note Katlyn Roberts MD - 02/06/2025 INDICATION: Knee pain, chronic, osteoarthritis suspected sp trochlea implant with cartiheal. Now with medial knee pain COMPARISON: May 2024 TECHNIQUE: Multiplanar, multisequence MRI examination was performed ofthe LEFT knee without intravenous contrast. FINDINGS: Scan sensitivity is degraded due to motion. Menisci:Nonspecific horizontal signal involving the posterior horn of themedial meniscus either representing vascular signal or horizontal tearing.Lateral meniscus is intact. Ligaments:ACL, PCL, MCL, and LCL complex are intact. Tendons:Susceptibility artifact overlying the quadriceps and patellartendon. No quadriceps or patellar tendon tear. Popliteus tendon isintact. Bones:Bone island near the lateral femoral condyle. No acute fracture ordislocation. Heterogeneous bone marrow signal. Cartilage: Patellofemoral:Postsurgical appearance along the central trochleararticular facet with decrease in size of previously seen full-thicknesscartilage defect now measuring 5 mm (previously 10 mm). Medial tibiofemoral:Preserved Lateral tibiofemoral:Preserved Miscellaneous:Scarring in Hoffa's fat pad. Left knee joint fluid. IMPRESSION: Scan sensitivity is degraded due to motion. 1. Postsurgical appearance along the central trochlear articular facetwith decrease in size of previously seen full-thickness cartilage defectnow measuring 5 mm (previously 10 mm) 2. Nonspecific horizontal signal involving the posterior horn of themedial meniscus either representing vascular signal or horizontaltearing -------- FINAL REPORT -------- Dictated By: Katlyn Roberts Dictated Date: 02/06/2025 03:29 ET Assigned Physician: Katlyn Roberts Reviewed and Electronically Signed By: Katlyn Roberts Signed Date: 02/06/2025 03:38 ET Workstation ID: [id number] Transcribed By: Self Edit Transcribed Date: 02/06/2025 03:29 ET us K[facility] MRI PROCEDURES Final Resu lt * XR Knee 4+ Views Left (01/02/2025 11:06 AM EDT) Anatomical Region Laterality Modality Lower Extremities, Knee Left Computed Radiography Narrative 01/02/2025 11:33 AM EDT Date of Visit: 01/02/2025 Reason for visit: Left knee pain Views: Lateral, [place], [place], and AP weightbearing left knee Comparison: 7/18/25 Findings: Joint space of the medial compartments maintained. Joint space of the lateral compartments maintained. Radiopaque cartiheal implants noted with appropriate positioning and signs of reabsorption as expected at this time Patella sits centered without significant tilt or translation. No fractures. No bony lesions identified. Impression: Appropriate postop changes as noted above. No acute osseous pathology noted Left knee Read by: Kandace Mays PA-C us [facility] XR PROCEDURES Final Resul t from Last 3 Months Insurance [facility] Advance Directives * Full Code [...] active code status orders. Care Teams Senior Embedded Software Engineer Relationship Specialty Start Date End Date Allegra Bush MD [address] [place], [place] [address]t [facility] LUDA Patterson PCP - General Internal Medicine 05/29/18
--- OUTSIDE RECORDS SUMMARY | 2025-03-24 11:45 | XMS_ITS | Encounter Summary ---
Author Organization [facility] Address [address] [place] [address] Care Team Providers Care Slot Floor Supervisor Name Role Phone Opal Bundy MD Primary Care Provider Encounter Details Date Type Department Care Team (Late st Contact Info) Description 02/10/2025 Scanned Document Orthopedic [address] [phone] Camron Kerr, DO [address] [address] Social History Tobacco Use Types Packs/Day Years [...] 04/06/2025 9:15 AM EST Office Visit Orthopedic [address] [phone] Camron Kerr, DO [address] [address] documented as of this encounter Visit Diagnoses Not on filedocumented in this encounter Care Teams Slot Floor Supervisor Relationship Specialty Start Date End Date Opal Bundy MD [address] [place] [phone] PCP - General Internal Medicine 01/14/25 documented as of this encounter
--- OUTSIDE RECORDS SUMMARY | 2025-03-24 11:46 | XMS_ITS | Clinical Summary ---
Author Organization [facility] Address [address] [place] [address] Care Team Providers Care Returned Goods Repairer Name Role Phone Opal Bundy MD Primary Care Provider Allergies No known active allergies Medications docusate sodium (COLACE) 100 MG capsuleIndicatio ns:Femoroacetabu lar impingement of left hip Take 1 capsule (100 mg total) by mouth 2 (two) times a day as needed for constipation. 28 capsule 5 Active ondansetron (ZOFRAN) 4 MG tabletIndication s:Femoroacetabul ar impingement of left hip Take 1 tablet every 6 hours as needed for nausea. (Do not start this medication until AFTER surgery) 20 tablet 1 5 Active PANTOprazole (PROTONIX) 40 MG EC tabletIndication s:Femoroacetabul ar impingement of left hip Take 1 tablet (40 mg total) by mouth daily. 30 tablet 5 Active aspirin enteric coated (ECOTRIN LOW STRENGTH) 81 MG EC tabletIndication s:Femoroacetabul ar impingement of left hip Take 1 tablet (81 mg total) by mouth 2 times a day. 60 tablet 5 Active naproxen (NAPROSYN) 500 MG tabletIndication s:Femoroacetabul ar impingement of left hip Take 1 tablet (500 mg total) by mouth 2 (two) times a day with meals. Take with meals or food to reduce stomach upset. 42 tablet 5 Active traMADol (ULTRAM) 50 MG tabletIndication s:Femoroacetabul ar impingement of left hip Take 1 tablet (50 mg total) by mouth 4 times daily (every 6 hours) as needed for severe pain. 30 tablet 5 Active traMADol (ULTRAM) 50 MG tabletIndication s:Femoroacetabul ar impingement of left hip Take 1 tablet (50 mg total) by mouth 4 times daily (every 6 hours) as needed for severe pain. 8 tablet 5 Active ondansetron (ZOFRAN) 4 MG tabletIndication s:Femoroacetabul ar impingement of left hip Take 1 tablet every 6 hours as needed for nausea. (Do not start this medication until AFTER surgery) 8 tablet 5 Active Encounters Date Type Department Care Team Description 03/04/2025 2:00 PM EST [facility] [address] [phone] Camron Kerr, DO Femoroacetabular impingement of left hip (Primary Dx) 03/04/2025 1:50 PM EST [facility]illary Procedure [facility] [address] [phone] 02/17/2025 Scanned Document [facility] [address] [phone] Camron Kerr, DO 02/17/2025 Scanned Document [facility] [address] [phone] Camron eKrr, DO 02/16/2025 Scanned Document [facility] [address] [address] Camron Kerr, DO 02/10/2025 Scanned Document [facility] [address] [phone] Camron Kerr, DO 01/14/2025 11:05 AM EDT [facility]illary Procedure [facility] [address] [phone] 01/14/2025 10:30 AM EDT [facility] [address] [phone] Camron Kerr, DO Femoroacetabular impingement of left hip (Primary Dx); Left hip pain 01/14/2025 CC Surg Order [facility] [address] [facility] [address] [place] [phone] Camron Kerr, Femoroacetabular impingement of right hip (Primary Dx); Tear of left acetabular labrum, initial encounter from Last 3 Months Social History Tobacco Use Types Packs/Day Years Used Date Smoking Tobacco: Never Assessed Sex and Gender Information Value Date Recorded Sex Assigned at Male 01/14/2025 9:46 AM EDT Legal Sex Male 2:54 PM EDT Gender Identity Male 01/14/2025 9:46 AM EDT Sexual Orientation Heterosexual (straight) 01/14 10:00 AM EDT Plan of Treatment Upcoming Encounters Date Type Department Care Team (Late st Contact Info) Description 04/06/2025 9:15 AM EST [facility] Visit [facility] [address] [place] [address] Camron Kerr, DO 31 [facility] [address] [place] [address] Health Maintenance Due Date Last Done Comments Hepatitis C Virus Screening 1982 HIV Screening 12/25/1995 DTaP/Tdap/Td Vaccines (1 - Tdap) 2001 Hepatitis B Vaccines (1 of 3 - 19+ 3-dose series) 2001 Influenza Vaccine 11/07/2024 COVID-19 Vaccine ( - 2024-2 6 season) 2024 HPV Vaccines (No Doses Required) Completed Pneumococcal Vaccine: Pediat ru (0-5 Years) and At-Risk Patients (6 to 49 Years) Aged Out No longer eligible b ased on patient's age to complete this topic Procedures Procedure Name Priority Date/Time Associated Diagnosis Comments XR HIP W PELVIS 1 VIEW-LEFT Routine 03/04/2025 1:48 PM EST Femoroacetabular impingement of left hip XR HIP W PELVIS 2 OR 3 VIEWS-LEFT Routine 01/14/2025 11:16 AM EDT Left hip pain from Last 3 Months Results * XR Hip w pelvis 1 view-Left (03/04/2025 1:48 PM EST) Narrative [facility] - 03/04/2025 1:48 PM EST This exam was performed in office at [facility] and images reviewed by orthopedic provider. Any findings are documented within ambulatory encounter note on date of service. Camron Kerr DO [facility] ORDER ALEXANDRA Final Result Performing Organization Address [facility] de Phone Number OAH * XR Hip w pelvis 2 or 3 views-Left (01/14/2025 11:16 AM EDT) Narrative [facility] - 01/14/2025 11:16 AM EDT [facility] by [facility] provider. Any findings are documented within ambulatory encounter note on date of service. Camron Kerr DO [facility] ORDER ALEXANDRA Final Result Performing Organization Address [facility] de Phone Number OA from Last 3 Months Insurance [facility] Care Teams Returned Goods Repairer Relationship Specialty Start Date End Date Opal Bundy MD [address] [place] [id number] PCP - General Internal Medicine 01/14/25
--- OUTSIDE RECORDS SUMMARY | 2025-03-24 11:46 | XMS_ITS | Encounter Summary ---
Author Organization [facility] Address [address] [place] [address] Care Team Providers Care Business Development Sales Executive Name Role Phone Opal Bundy MD Primary Care Provider [phone] Encounter Details Date Type Department Care Team (Late st Contact Info) Description 02/17/2025 Scanned Document Orthopedic [address] [phone] Camron Kerr, DO [address] [place] [address] Social History Tobacco Use Types Packs/Day Years [...] 04/06/2025 9:15 AM EST Office Visit Orthopedic [address] [phone] Camron Kerr, DO [address] [place] [address] documented as of this encounter Visit Diagnoses Not on filedocumented in this encounter Care Teams Business Development Sales Executive Relationship Specialty Start Date End Date Opal Bundy MD [address] [place] [address] PCP - General Internal Medicine 01/14/25 documented as of this encounter
--- OUTSIDE RECORDS SUMMARY | 2025-03-24 11:46 | XMS_ITS | Encounter Summary ---
Author Organization [facility] Address [address] [place] [id number] Care Team Providers Care Ese Teacher Name Role Phone Opal Bundy MD Primary Care Provider Encounter Details Date Type Department Care Team (Late st Contact Info) Description 02/17/2025 Scanned Document Orthopedic [address] [phone] Camron Kerr, DO [address] [address] Social History Tobacco Use Types Packs/Day Years [...] 9:15 AM EST [facility] [address] [phone] Camron Kerr, DO [address] [address] documented as of this encounter Visit Diagnoses Not on filedocumented in this encounter Care Teams Ese Teacher Relationship Specialty Start Date End Date Opal Bundy MD [address] [place] [id number] PCP - General Internal Medicine 01/14/25 documented as of this encounter
--- OUTSIDE RECORDS SUMMARY | 2025-03-24 11:46 | XMS_ITS | Clinical Summary ---
Author Organization [facility] Address [address] [address] Phone Care Team Providers Care Concrete Buster Operator Name Role Phone Unavailable Primary Care Provider [...] 2000 INFLUENZA VACCINE (#1) 2024 COVID-19 VACCINE (2024-2 6 season) 2024 HEPATITIS A VACCINES Aged Out [...] It is not the complete legal health record.[facility]
--- OUTSIDE RECORDS SUMMARY | 2025-03-24 11:46 | XMS_ITS | Clinical Summary ---
Author Organization [facility] [facility] Prior to 09/06/24 Address [address] [place] [address] Care Team Providers Care Electric Blanket Wirer Name Role Phone Demarcus Conrad MD Primary Care Provider [phone] Allergies Active Allergy Reactions Criticality Noted Date [...] this topic Medical Devices Implanted Type Area Medical Insurance Claims Processor Device Identifier Shelf Expiration Date Model / Serial / Lot [place] Gii Quickanchor Plus Orthocord 2 Cp-2 Arthro Nickel - [id number] - [id number] Implanted:Qty: 2 on 04/20/2014 by Keshia Diaz MD at [facility] and Med Right: Ankle [employer] 12/19/2016 [id number] / / [id number] Screw Lcp 20mm 2.7mm T8 Stardrive Recess Selftap Locking - [id number] - [id number] Implanted:Qty: 1 on 09/10/2014 by Carlos Kuo MD at [facility] and Med Right: Clavicle [employer] 202.220 / / Screw Dcp Lc-Dcp 20mm 3.5mm Selftap Hexagonal Recess - [id number] - [id number] Implanted:Qty: 1 on 09/10/2014 by Carlos Kuo MD at [facility] and [facility] Right: Clavicle [employer] 204.820 / / Plate Bone 135mm 3.5mm R Superior Clavicle 8h Nonsterile - [id number] - [id number] Implanted:Qty: 1 on 09/10/2014 by Carlos Kuo MD at [facility] and [facility] Right: Clavicle [employer] 02.112.02 0 / / Screw Dcp 18mm 2.7mm Selftap Stainless Steel Bone Cortical - [id number] - [id number] Implanted:Qty: 1 on 09/10/2014 at [facility] and [facility] Right: Clavicle [employer] 202.818 / / Description:1 screw explante d Screw Dcp Lc-Dcp 14mm 3.5mm Selftap Hexagonal Recess - [id number] - [id number] Implanted:Qty: 1 on 09/10/2014 by Carlos Kuo MD at [facility] and [facility] Right: Clavicle [employer] 204.814 / / Screw Dcp Lc-Dcp 16mm 3.5mm Selftap Hexagonal Recess - [id number] - [id number] Implanted:Qty: 1 on 09/10/2014 by Carlos Kuo MD at [facility] and [facility] Right: Clavicle [employer] 204.816 / / Screw Dcp Lc-Dcp 18mm 3.5mm Selftap Hexagonal Recess - [id number] - [id number] Implanted:Qty: 2 on 09/10/2014 by Carlos Kuo MD at [facility] and Med Right: Clavicle [employer] 204.818 / / Screw Lcp 16mm 2.7mm 2.1mm T8 Stardrive Recess Selftap - [id number] - [id number] Implanted:Qty: 1 on 09/10/2014 by Carlos Kuo MD at [facility] and [facility] Right: Clavicle [employer] 202.216 / / Screw Lcp 18mm 2.7mm T8 Stardrive Recess Selftap Locking - [id number] - [id number] Implanted:Qty: 2 on 09/10/2014 by Carlos Kuo MD at [facility] and Med Right: Clavicle [employer] 202.218 / / Explanted Type Area Medical Insurance Claims Processor Device Identifier Shelf Expiration Date Model / Serial / Lot Screw Dcp Lc-Dcp 24mm 3.5mm Selftap [facility] - [id number] - [id number] Implanted:Qty: 1 Explanted:Qty: 1 on 09/10/2014 [place] [facility] [place]: Clavicle [employer] 204.824 / / Description:explanted Care Teams Electric Blanket Wirer Relationship Specialty Start Date End Date Demarcus Conrad MD PCP - General 10/28/14
--- OUTSIDE RECORDS SUMMARY | 2025-03-24 11:46 | XMS_ITS | Encounter Summary ---
Author Organization [facility] Address [address] [place] [address] Care Team Providers Care Ground Crewman Aircraft Support Name Role Phone Bush, Allegra Painting MD Primary Care Provider [phone] Encounter Details Date Type Department Care Team (Late st Contact Info) Description 02/17/2025 Results Follow-Up Orthopedic Surgery [facility] [address] [place] [address] Kandace Mays PA [address] [place] [address] [place] [address] Social History Tobacco Use Types Packs/Day Years Used Date Smoking Tobacco: Never Smokeless Tobacco: Never Sex and Gender Information Value Date Recorded Sex Assigned at Male 11/14/2024 11:47 AM EDT Legal Sex Male 5:44 AM EST Gender Identity Male 11/14/2024 11:47 AM EDT Sexual Orientation Choose not to disclose 2024 11:47 AM EDT documented as of this encounter Progress Notes * JOSE RAMON Conte - 02/17/2025 4:40 PM EST Patient called. See note. documented in this encounter Plan of Treatment Upcoming Encounters Date Type Department Care Team (Late st Contact Info) Description 04/27/2025 10:45 AM EST Office Visit [facility] [address] [facility] [address] [place] [phone] Rinku Galvan MD 175 [facility] [address] [place] [address] documented as of this encounter Goals Goal Patient Goal Type Associated Problems Recent Progress Patient-Stated? Author PT STG (4 weeks) General No Noe Hensley, PT Note: Pt will be indep with current HEP/Force Akndi - met Pt will increase PROM L [...] on filedocumented in this encounter Care Teams Ground Crewman Aircraft Support Relationship Specialty Start Date End Date Allegra Bush MD [address] [facility] [place], [place] PCP - General Internal Medicine 05/29/18 documented as of this encounter
== END 2025-03-24 12:36 | disposition home or self-care (01) ==
LOC: HO.HSMS 09:50
PROVIDERS: PCP Family Medicine; Visit Provider Psychiatry & Neurology Neurology
DX: G43.719 Chronic migraine without aura, intractable, without status migrainosus (principal)
CPT/HCPCS: 64615

== ENCOUNTER → 2025-03-24 09:49 | Outpatient (BNVA) | payer OTHER, SELFPAY | PROVIDERS: PCP Family Medicine; Visit Provider Psychiatry & Neurology Neurology | DX: G43.719 Chronic migraine without aura, intractable, without status migrainosus (principal) | CPT/HCPCS: 64615; J0585 ==